=== PATIENT | female | born 1935 | race Caucasian/White ===

== ENCOUNTER 2017-03-19 17:22 | Emergency (ER) | payer MEDICARE, BC ==
[2017-03-19] MEDS ORDERED: Ketorolac INJ* 30 MG/ML 1 ML VIAL IV ONE (17:48)
[2017-03-19 18:36] LABS: Hematocrit 45 % (35-47); Hemoglobin 15.6 g/dl (12.0-16.0); Mean Corpuscular HGB Conc 35 g/dl (31-36); Mean Corpuscular Hemoglobin 33 pg (27-31); Mean Corpuscular Volume 94 fL (80-97); Mean Platelet Volume 9 um3 (7.4-10.4); Red Blood Count 4.77 10^6/ul (4.0-5.4); Red Cell Distribution Width 14 % (10.5-15); White Blood Count 9.7 10^3/ul (3.5-10.8)
--- NOTE | 2017-03-19 18:57 | RAD ---
INDICATION: LEFT side chest pain under breast since 2:00 AM. History of coronary artery disease with stent. COMPARISON: May 18, 2015 CT. TECHNIQUE: Dual energy PA and routine lateral views of the chest were obtained. REPORT: Elevated lung volumes and both diffuse mild prominence of the interstitial markings and patchy rarefaction of the mid to upper lung zone interstitial markings. No focal pulmonary lesion, compelling alveolar consolidation, pleural effusion, pneumothorax. The heart, pulmonary vasculature, and mediastinal contours are unremarkable. LEFT neck surgical clips. Multilevel predominant mild thoracic degenerative spondylosis. IMPRESSION: Stigmata of probable obstructive lung disease. No acute pulmonary or cardiac process evident.
[2017-03-19 19:00] LABS: Albumin 4.2 g/dL (3.2-5.2); BUN/Creatinine Ratio 21.9 (8-20); C Reactive Protein 12.37 mg/L (< 5.00); Calcium 9.4 mg/dL (8.6-10.3); EGFR African American 115.1 (>60); EGFR Non-African American 89.5 (>60); Globulin 2.5 g/dL (2-4); Total Bilirubin 0.4 mg/dL (0.2-1.0); Total Protein 6.7 g/dL (6.4-8.9)
[2017-03-19 20:16] VITALS: BP 122/56
--- NOTE | 2017-03-19 22:14 | ED ---
Rosalba Pena Alfonso, scribed for Michael Hernandez MD on 03/19/17 at 1828 . Back Pain - HPI Summary HPI Summary: This patient is a 81 year old female BIBA to [facility] c/o constant sharp left- sided upper back pain since 0200 today. The pain woke her up from sleep. She rates the pain 7/10 in severity. Sx aggravated and alleviated by nothing. Sx not aggravated by breathing or movement. She reports nausea. She denies vomiting. Pt took Tylenol 650 mg and ASA 324MG X2 RADIO OFFICER. Pt was given Zofran IV by EMS RADIO OFFICER. She is a heavy everyday tobacco smoker. - History of Current Complaint Chief Complaint: EDBackInjuryPain Stated Complaint: BACK PAIN Time Seen by Provider: 03/19/17 17:32 Hx Obtained From: Patient Onset/Duration: Sudden Onset, Lasting Hours - 0200 this morning, Still Present Onset/Duration: Started Hours Ago - 0200 this morning, Still Present Timing: Constant Back Pain Location: Is Discrete @ - Left sided upper back Severity Initially: Moderate Severity Currently: Moderate Pain Intensity: 7 Pain Scale Used: 0-10 Numeric Character: Sharp Aggravating Symptom(s): Nothing Alleviating Symptom(s): Nothing Associated Signs And Symptoms: Positive: Other - Positive nausea; negative vomiting - Allergies/Home Medications Allergies/Adverse Reactions: Allergies Allergy/AdvReac Type Severity Reaction Status Date / Time Morphine Allergy Headache Verified 05/18/15 17:34 PMH/Surg Hx/FS Hx/Imm Hx Endocrine/Hematology History: Denies: Hx Diabetes Cardiovascular History: Reports: Hx Angina, Hx Coronary Artery Disease, Hx Hypercholesterolemia, Hx Hypertension, Other Cardiovascular Problems/Disorders - CARDIAC CATH 1998 Denies: Hx Congestive Heart Failure Sensory History: Reports: Hx Contacts or Glasses, Hx Macular Degeneration, 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 1997-inguinal repair. endartarectomy. cardiac cath w/ stents Hx Anesthesia Reactions: Yes - becomes sesverly hypotensive Infectious Disease History: No Infectious Disease History: Denies: Hx Clostridium Difficile, Hx Hepatitis, Hx Human Immunodeficiency Virus (HIV), Hx of Known/Suspected MRSA, Hx Shingles, Hx Tuberculosis, Hx Known/ Suspected VRE, Hx Known/Suspected VRSA, History Other Infectious Disease, Traveled Outside the [place] in Last 30 Days - Family History Known Family History: Positive: Cardiac Disease - Father at 55 from CAD, Diabetes, Other - Colon cancer - Social History Alcohol Use: Rare Substance Use Type: Reports: None Smoking Status (MU): Heavy Every Day Tobacco Smoker Type: Cigarettes Amount Used/How Often: 1 ppd Have You Smoked in the Last Year: Yes Review of Systems Negative: Fever Positive: Nausea. Negative: Vomiting Positive: Arthralgia - left-sided upper back pain All Other Systems Reviewed And Are Negative: Yes Physical Exam Triage Information Reviewed: Yes Vital Signs On Initial Exam: Initial Vitals Temp Pulse Resp BP Pulse Ox 97.9 F 68 16 147/60 95 03/19/17 17:25 03/19/17 17:25 03/19/17 17:25 03/19/17 17:25 03/19/17 17:25 Vital Signs Reviewed: Yes Appearance: Positive: Well-Appearing, No Pain Distress Skin: Positive: Warm, Skin Color Reflects Adequate Perfusion, Dry Head/Face: Positive: Normal Head/Face Inspection Eyes: Positive: Normal ENT: Positive: Normal ENT inspection Neck: Positive: Supple, Nontender Respiratory/Lung Sounds: Positive: Clear to Auscultation, Breath Sounds Present Cardiovascular: Positive: RRR Abdomen Description: Positive: Nontender, Soft Bowel Sounds: Positive: Present Musculoskeletal: Positive: Normal Neurological: Positive: Normal, Sensory/Motor Intact, Alert, Oriented to Person Place, Time, CN Intact II-III Psychiatric: Positive: Affect/Mood Appropriate Diagnostics - Vital Signs Vital Signs Temp Pulse Resp BP Pulse Ox 03/19/17 17:44 97.9 F 75 16 147/60 96 03/19/17 17:25 97.9 F 68 16 147/60 95 - Laboratory Lab Results: Lab Results 03/19/17 03/19/17 03/19/17 Range/Units 18:24 18:24 18:24 WBC 9.7 (3.5-10.8) 10^3/ul RBC 4.77 (4.0-5.4) 10^6/ul Hgb 15.6 (12.0-16.0) g/dl Hct 45 (35-47) % MCV 94 (80-97) fL MCH 33 H (27-31) pg MCHC 35 (31-36) g/dl RDW 14 (10.5-15) % Plt Count 149 L (150-450) 10^3/ul MPV 9 (7.4-10.4) um3 Neut % (Auto) 72.9 (38-83) % Lymph % (Auto) 17.8 L (25-47) % [place] % (Auto) 8.4 (1-9) % Eos % (Auto) 0.5 (0-6) % Baso % (Auto) 0.4 (0-2) % Absolute Neuts (auto) 7.1 (1.5-7.7) 10^3/ul Absolute Lymphs (auto) 1.7 (1.0-4.8) 10^3/ul Absolute Monos (auto) 0.8 (0-0.8) 10^3/ul Absolute Eos (auto) 0 (0-0.6) 10^3/ul Absolute Basos (auto) 0 (0-0.2) 10^3/ul Absolute Nucleated RBC 0 10^3/ul Nucleated RBC % 0 D-Dimer, Quantitative < 200 (Less Than 230) ng/mL Sodium 137 (133-145) mmol/L Potassium 4.0 (3.5-5.0) mmol/L Chloride 104 (101-111) mmol/L Carbon Dioxide 27 (22-32) mmol/L Anion Gap 6 (2-11) mmol/L BUN 14 (6-24) mg/dL Creatinine 0.64 (0.51-0.95) mg/dL Est GFR ( Amer) 115.1 (>60) Est GFR (Non-Af Amer) 89.5 (>60) BUN/Creatinine Ratio 21.9 H (8-20) Glucose 106 H (70-100) mg/dL Lactic Acid (0.5-2.0) mmol/L Calcium 9.4 (8.6-10.3) mg/dL Total Bilirubin 0.40 (0.2-1.0) mg/dL AST 11 L (13-39) U/L ALT 9 (7-52) U/L Alkaline Phosphatase 81 (34-104) U/L Troponin I 0.00 (<0.04) ng/mL C-Reactive Protein 12.37 H (< 5.00) mg/L Total Protein 6.7 (6.4-8.9) g/dL Albumin 4.2 (3.2-5.2) g/dL Globulin 2.5 (2-4) g/dL Albumin/Globulin Ratio 1.7 (1-3) 06/28/17 Range/Units 18:24 WBC (3.5-10.8) 10^3/ul RBC (4.0-5.4) 10^6/ul Hgb (12.0-16.0) g/dl Hct (35-47) % MCV (80-97) fL MCH (27-31) pg MCHC (31-36) g/dl RDW (10.5-15) % Plt Count (150-450) 10^3/ul MPV (7.4-10.4) um3 Neut % (Auto) (38-83) % Lymph % (Auto) (25-47) % [place] % (Auto) (1-9) % Eos % (Auto) (0-6) % Baso % (Auto) (0-2) % Absolute Neuts (auto) (1.5-7.7) 10^3/ul Absolute Lymphs (auto) (1.0-4.8) 10^3/ul Absolute Monos (auto) (0-0.8) 10^3/ul Absolute Eos (auto) (0-0.6) 10^3/ul Absolute Basos (auto) (0-0.2) 10^3/ul Absolute Nucleated RBC 10^3/ul Nucleated RBC % D-Dimer, Quantitative (Less Than 230) ng/mL Sodium (133-145) mmol/L Potassium (3.5-5.0) mmol/L Chloride (101-111) mmol/L Carbon Dioxide (22-32) mmol/L Anion Gap (2-11) mmol/L BUN (6-24) mg/dL Creatinine (0.51-0.95) mg/dL Est GFR ( Amer) (>60) Est GFR (Non-Af Amer) (>60) BUN/Creatinine Ratio (8-20) Glucose (70-100) mg/dL Lactic Acid 1.1 (0.5-2.0) mmol/L Calcium (8.6-10.3) mg/dL Total Bilirubin (0.2-1.0) mg/dL AST (13-39) U/L ALT (7-52) U/L Alkaline Phosphatase (34-104) U/L Troponin I (<0.04) ng/mL C-Reactive Protein (< 5.00) mg/L Total Protein (6.4-8.9) g/dL Albumin (3.2-5.2) g/dL Globulin (2-4) g/dL Albumin/Globulin Ratio (1-3) Result Diagrams: 03/19/17 18:24 03/19/17 18:24 Lab Statement: Any lab studies that have been ordered have been reviewed, and results considered in the medical decision making process. - Radiology CXR Radiology Interpretation Completed By: Radiologist - Stigmata of probable obstructive lung disease. No acute pulmonary or cardiac process evident. - EKG 1756 Cardiac Rate: NL - BPM 67 EKG Rhythm: Sinus Rhythm Back Pain Course/Dx - Course Course Of Treatment: Ms. Fernando presented with left sided back pain that radiates to the front and woke her up at 0200. It has remained constant all day long and is not accompanied by any associated symptoms except some transient nausea and has no exacerbating or relieving features. Her ecg, labs and vitals were all normal and she will be D/C'd with a recommendation for close F/U. - Diagnoses Provider Diagnoses: Chest pain Discharge - Discharge Plan Condition: Stable Disposition: HOME Patient Education Materials: Chest Pain (ED) Referrals: Abilio Osorio MD [Primary Care Provider] - 1 Week Additional Instructions: Follow up with your primary care provider and take ibuprofen. The documentation as recorded by the Rosalba garcia Alfonso accurately reflects the service I personally performed and the decisions made by , Michael Hernandez MD.
== END 2017-03-19 20:10 | disposition home or self-care (01) ==
LOC: ED 17:22
DX: R07.9 Chest pain, unspecified (principal); R11.0 Nausea; F17.210 Nicotine dependence, cigarettes, uncomplicated; Z86.79 Personal history of other diseases of the circulatory system
CPT/HCPCS: 36415; 71020; 80053; 83605; 84484; 85025; 85379; 86140; 93005; 96374; 99283; J1885

== ENCOUNTER 2017-03-20 15:05 | Observation (INO) | payer MEDICARE, BC ==
[2017-03-20] MEDS ORDERED: Aspirin Low Dose CHEW TAB* 81 MG PO ONE (16:49)
[2017-03-20] MEDS ORDERED: Ondansetron INJ* 2 MG/ML VIAL IV ONE (16:49)
[2017-03-20] MEDS ORDERED: NS 0.9% 1000 ML* 1,000 ML IV ONE (16:49)
[2017-03-20] MEDS ORDERED: Lidocaine 2% VISCOUS* 15 ML UDC PO ONE (16:50)
[2017-03-20] MEDS ORDERED: Al Hydrox/Mg Hydrox/Simet LIQ* 30 ML UDC PO ONE (16:50)
[2017-03-20 17:28] LABS: Hematocrit 47 % (35-47); Hemoglobin 15.8 g/dl (12.0-16.0); Mean Corpuscular HGB Conc 34 g/dl (31-36); Mean Corpuscular Hemoglobin 32 pg (27-31); Mean Corpuscular Volume 95 fL (80-97); Mean Platelet Volume 9 um3 (7.4-10.4); Red Blood Count 4.94 10^6/ul (4.0-5.4); Red Cell Distribution Width 14 % (10.5-15); White Blood Count 11.6 10^3/ul (3.5-10.8)
[2017-03-20 17:45] LABS: Albumin 4.2 g/dL (3.2-5.2); BUN/Creatinine Ratio 26.8 (8-20); Calcium 9.4 mg/dL (8.6-10.3); EGFR African American 134.3 (>60); EGFR Non-African American 104.4 (>60); Globulin 2.6 g/dL (2-4); Potassium 4.1 mmol/L (3.5-5.0); Total Bilirubin 0.5 mg/dL (0.2-1.0); Total Protein 6.8 g/dL (6.4-8.9)
[2017-03-20] MEDS ORDERED: Iohexol 350* (CONTRAST) 500 ML MDV IV ONE (17:57)
[2017-03-20 18:08] LABS: TSH (Thyroid Stimulating Horm) 2.15 mcIU/mL (0.34-5.60)
--- NOTE | 2017-03-20 18:23 | RAD ---
Indication: Upper abdominal pain. Comparison: No relevant prior exams available on the [facility] PACS for comparison. Technique: RIGHT upper quadrant ultrasound. Report: Appropriate direction flow documented in the portal and hepatic veins. 14.6 cm liver is echogenic in echogenicity. Negative for focal hepatic lesions. Negative for intrahepatic biliary dilatation. 4.6 mm common bile duct. Adequately distended gallbladder with normal 2.4 mm wall is without pathologic finding. Negative for sonographic Herrmann's sign. Unremarkable well visualized pancreas. Negative for ascites. 10.6 x 4.6 x 5.1 cm LEFT kidney with normal cortical echogenicity is remarkable for a low suspicion parapelvic cysts at the lower pole. Approximate 5 mm echogenic focus at the upper pole is suspicious for a probable calyceal stone without caliectasis although there is no posterior acoustic shadowing to confirm presence of a stone. No suspicious lesions of the RIGHT kidney. IMPRESSION: 1. Hepatosteatosis . 2. Negative for gallbladder pathology. 3. Probable 5 mm nonobstructing stone upper pole RIGHT kidney.
[2017-03-20 18:58] LABS: Urine Bacteria Absent (Absent); Urine Bilirubin Negative (Negative); Urine Glucose Negative (Negative); Urine Nitrite Negative (Negative)
--- NOTE | 2017-03-20 19:23 | ED ---
Taylor Pena Salem, scribed for Patricio Mack MD on 03/20/17 at 1637 . Abdominal Pain/Female - HPI Summary HPI Summary: Patient is a 81 y/o F who presents to the ED with 9.5/10 upper abd pain and 7/ 10 left posterior chest pain since 0200 yesterday. She states that pain began in left posterior chest and abd pain followed. She also states that she was in the ED yesterday and per EMR, labs, EKG, and CXR were all negative. She denies taking pain or nausea medication home with her. She reports continued nausea and loss of appetite, but denies flank pain or changes in BM or urination. She states that pain is unchanged with anything. PMHx of diverticulosis, CAD with stent placement, and HLD, but denies hx of DM or GERD. PSHx of corpus luteum cyst surgery, twice, but denies other abd surgeries. She reports taking ASA daily. - History of Current Complaint Chief Complaint: EDAbdPain Stated Complaint: ABD AND BACK PAIN/NAUSEA Time Seen by Provider: 03/20/17 16:22 Hx Obtained From: Patient Onset/Duration: Gradual Onset, Lasting Days, Still Present Timing: Constant Severity Initially: Moderate Severity Currently: Moderate Pain Intensity: 8 Pain Scale Used: 0-10 Numeric Location: Discrete At: RUQ, Discrete At: LUQ Radiates: Yes Radiates to: Chest Aggravating Factor(s): Nothing Alleviating Factor(s): Nothing Associated Signs and Symptoms: Positive: Chest Pain, Back Pain, Decreased Appetite, Nausea, Other: - Abd pain.. 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 1997-inguinal repair. endartarectomy. cardiac cath w/ stents Hx Anesthesia Reactions: Yes - becomes sesverly hypotensive Infectious Disease History: No Infectious Disease History: Denies: Hx Clostridium Difficile, Hx Hepatitis, Hx Human Immunodeficiency Virus (HIV), Hx of Known/Suspected MRSA, Hx Shingles, Hx Tuberculosis, Hx Known/ Suspected VRE, Hx Known/Suspected VRSA, History Other Infectious Disease, Traveled Outside the [place] in Last 30 Days - Family History Known Family History: Positive: Cardiac Disease - Father at 55 from CAD, Diabetes, Other - Colon cancer. Diverticulosis. - Social History Alcohol Use: Rare Hx Substance Use: No Substance Use Type: Reports: None Hx Tobacco Use: Yes Smoking Status (MU): Heavy Every Day Tobacco Smoker Type: Cigarettes Amount Used/How Often: 1 ppd Have You Smoked in the Last Year: Yes Review of Systems Positive: Chest Pain Positive: Abdominal Pain, Nausea, Other - Loss of appetite. Genitourinary: Other - No changes in BM. Positive: no symptoms reported. Negative: flank pain Positive: Other - Back pain: upper, left. All Other Systems Reviewed And Are Negative: Yes Physical Exam Triage Information Reviewed: Yes Vital Signs On Initial Exam: Initial Vitals Temp Pulse Resp BP Pulse Ox 98.4 F 84 20 143/52 94 03/20/17 15:08 03/20/17 15:08 03/20/17 15:08 03/20/17 15:08 03/20/17 15:08 Vital Signs Reviewed: Yes Appearance: Positive: Well-Appearing, Pain Distress - Mild. Skin: Positive: Warm, Skin Color Reflects Adequate Perfusion, Dry Head/Face: Positive: Normal Head/Face Inspection Eyes: Positive: EOMI, CHITRA Neck: Positive: Supple, Nontender Respiratory/Lung Sounds: Positive: Clear to Auscultation, Breath Sounds Present Cardiovascular: Positive: RRR Abdomen Description: Positive: Nontender, Soft Bowel Sounds: Positive: Present Musculoskeletal: Positive: Normal, Strength/ROM Intact, Other - No pedal edema. Neurological: Positive: Normal, Sensory/Motor Intact, Alert, Oriented to Person Place, Time Psychiatric: Positive: Affect/Mood Appropriate Diagnostics - Vital Signs Vital Signs Temp Pulse Resp BP Pulse Ox 03/20/17 15:10 98.4 F 84 20 143/52 98 03/20/17 15:08 98.4 F 84 20 143/52 94 - Laboratory Lab Results: Lab Results 03/20/17 03/20/17 03/20/17 Range/Units 16:21 17:15 17:15 WBC 11.6 H (3.5-10.8) 10^3/ul RBC 4.94 (4.0-5.4) 10^6/ul Hgb 15.8 (12.0-16.0) g/dl Hct 47 (35-47) % MCV 95 (80-97) fL MCH 32 H (27-31) pg MCHC 34 (31-36) g/dl RDW 14 (10.5-15) % Plt Count 150 (150-450) 10^3/ul MPV 9 (7.4-10.4) um3 Neut % (Auto) 79.1 (38-83) % Lymph % (Auto) 12.4 L (25-47) % [place] % (Auto) 7.7 (1-9) % Eos % (Auto) 0.2 (0-6) % Baso % (Auto) 0.6 (0-2) % Absolute Neuts (auto) 9.2 H (1.5-7.7) 10^3/ul Absolute Lymphs (auto) 1.4 (1.0-4.8) 10^3/ul Absolute Monos (auto) 0.9 H (0-0.8) 10^3/ul Absolute Eos (auto) 0 (0-0.6) 10^3/ul Absolute Basos (auto) 0.1 (0-0.2) 10^3/ul Absolute Nucleated RBC 0 10^3/ul Nucleated RBC % 0 INR (Anticoag Therapy) 1.00 (0.89-1.11) APTT 30.9 (26.0-36.3) seconds Sodium (133-145) mmol/L Potassium (3.5-5.0) mmol/L Chloride (101-111) mmol/L Carbon Dioxide (22-32) mmol/L Anion Gap (2-11) mmol/L BUN (6-24) mg/dL Creatinine (0.51-0.95) mg/dL Est GFR ( Amer) (>60) Est GFR (Non-Af Amer) (>60) BUN/Creatinine Ratio (8-20) Glucose (70-100) mg/dL Lactic Acid (0.5-2.0) mmol/L Calcium (8.6-10.3) mg/dL Magnesium (1.9-2.7) mg/dL Total Bilirubin (0.2-1.0) mg/dL AST (13-39) U/L ALT (7-52) U/L Alkaline Phosphatase (34-104) U/L Total Creatine Kinase (10-223) U/L CK-MB (CK-2) (0.6-6.3) ng/mL Troponin I (<0.04) ng/mL C-Reactive Protein (< 5.00) mg/L B-Natriuretic Peptide ( - 100) pg/mL Total Protein (6.4-8.9) g/dL Albumin (3.2-5.2) g/dL Globulin (2-4) g/dL Albumin/Globulin Ratio (1-3) Lipase (11.0-82.0) U/L TSH (0.34-5.60) mcIU/mL Urine Color Yellow Urine Appearance Turbid Urine pH 5.0 (5-9) Ur Specific [place] 1.025 (1.010-1.030) Urine Protein Negative (Negative) Urine Ketones Negative (Negative) Urine Blood Negative (Negative) Urine Nitrate Negative (Negative) Urine Bilirubin Negative (Negative) Urine Urobilinogen Negative (Negative) Ur Leukocyte Esterase Trace H (Negative) Urine WBC (Auto) Trace(0-5/hpf) (Absent) Urine RBC (Auto) Absent (Absent) Ur Squamous Epith Cells Present H (Absent) Amorphous Crystals Present H (Absent) Urine Bacteria Absent (Absent) Urine Glucose Negative (Negative) Urine Ascorbic Acid * H (Negative) 03/20/17 03/20/17 03/20/17 Range/Units 17:15 17:15 17:15 WBC (3.5-10.8) 10^3/ul RBC (4.0-5.4) 10^6/ul Hgb (12.0-16.0) g/dl Hct (35-47) % MCV (80-97) fL MCH (27-31) pg MCHC (31-36) g/dl RDW (10.5-15) % Plt Count (150-450) 10^3/ul MPV (7.4-10.4) um3 Neut % (Auto) (38-83) % Lymph % (Auto) (25-47) % [place] % (Auto) (1-9) % Eos % (Auto) (0-6) % Baso % (Auto) (0-2) % Absolute Neuts (auto) (1.5-7.7) 10^3/ul Absolute Lymphs (auto) (1.0-4.8) 10^3/ul Absolute Monos (auto) (0-0.8) 10^3/ul Absolute Eos (auto) (0-0.6) 10^3/ul Absolute Basos (auto) (0-0.2) 10^3/ul Absolute Nucleated RBC 10^3/ul Nucleated RBC % INR (Anticoag Therapy) (0.89-1.11) APTT (26.0-36.3) seconds Sodium 135 (133-145) mmol/L Potassium 4.1 (3.5-5.0) mmol/L Chloride 101 (101-111) mmol/L Carbon Dioxide 26 (22-32) mmol/L Anion Gap 8 (2-11) mmol/L BUN 15 (6-24) mg/dL Creatinine 0.56 (0.51-0.95) mg/dL Est GFR ( Amer) 134.3 (>60) Est GFR (Non-Af Amer) 104.4 (>60) BUN/Creatinine Ratio 26.8 H (8-20) Glucose 102 H (70-100) mg/dL Lactic Acid 0.9 (0.5-2.0) mmol/L Calcium 9.4 (8.6-10.3) mg/dL Magnesium 2.0 (1.9-2.7) mg/dL Total Bilirubin 0.50 (0.2-1.0) mg/dL AST 11 L (13-39) U/L ALT 9 (7-52) U/L Alkaline Phosphatase 78 (34-104) U/L Total Creatine Kinase 31 (10-223) U/L CK-MB (CK-2) 1.4 (0.6-6.3) ng/mL Troponin I 0.00 (<0.04) ng/mL C-Reactive Protein 34.00 H (< 5.00) mg/L B-Natriuretic Peptide 37 ( - 100) pg/mL Total Protein 6.8 (6.4-8.9) g/dL Albumin 4.2 (3.2-5.2) g/dL Globulin 2.6 (2-4) g/dL Albumin/Globulin Ratio 1.6 (1-3) Lipase 108 H (11.0-82.0) U/L TSH 2.15 (0.34-5.60) mcIU/mL Urine Color Urine Appearance Urine pH (5-9) Ur Specific [place] (1.010-1.030) Urine Protein (Negative) Urine Ketones (Negative) Urine Blood (Negative) Urine Nitrate (Negative) Urine Bilirubin (Negative) Urine Urobilinogen (Negative) Ur Leukocyte Esterase (Negative) Urine WBC (Auto) (Absent) Urine RBC (Auto) (Absent) Ur Squamous Epith Cells (Absent) Amorphous Crystals (Absent) Urine Bacteria (Absent) Urine Glucose (Negative) Urine Ascorbic Acid (Negative) Result Diagrams: 03/20/17 17:15 03/20/17 17:15 Lab Statement: Any lab studies that have been ordered have been reviewed, and results considered in the medical decision making process. - CT CTA CHEST CT Interpretation Completed By: Radiologist - IMPRESSION: see EMR pending radiology. - Ultrasound No standard instances Ultrasound Interpretation Completed By: Radiologist - US GALLBLADDER: IMPRESSION : 1. Hepatosteatosis . 2. Negative for gallbladder pathology. 3. Probable 5 mm nonobstructing stone upper pole RIGHT kidney. - EKG 1849 EKG Interpretation: NSR @ 68 bpm with PVC's. No ectopy. Abdominal Pain Fem Course/Dx - Course Course Of Treatment: No critical care time. Admit hospitalist stable. - Diagnoses Provider Diagnoses: Abdominal pain, Chest pain - Provider Notifications Discussed Care Of Patient With: Prosper Gerber Time Discussed With Above Provider: 19:06 Instructed by Provider To: Admit As Inpatient Admit/Transition Orders Completed By ED Provider: Yes Discharge - Discharge Plan Condition: Stable Disposition: ADMITTED TO [facility] Referrals: Abilio Osorio MD [Primary Care Provider] - The documentation as recorded by the Taylor garcia Salem accurately reflects the service I personally performed and the decisions made by , Patricio Mack MD.
--- NOTE | 2017-03-20 20:02 | RAD ---
INDICATION: Upper abdominal and back pain. Nausea. Post fallopian tube and ovary resection. Post inguinal hernia repair. Coronary artery disease with stents. COMPARISON: RIGHT upper quadrant ultrasound of the same date. May 18, 2015 CT. TECHNIQUE: Multidetector CT images were obtained from the lung apices to the ischial tuberosities with 100 mL Omnipaque 350 IV contrast. Oral contrast administered. CT pulmonary angiogram protocol. Multiplanar reformation including maximum intensity projection images of the thorax. CHEST REPORT: Minimal dependent atelectasis. Negative for pulmonary infiltrate, focal pulmonary lesion, pleural effusion, pneumothorax. Negative for thoracic lymphadenopathy, cardiomegaly, pericardial effusion. Cardiac stents noted. Normal diameter thoracic aorta with minimal atherosclerotic plaque. Negative for aortic dissection. No filling defects are identified from the main to the subsegmental pulmonary arteries to indicate presence of a pulmonary embolism. Negative for suspicious thoracic osseous lesions or fractures. CHEST IMPRESSION: 1. Negative for pulmonary embolism. 2. Negative for thoracic aortic aneurysm or dissection. 3. No acute intrathoracic disease evident. ABDOMEN PELVIS REPORT: Unremarkable liver and gallbladder. Negative for biliary dilatation. Mild reticulation of the fat surrounding the uncinate process of the pancreas. No visualized focal pancreatic lesion or duct dilatation. No calcifications visualized along the course of the common bile duct. Unremarkable spleen. Noted reticulation of the retroperitoneal fat surrounding the uncinate process of the pancreas is also inseparable from the proximal third segment of the duodenum without gross duodenal wall thickening. No CT abnormality of the jejunum, ileum, or infra cecal appendix. Severe colonic diverticulosis without findings of diverticulitis. Negative for ascites, free air, significant hernias. Normal adrenal glands. Symmetric nephrograms and pyelograms. Negative for hydronephrosis. No suspicious focal renal lesions. Small parapelvic cyst inferior pole RIGHT kidney. Negative for nephrolithiasis or hydronephrosis. Echogenic focus on ultrasound of the same date likely corresponds with a focus of medullary fat without concern. Unremarkable nondilated ureters and distended urinary bladder as well as the anteverted uterus and adnexal regions. Negative for lymphadenopathy. Atherosclerotic plaque of the abdominal aorta and iliac arteries without aneurysm. Partial decompression of the IVC suggesting lower volume state. 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 Negative for suspicious focal osseous lesions or fracture. ABDOMEN PELVIS IMPRESSION: 1. Mild reticulation of the fat surrounding the uncinate process of the pancreas most likely secondary to mild acute pancreatitis. Mild duodenitis would also be possible. No retroperitoneal loculated fluid collection or abnormal gas evident. 2. Severe colonic diverticulosis without evidence for diverticulitis. Normal appendix documented. 3. Negative for lymphadenopathy.
[2017-03-20] MEDS ORDERED: Metoprolol Succinate XL TAB* 25 MG PO SCH (21:00)
[2017-03-20] MEDS ORDERED: Aspirin EC Low Dose* 81 MG TAB.EC PO SCH (21:00)
[2017-03-20] MEDS: Ketorolac INJ* 15 MG/ML 1 ML VIAL IV PUSH PRN (22:42)
[2017-03-20] MEDS: NS 0.9% 1000 ML* 1,000 ML IV SCH (22:43)
[2017-03-20] MEDS: Ondansetron INJ* 2 MG/ML VIAL IV PRN (23:42)
[2017-03-21] MEDS ORDERED: Nicotine Inhaler* 10 MG AMP INH PRN (03:31)
[2017-03-21] MEDS: Heparin VIAL(*) 5000 UNITS/ML VIAL (FIVE THOUSAND) SUBCUT SCH ×2 (05:28→13:45)
[2017-03-21] MEDS ORDERED: Mouth Piece, Nicotine* 1 EACH CARTRIDGE ONE (05:56)
[2017-03-21] MEDS: Ketorolac INJ* 15 MG/ML 1 ML VIAL IV PUSH PRN (06:08)
[2017-03-21] MEDS: Ondansetron INJ* 2 MG/ML VIAL IV PRN (06:09)
[2017-03-21] MEDS ORDERED: Clopidogrel TAB* 75 MG PO SCH (09:00)
[2017-03-21] MEDS ORDERED: amLODIPine TAB* 5 MG PO SCH (09:00)
[2017-03-21 09:07] LABS: Hematocrit 42 % (35-47); Hemoglobin 14.1 g/dl (12.0-16.0); Mean Corpuscular HGB Conc 34 g/dl (31-36); Mean Corpuscular Hemoglobin 32 pg (27-31); Mean Corpuscular Volume 96 fL (80-97); Mean Platelet Volume 9 um3 (7.4-10.4); Red Blood Count 4.36 10^6/ul (4.0-5.4); Red Cell Distribution Width 14 % (10.5-15)
[2017-03-21 09:19] LABS: EGFR African American 131.6 (>60); EGFR Non-African American 102.3 (>60)
[2017-03-21] MEDS: NS 0.9% 1000 ML* 1,000 ML IV SCH (09:23)
--- NOTE | 2017-03-21 10:20 | HP ---
CC: Abilio Osorio MD* HISTORY AND PHYSICAL: ADMISSION DATE: 03/20/17 CHIEF COMPLAINT: Chest, back, and abdominal pain. HISTORY OF PRESENT ILLNESS: The patient is a 81-year-old woman who said yesterday she woke up with pain in her left back. She just could not get comfortable. She could not quantify it on a scale of 0 to 10. It went on all day long and now it seems to be worse. She has nausea, but no vomiting. She feels bloated, too. States she had no chest pain, but today it seemed to migrate to under her left breast. She has no shortness of breath. She has no palpitations. She has no fevers or chills. In the ED, the patient was evaluated and found to have a mildly elevated lipase and possible acute pancreatitis based on the CT findings. PAST MEDICAL HISTORY: The patient has a past medical history significant for hypertension, hyperlipidemia, coronary artery disease status post stent placement, COPD. PAST SURGICAL HISTORY: Significant for left carotid endarterectomy with restenosis and stent placement. ALLERGIES: She has no known drug allergies. FAMILY HISTORY: Reviewed and noncontributory. SOCIAL HISTORY: She still smokes a pack a day and has done so for 66 years. She has no alcohol or recreational drug use. She is retired. Used to be a nursing associate. She is a with 7 children. Her daughter, Kenia Silvestre, and her son, Sharad Fernando, are her healthcare proxies. REVIEW OF SYSTEMS: A 14-point review of systems was completed with the patient. All pertinent positives and negatives are in the history of present illness, otherwise it is negative. PHYSICAL EXAMINATION GENERAL: She is a pleasant woman, sitting up in bed, in no acute distress. VITAL SIGNS: Her temperature 98.6 degrees, heart rate 70 beats per minute, respiratory rate 18 breaths per minute, pulse ox 97%, blood pressure 147/68. HEENT: Normocephalic and atraumatic. Pupils are equal, round, and reactive to light. Moist mucous membranes. NECK: Supple. No JVD, bruits, or palpable thyroid or lymphadenopathy. CHEST: Clear to auscultation and percussion bilaterally. CARDIOVASCULAR: S1, S2 appreciated. ABDOMINAL EXAM: Positive bowel sounds in all 4 quadrants. Soft, nontender, nondistended. EXTREMITIES: No cyanosis, clubbing, or edema. +2 pulses bilaterally. NEURO: Alert and oriented x3. Moves all extremities. SKIN: No rashes or abnormalities. DIAGNOSTIC STUDIES/LAB DATA: White count of 1.6, hemoglobin 15.8, hematocrit 47, platelets 150. Sodium 135, potassium 4.1, chloride 101, CO2 26, BUN 15, creatinine 3.56, glucose 102. Troponin is 0.0. Lipase 108. INR is 1. UA shows trace leukocyte esterase, but no white cells, no RBC's. Ultrasound of her gallbladder shows hepatic steatosis, negative for gallbladder pathology, probably 5-mm nonobstructing stone in the upper pole of right kidney. Her EKG shows sinus rhythm with 68 beats per minute, normal axis, PVC's, no acute ST-T wave changes. CTA of the chest, abdomen, and pelvis shows negative pulmonary for embolism, negative for thoracic aortic aneurysm dissection, no acute intrathoracic disease evident. Mild reticulation of the , unclear process of the pancreas, most likely secondary to mild acute pancreatitis, mild duodenitis could also be possible, no retroperitoneal loculated fluid collection or abnormal gas evident, severe colonic diverticulosis without evidence for diverticulitis. Normal appendix documented, negative for lymphadenopathy. ASSESSMENT AND PLAN: 1. Back, chest, and abdominal pain. Very unlikely to be cardiac. Symptoms are not consistent with this. Troponins are negative so far. No evidence of a PE. The most likely cause of this, although quite mild, is slightly elevated lipase and findings in CAT scan consistent with acute pancreatitis. I will place the patient on normal saline 100 cc an hour. I will make the patient NPO, I will give the patient Zofran for nausea, Dilaudid for pain, and I anticipate this will quickly resolve. 2. Hypertension. Blood pressure slightly elevated, monitor and adjust medications if necessary. 3. Coronary artery disease. Stable, continue current regimen. 4. FEN. NPO, fluids as noted. 5. DVT prophylaxis. Heparin subcu. 6. The patient is a full code. TIME SPENT: Over 75 minutes were spent on this H and P, more than 40 minutes of which were spent in direct [id number] contact with the patient in evaluation, physical exam, and counselling and coordination of care. [id number]/[facility] #: [id number] [facility]
[2017-03-21 15:35] VITALS: BP 142/70
--- NOTE | 2017-03-22 19:29 | DS ---
CC: Dr. Anette Londono* DISCHARGE SUMMARY: DATE OF ADMISSION: 03/20/17 DATE OF DISCHARGE: 03/21/17 PRIMARY CARE PHYSICIAN: Anette Londono MD. DISCHARGE DIAGNOSIS: Abdominal pain due to acute pancreatitis. SECONDARY DIAGNOSES: 1. Hypertension. 2. Hyperlipidemia. 3. Coronary artery disease, status post stent placement. 4. History of chronic obstructive pulmonary disease. 5. History of left carotid endarterectomy, with restenosis and stent placement. MEDICATIONS AT DISCHARGE: Include: 1. Percocet 5/325 mg 1 tablet p.o. q.6 hours for pain. Patient was given a prescription for 20 tablets total. I-STOP was checked and the patient's last controlled substance prescription was on 12/16/16, for a 7-day supply of tramadol. The remaining medications are unchanged and include: 1. Aspirin 81 mg daily. 2. Plavix 75 mg daily. 3. Toprol XL 25 mg daily. 4. Amlodipine 5 mg daily. LABORATORY DATA: On 03/21/17, white blood cell count of 8.0, hemoglobin of 14.1 , hematocrit of 42 and platelets of 136. Creatinine of 0.57, BUN 12, lipase of 80. C-reactive protein was 34 on admission. Troponin was 0 to 0.01 throughout the patient's hospital stay. TSH was 2.15 on presentation. Gallbladder ultrasound performed on 03/20/17. Impression: "Hepatosteatosis. Negative for gallbladder pathology. Probable 5 mm nonobstructing stone, upper pole of right kidney." CTA of the chest, abdomen, and pelvis obtained on 03/20/17. Impression: "Negative for pulmonary embolism. Negative for thoracic aortic aneurysmal dissection. No acute intrathoracic disease evident. Mild reticulation of the fat surrounding the uncinate process of the pancreas, most likely secondary to mild acute pancreatitis. Mild duodenitis with ulcer possible. No retroperitoneal loculated fluid collection or abnormal gas evident. Severe colonic diverticulosis without evidence for diverticulitis. Normal appendix documented. Negative for lymphadenopathy." HOSPITALIZATION COURSE: Fernanda Fernando is a 81-year-old female who presented complaining of severe epigastric and left upper quadrant abdominal pain radiating to the back. She was noted to have a slight elevation of lipase at 108 on admission and evidence of stranding around the uncinate process of the pancreas suggestive of pancreatitis. The patient also complained of nausea and some vomiting. The patient was observed on telemetry monitored floor initially due to her history of heart disease, but her troponins continued to be negative and her pain was not located in her chest. After a night spent in the hospital , she was introduced on clear liquid diet with good results. She had two bowel movements prior to discharge. She also was on soft diet at lunch prior to discharge and tolerated it well. She complained of abdominal distention and still feeling unwell on the day of discharge. At this point, the patient was offered to stay another day for observation and monitoring and pain control. At this point, the patient refused to stay in the hospital and she requested to be discharged. She stated that she does have a history of bad reaction to morphine with nausea, but she agrees to take Percocet. 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 " She is going to be discharged home with recommendation to followup with Dr. Londono in approximately 4 to 7 days. PHYSICAL EXAMINATION: At the time of discharge blood pressure of 142/70, heart rate of 69 and regular, respiratory rate 18, oxygen saturation 96% on room air, and his temperature is 97.7. General: This is a very pleasant 81-year-old female, who is in no acute distress. Alert, awake, and oriented x3. HEENT: Head: Atraumatic, normocephalic. Eyes: Pupils equal, reactive to light and accommodation. Oropharynx clear. Mucosa moist. Neck: Supple. No JVD. No bruits bilaterally. Cardiovascular: Regular rate and rhythm. No murmur. Respiratory: Clear to auscultation bilaterally. Abdomen: Slightly distended, soft. Minimally tender in the epigastric region, with no rebound and no guarding. Bowel sounds present in all 4 quadrants. Extremities: There is edema. Pulses are +2 bilaterally. No clubbing or cyanosis. Please note that this is a short summary for the patient's hospital stay. Please refer to further medical records for details. [id number]/[facility] #: [id number] [facility]TDD
== END 2017-03-21 16:15 | disposition home or self-care (01) ==
LOC: ED 15:05 → MEDTELE 20:29
PROVIDERS: ADMIT Internal Medicine; ATTEND Internal Medicine
DX: K85.90 Acute pancreatitis without necrosis or infection, unspecified (principal); R10.9 Unspecified abdominal pain; I10 Essential (primary) hypertension; E78.5 Hyperlipidemia, unspecified; I25.10 Atherosclerotic heart disease of native coronary artery without angina pectoris; Z95.5 Presence of coronary angioplasty implant and graft; Z79.82 Long term (current) use of aspirin; Z79.01 Long term (current) use of anticoagulants; J44.9 Chronic obstructive pulmonary disease, unspecified
CPT/HCPCS: 36415; 71275; 74177; 76705; 80053; 81003; 81015; 82550; 82553; 82565; 83605; 83690; 83735; 83880; 84443; 84484; 84520; 85025; 85610; 85730; 86140; 87086; 93005; 96374; 99284; A9270-GY; G0378; J1644; J1885; J2405; Q9967

== ENCOUNTER 2017-09-17 19:26 | Emergency (ER) | payer MEDICARE, BC ==
[2017-09-17] MEDS ORDERED: NS 0.9% 1000 ML* 1,000 ML IV ONE (20:07)
[2017-09-17] MEDS ORDERED: Ondansetron INJ* 2 MG/ML VIAL IV ONE (20:09)
[2017-09-17] MEDS ORDERED: Meclizine TAB* 12.5 MG PO ONE (20:09)
[2017-09-17] MEDS ORDERED: Meclizine TAB* 12.5 MG ONE (20:26)
[2017-09-17 20:31] LABS: ABS Basophils 0 10^3/ul (0-0.2); ABS Eosinophils 0 10^3/ul (0-0.6); ABS Lymphocytes 1.6 10^3/ul (1.0-4.8); ABS Monocytes 0.6 10^3/ul (0-0.8); ABS Nucleated RBC 0.01 10^3/ul; Eosinophil % 0.3 % (0-6); Hematocrit 41 % (35-47); Hemoglobin 14.6 g/dl (12.0-16.0); Lymphocyte % 21.6 % (25-47); Mean Corpuscular HGB Conc 35 g/dl (31-36); Mean Corpuscular Hemoglobin 33 pg (27-31); Mean Corpuscular Volume 94 fL (80-97); Mean Platelet Volume 8 um3 (7.4-10.4); Nucleated Red Blood Cells % 0.2; Platelet Count 150 10^3/ul (150-450); Red Blood Count 4.39 10^6/ul (4.0-5.4); Red Cell Distribution Width 14 % (10.5-15); White Blood Count 7.2 10^3/ul (3.5-10.8)
[2017-09-17 20:44] LABS: EGFR Non-African American 87.9 (>60)
--- NOTE | 2017-09-17 20:55 | RAD ---
INDICATION: Vertigo. COMPARISON: Comparison is made with a prior MRI of the brain from April 28, 2007. TECHNIQUE: Contiguous axial sections of the brain were obtained from the skull base to the vertex without contrast. FINDINGS: The ventricles, cisterns and sulci are within normal limits. No significant focal abnormality or mass effect is seen. There is no evidence for hemorrhage. No significant focal osseous abnormality is seen. The visualized portion of the paranasal sinuses and mastoid air cells appear clear. IMPRESSION: NO EVIDENCE FOR ACUTE INTRACRANIAL ABNORMALITY.
[2017-09-17 21:52] VITALS: BP 118/57
--- NOTE | 2017-09-17 21:59 | ED ---
Chapin Pena Tecjoon, scribed for Maria Esther Morales MD on 09/17/17 at 2008 . Dizziness - HPI Summary HPI Summary: This patient is a 81 year old female BIBA to [facility] with a chief complaint of dizziness since 1600 today. Patient states the dx were sudden onset. The pain is rated 10/10 in severity. Patient describes the dizziness as room spinning and lightheadedness. Symptoms aggravated by movement. Symptoms alleviated by nothing. Patient additionally reports nausea, headache. Patient denies vomiting. Patient is unfamiliar with symptoms. - History Of Current Complaint Chief Complaint: EDHeadache Stated Complaint: DIZZINESS Time Seen by Provider: 09/17/17 19:47 Hx Obtained From: Patient Onset/Duration: Suddenly Timing: Constant Severity Initially: Moderate - 10/10 Severity Currently: Moderate Character: Room Spinning, Lightheaded, Dizzy Aggravating Factor(s): Other - any movement Alleviating Factor(s): Nothing Associated Signs And Symptoms: Positive: Negative - vomiting, Other: - nausea, headache - Allergies/Home Medications Allergies/Adverse Reactions: Allergies Allergy/AdvReac Type Severity Reaction Status Date / Time Morphine Allergy Headache Verified 03/20/17 17:54 PMH/Surg Hx/FS Hx/Imm Hx Previously Healthy: No Endocrine/Hematology History: Denies: Hx Diabetes Cardiovascular History: Reports: Hx Angina, Hx Coronary Artery Disease, Hx Hypercholesterolemia, Hx Hypertension, Other Cardiovascular Problems/Disorders - CARDIAC CATH 1998 Denies: Hx Congestive Heart Failure Sensory History: Reports: Hx Contacts or Glasses, Hx Macular Degeneration, Hx Hearing Problem - pressure in left ear Denies: Hx Cataracts - implants, Hx Hearing Aid Opthamlomology History: Reports: Hx Contacts or Glasses, Hx Macular Degeneration Denies: Hx Cataracts - implants - Surgical History Surgery Procedure, Year, and Place: 1995 ruptured fallopian tube/ovary removal. 1997-inguinal repair. endartarectomy. cardiac cath w/ stents Hx Anesthesia Reactions: Yes - becomes sesverly hypotensive Infectious Disease History: No Infectious Disease History: Denies: Hx Clostridium Difficile, Hx Hepatitis, Hx Human Immunodeficiency Virus (HIV), Hx of Known/Suspected MRSA, Hx Shingles, Hx Tuberculosis, Hx Known/ Suspected VRE, Hx Known/Suspected VRSA, History Other Infectious Disease, Traveled Outside the [place] in Last 30 Days - Family History Known Family History: Positive: Cardiac Disease - Father at 55 from CAD, Diabetes, Other - Colon cancer. Diverticulosis. - Social History Alcohol Use: None Hx Substance Use: No Substance Use Type: Reports: None Hx Tobacco Use: Yes Smoking Status (MU): Heavy Every Day Tobacco Smoker Type: Cigarettes Amount Used/How Often: 1 ppd Have You Smoked in the Last Year: Yes Review of Systems Negative: Fever Positive: Nausea. Negative: Vomiting Neurological: Other - dizziness Positive: Headache All Other Systems Reviewed And Are Negative: Yes Physical Exam - Summary Physical Exam Summary: VITAL SIGNS: Reviewed. GENERAL: Patient is a well-developed and nourished female who is lying comfortable in the stretcher. Patient is not in any acute respiratory distress. HEAD AND FACE: No signs of trauma. No ecchymosis, hematomas or skull depressions. No sinus tenderness. EYES: PERRLA, EOMI x 2, No injected conjunctiva, no nystagmus. EARS: Hearing grossly intact. Ear canals and tympanic membranes are within normal limits. MOUTH: Oropharynx within normal limits. NECK: Supple, trachea is midline, no adenopathy, no JVD, no carotid bruit, no c- spine tenderness, neck with full ROM. CHEST: Symmetric, no tenderness at palpation LUNGS: Clear to auscultation bilaterally. No wheezing or crackles. CVS: Regular rate and rhythm, S1 and S2 present, no murmurs or gallops appreciated. ABDOMEN: Soft, non-tender. No signs of distention. No rebound no guarding, and no masses palpated. Bowel sounds are normal. EXTREMITIES: FROM in all major joints, no edema, no cyanosis or clubbing. NEURO: Alert and oriented x 3. No acute neurological deficits. Speech is normal and follows commands. Normal coordination, No dysmetria. SKIN: Dry and warm Triage Information Reviewed: Yes Vital Signs On Initial Exam: Initial Vitals BP 145/73 09/17/17 19:34 Vital Signs Reviewed: Yes Diagnostics - Vital Signs Vital Signs Temp Pulse Resp BP Pulse Ox 09/17/17 19:42 98.8 F 62 16 145/73 99 09/17/17 19:36 67 18 96 09/17/17 19:34 145/73 - Laboratory Result Diagrams: 09/17/17 20:18 09/17/17 20:18 Lab Statement: Any lab studies that have been ordered have been reviewed, and results considered in the medical decision making process. - CT CT Brain CT Interpretation: No Acute Changes - IMPRESSION: NO EVIDENCE FOR ACUTE INTRACRANIAL ABNORMALITY. ED physician has reviewed this radiology report. CT Interpretation Completed By: Radiologist Re-Evaluation - Re-Evaluation First Eval Re-Evaluation Time: 21:52 Change: Improved Comment: Patient feels better. Asymptomatic at this time. Dizzy Course/Dx - Course Course Of Treatment: This patient is a 81 year old female BIBA to [facility] with a chief complaint of dizziness since 1600 today. Patient states the dx were sudden onset. CT Brain reveals, per radiologist, IMPRESSION: NO EVIDENCE FOR ACUTE INTRACRANIAL ABNORMALITY. ED physician has reviewed this radiology report. Bloodwork Obtained. Urinalysis Obtained. In the ED course the patient was given Zofran, Antivert. Patient will be diagnosed with Benign positional vertigo and discharged home with a prescription for Antivert. She is advised to follow up with PCP in 3 days. The patient is agreeable with this plan. - Diagnoses Provider Diagnoses: Benign positional vertigo Discharge - Discharge Plan Condition: Fair Disposition: HOME Referrals: Sharad Muñoz [Primary Care Provider] - 3 Days Additional Instructions: Patient will be diagnosed with Benign positional vertigo and discharged home with a prescription for Antivert. She is advised to follow up with PCP in 3 days. The patient is agreeable with this plan. RETURN TO EMERGENCY DEPARTMENT FOR ANY NEW OR WORSENING SYMPTOMS The documentation as recorded by the Chapin garcia Tecjoon accurately reflects the service I personally performed and the decisions made by , Maria Esther Morales MD.
== END 2017-09-17 22:11 | disposition home or self-care (01) ==
LOC: ED 19:26
DX: H81.10 Benign paroxysmal vertigo, unspecified ear (principal); R11.0 Nausea; R51 Headache; F17.210 Nicotine dependence, cigarettes, uncomplicated
CPT/HCPCS: 36415; 70450; 80053; 85025; 96374; 99283; A9270-GY; J2405

== ENCOUNTER 2018-04-28 14:40 | Emergency (ER) | payer MEDICARE, BC ==
--- NOTE | 2018-04-28 16:02 | ED ---
Allergic Reaction/Systemic - HPI Summary HPI Summary: Patient is an 82-year-old female with no history of allergies presenting to the ED with a diffuse allergic reaction which began approximately 30 minutes [employer]IOR UI [employer]. She states immediately following getting into the pool, she developed itching and redness throughout. She endorses using a new Algae brand to clean the pool. She denies any shortness of breath or throat symptoms. She immediately left the Ty and took a shower which improved her symptoms. Ambulance was called and she was given 8 mg ODT Zofran, dexamethasone and 50 mg Benadryl. On arrival, he states she is feeling improved and denies any rash or hives at this time. - History of Current Complaint Chief Complaint: EDAllergicReaction Time Seen by Provider: 04/28/18 15:12 Hx Obtained From: Patient Onset/Duration: Sudden Onset Timing: Intermittent, Lasting Minutes Severity Initially: Severe Severity Currently: None Pain Intensity: 0 Pain Scale Used: 0-10 Numeric Location: Diffuse Character: Pruritus, Hives Alleviating Factor(s): Antihistamines Associated Signs And Symptoms: Positive: Negative. Negative: Abdominal Pain, Cough Wheezing, Diaphoresis, Hoarseness, Lightheadedness, Throat Tightening - Related Hx Possible Reaction To: Environmental Exposure - Allergies/Home Medications Allergies/Adverse Reactions: Allergies Allergy/AdvReac Type Severity Reaction Status Date / Time MS Morphine [Morphine] Allergy Headache Verified 03/20/17 17:54 PMH/Surg Hx/FS Hx/Imm Hx Previously Healthy: Yes Endocrine/Hematology History: Denies: Hx Diabetes Cardiovascular History: Reports: Hx Angina, Hx Coronary Artery Disease, Hx Hypercholesterolemia, Hx Hypertension, Other Cardiovascular Problems/Disorders - CARDIAC CATH 1998 Denies: Hx Congestive Heart Failure Sensory History: Reports: Hx Contacts or Glasses, Hx Macular Degeneration, Hx Hearing Problem - pressure in left ear Denies: Hx Cataracts - implants, Hx Hearing Aid Opthamlomology History: Reports: Hx Contacts or Glasses, Hx Macular Degeneration Denies: Hx Cataracts - implants - Surgical History Surgery Procedure, Year, and Place: 1995 ruptured fallopian tube/ovary removal. 1997-inguinal repair. endartarectomy. cardiac cath w/ stents Hx Anesthesia Reactions: Yes - becomes sesverly hypotensive - Immunization History Hx Pertussis Vaccination: No Immunizations Up to Date: Yes Infectious Disease History: No Infectious Disease History: Denies: Hx Clostridium Difficile, Hx Hepatitis, Hx Human Immunodeficiency Virus (HIV), Hx of Known/Suspected MRSA, Hx Shingles, Hx Tuberculosis, Hx Known/ Suspected VRE, Hx Known/Suspected VRSA, History Other Infectious Disease, Traveled Outside the [place] in Last 30 Days - Family History Known Family History: Positive: Cardiac Disease - Father at 55 from CAD, Diabetes, Other - Colon cancer. Diverticulosis. - Social History Alcohol Use: None Hx Substance Use: No Substance Use Type: Reports: None Hx Tobacco Use: Yes Smoking Status (MU): Heavy Every Day Tobacco Smoker Type: Cigarettes Amount Used/How Often: 1 ppd Have You Smoked in the Last Year: Yes Review of Systems Constitutional: Negative Negative: Photophobia, Blurred Vision, Diplopia, Drainage Negative: Palpitations, Chest Pain Negative: Shortness Of Breath, Cough Negative: Abdominal Pain Negative: Rash, Bruising Psychological: Normal All Other Systems Reviewed And Are Negative: Yes Physical Exam Triage Information Reviewed: Yes Vital Signs On Initial Exam: Initial Vitals Temp Pulse Resp BP Pulse Ox 97.9 F 80 17 157/81 96 04/28/18 15:03 04/28/18 15:03 04/28/18 15:03 04/28/18 15:03 04/28/18 15:03 Vital Signs Reviewed: Yes Appearance: Positive: Well-Appearing, Well-Nourished Skin: Positive: Warm, Skin Color Reflects Adequate Perfusion Head/Face: Positive: Normal Head/Face Inspection Eyes: Positive: EOMI, CHITRA, Conjunctiva Clear Neck: Positive: Supple, No Lymphadenopathy Respiratory/Lung Sounds: Positive: Clear to Auscultation, Breath Sounds Present Cardiovascular: Positive: RRR, Pulses are Symmetrical in both Upper and Lower Extremities Musculoskeletal: Positive: Normal, Strength/ROM Intact Neurological: Positive: Speech Normal Psychiatric: Positive: Normal, Affect/Mood Appropriate AVPU Assessment: Alert Diagnostics - Vital Signs Vital Signs Temp Pulse Resp BP Pulse Ox 04/28/18 15:03 97.9 F 80 17 157/81 96 - Laboratory Lab Statement: Any lab studies that have been ordered have been reviewed, and results considered in the medical decision making process. Allergic Reaction Course/Dx - Course Course Of Treatment: The patient is evaluated for a recent generalized allergic reaction secondary to chemicals in her pool. On arrival, she is asymptomatic after receiving dexamethasone and Benadryl. Airways patent, lungs clear to auscultation bilaterally, RRR. Patient appears well and nontoxic. She will be discharged home and encouraged Benadryl if she starts to develops hives again. She understands return precautions for any worsening symptoms. - Diagnoses Differential Diagnosis/HQI/PQRI: Positive: Local Allergic Reaction Provider Diagnoses: Allergic reaction Discharge - Sign-Out/Discharge Documenting (check all that apply): Patient Departure - Discharge Plan Condition: Stable Disposition: HOME Patient Education Materials: General Allergic Reaction (ED) Referrals: Sharad Muñoz [Primary Care Provider] - Additional Instructions: Benadryl 50mg if you develop worsening hives If you develop any throat symptoms or breathing symptoms- return to the ED - Billing Disposition and Condition Condition: STABLE Disposition: Home
[2018-04-28 16:22] VITALS: BP 149/70
== END 2018-04-28 16:20 | disposition home or self-care (01) ==
LOC: ED 14:40
DX: T78.40XA Allergy, unspecified, initial encounter (principal); X58.XXXA Exposure to other specified factors, initial encounter; F17.210 Nicotine dependence, cigarettes, uncomplicated; Z88.5 Allergy status to narcotic agent
CPT/HCPCS: 99282

== ENCOUNTER 2018-09-23 14:51 | Emergency (ER) | payer MEDICARE, BC ==
[2018-09-23 15:06] VITALS: BP 162/78
--- NOTE | 2018-09-23 15:38 | UC ---
Shortness of Breath HPI - HPI Summary HPI Summary: 82-year-old woman 82-year-old woman comes to clinic today with a chief complaint of shortness of breath. 6 days ago she started with a sore throat and then started with a cough and chest congestion and runny nose. Fever initially. She is a pack-a-day smoker. Since the illness started she has not been able to smoke because she is too short of breath. Rest of breath is also made worse by any type of activity. No complaint of any chest pain no complaint of any edema. - History of Current Complaint Chief Complaint: UCRespiratory Stated Complaint: CHEST CONGESTION Time Seen by Provider: 09/23/18 15:16 Hx Last Menstrual Period: post - Allergy/Home Medications Allergies/Adverse Reactions: Allergies Allergy/AdvReac Type Severity Reaction Status Date / Time morphine Allergy Headache Verified 07/08/18 12:35 Home Medications: Home Medications Areds* 1 tab PO BID 09/23/18 [History] PMH/Surg Hx/FS Hx/Imm Hx Previously Healthy: Yes Cardiovascular History: Cardiac Disease, Hypertension Respiratory History: COPD - Surgical History Surgical History: Yes Surgery Procedure, Year, and Place: 1995 ruptured fallopian tube/ovary removal. 1997-inguinal repair. endartarectomy. cardiac cath w/ stents - Family History Known Family History: Positive: Cardiac Disease - Father at 55 from CAD, Diabetes, Other - Colon cancer. Diverticulosis. - Social History Alcohol Use: None Substance Use Type: None Smoking Status (MU): Heavy Every Day Tobacco Smoker Type: Cigarettes Amount Used/How Often: 1 ppd Have You Smoked in the Last Year: Yes - Immunization History Most Recent Influenza Vaccination: 2010 Most Recent Tetanus Shot: unknown Most Recent Pneumonia Vaccination: 2010 Review of Systems All Other Systems Reviewed And Are Negative: Yes Constitutional: Positive: Fever, Chills Skin: Positive: Negative Eyes: Positive: Negative ENT: Positive: Sore Throat, Nasal Discharge Respiratory: Positive: Shortness Of Breath, Cough, Other - WHEEZING Cardiovascular: Positive: Negative Gastrointestinal: Positive: Negative Motor: Positive: Weakness - GENERALIZED Neurovascular: Positive: Negative Musculoskeletal: Positive: Negative Neurological: Positive: Negative Psychological: Positive: Negative Is Patient Immunocompromised?: No Physical Exam Triage Information Reviewed: Yes Appearance: No Pain Distress, Well-Nourished, Ill-Appearing - MILD/MODERATE SOB Vital Signs: Initial Vital Signs Temp 97.6 F 09/23/18 14:59 Pulse 87 09/23/18 14:59 Resp 18 09/23/18 14:59 BP 162/78 09/23/18 14:59 Pulse Ox 90 09/23/18 14:59 Vital Signs Reviewed: Yes Eye Exam: Normal ENT: Positive: Pharyngeal erythema, Nasal congestion, Nasal drainage, TMs normal Neck exam: Normal Neck: Positive: Supple Respiratory: Positive: Respiratory distress - MILD/MODERATE, Rhonchi, Wheezing Cardiovascular: Positive: RRR Abdomen Description: Positive: Nontender, Soft Bowel Sounds: Positive: Present Musculoskeletal Exam: Normal Musculoskeletal: Positive: Strength Intact, ROM Intact, No Edema Neurological Exam: Normal Neurological: Positive: Alert, Muscle Tone Normal, Fatigued Psychological Exam: Normal Psychological: Positive: Normal Response To Family, Age Appropriate Behavior Skin Exam: Normal Shortness of Breath Dx - Course Course Of Treatment: The cause of the shortness of breath is most likely a respiratory infection on top of being a chronic smoker. Patient's O2 sat varied from 90-94% in our clinic. I did not appreciate any EKG changes from prior EKG. I recommended evaluation and treatment in the emergency department and the patient agreed. She declined ambulance transport and her is giving her a ride to the emergency department. - Differential Dx/Diagnosis Provider Diagnosis: Shortness of breath Discharge - Sign-Out/Discharge Documenting (check all that apply): Patient Departure All imaging exams completed and their final reports reviewed: No Studies - Discharge Plan Condition: Stable Disposition: HOME-RECOMMEND TO ED Patient Education Materials: Shortness of Breath (ED) Referrals: Sharad Muñoz [Primary Care Provider] - Additional Instructions: GO DIRECTLY TO THE EMERGENCY DEPARTMENT FOR FURTHER EVALUATION. - Billing Disposition and Condition Condition: STABLE Disposition: Home-Recommend to ED
== END 2018-09-23 15:30 | disposition home health service (06) ==
LOC: UCEAST 14:51
DX: R06.02 Shortness of breath (principal); I10 Essential (primary) hypertension; J44.9 Chronic obstructive pulmonary disease, unspecified; F17.210 Nicotine dependence, cigarettes, uncomplicated; Z88.5 Allergy status to narcotic agent
CPT/HCPCS: 99212; G0463

== ENCOUNTER 2018-09-23 16:06 | Inpatient (IN) | payer MEDICARE, BC ==
--- OUTSIDE RECORDS SUMMARY | 2018-09-23 16:49 | XMS REPORT | Continuity of Care Document ---
:1935 External Reference #:[id number] Author Name Sharad Muñoz PA Address [address] [place] [address] Care Team Providers Name Role Phone Shereen Dias RN MS [employer] Care Team Information Emt P Unavailable Payers Type Date Identification Numbers Payment Provider Subscriber Effective: 2002 Policy Number: [id number] Medicare Fernanda Fernando Group Name: [employer] [address] PayID: [id number] [facility] [place] [address] Effective: 2011 Policy Number: [id number] [facility] Commercial Fernanda Fernando PayID: [id number] [address] [address] [place] [phone] Advance Directives Description No Information Available Problems Date Description Provider Status Onset: 10/17/2013 Coronary arteriosclerosis Zaira Samson MD Active Onset: 11/29/2010 Benign essential hypertension Abilio Osorio MD Active Onset: 11/29/2010 Mixed hyperlipidemia Abilio Osorio MD Active Onset: 11/29/2010 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, endacterectomy 2009, bypass 2013 Onset: 11/29/2010 Tobacco user Abilio Osorio MD Active Onset: 11/29/2010 Vitamin D deficiency Abilio Osorio MD Active Onset: 11/29/2010 Age related macular degeneration Abilio Osorio MD Active Note: b/l Onset: 06/28/2015 Diverticular disease of colon Zaira Samson MD Active Onset: 07/28/2017 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 Family History Date Family Member(s) Problem(s) Comments Father due to AL () - age 50 Father CHF : (age 80 Mother due to Stroke Years) First Brother AL at 43yo First Brother CABG Social History Type Date Description Comments Sex Unknown Marital Status Occupation Retired Occupation Nurse Tobacco Use Start: Unknown Current Cigarette Smoker 1 Pack Daily 60 yrs Tobacco Use Start: Unknown Heavy tobacco smoker (more than 10 cigarettes/day) Smoking Status Reviewed: 09/01/18 Heavy tobacco smoker (more than 10 cigarettes/day) Allergies, Adverse Reactions, Alerts Date Description Reaction Status Severity Comments 07/03/2005 Morphine Active Medications Medication Date Status Form Strength Qnty SIG Indications Ordering Provider Ibandronate 08/31/ Active Tablets 150mg 3tabs 1 by mouth M81.0 Macadam, Sodium 2018 every month Anette on empty MD Kassy stomach 60min before eating and do not lie down for >60min. Vitamin D3 08/19/ Active Tablets 2000Unit 90tabs 1 by mouth Bry, Super Strength 2018 every day Anette Elena MD Triamcinolone 07/10/ Active Aerosol 55mcg/Act 16.500 1 sprays J01.90 Macadam, Acetonide 2018 gm each Anette nostril MD Kassy twice a day Splint Wrist 04/24/ Active Misc 1units LEFT wrist M25.532 Aranza Dias/LEFT-RIGH 2016 splint any Shereen T/Reversible type C, RN MS covered, [employer] want to immobilize wrist/ thumb on LEFT dx tendenitis Metoprolol 03/26/ Active Tablets 25mg 90tabs Take 1 I10 Macadam, Succinate ER 2016 ER 24HR Tablet Anette Every Night MD Kassy AT Bedtime Areds 2 OTC 01/18/ Active Eye H35.32 Larissa 2016 Vitamins 2 Shereen Daily C, RN MS [employer] Clopidogrel 08/16/ Active Tablets 75mg 90tabs Take 1 I65.23 Macadam, Bisulfate 2013 Tablet Anette Daily MD Kassy I20.1 I25.10 Amlodipine 07/08/2014 Active Tablets 5mg 90tabs take 1 I10 Bry Besylate tablet daily Anette Elena MD Clotrimazole/Bet 12/03/2010 Active Cream 1-0.05% 60g apply two B37.2 Zaira Samson amethasone times A day MD Isha Dipropionate to groin as directed Aspirin 07/04/2009 Active Tablets 81mg 1 po qd I25.10 Anette Londono MD I65.23 Nitrofurantoin Monohyd 04/23 Hx Capsules 100mg 14caps 1 by mouth R31. Bry Macro 11/11 twice a day 9 Anette Elena MD 04/23 06/11 18 Rosuvastatin Calcium 04/0 Hx Tablets 10mg 90tabs 1 by mouth E78. Bry, 12/09 every day 2 Anette Elena MD 05/23 10/11 18 Chantix Starting Month 04/0 Hx Tablets 0.5mg 1month take as packet F17. Gurpreet Londono 11/11 X 11 & directs. 210 Anette 18 - 1 mg X MD Kassy 050 42 11/11 18 Chantix Continuing 04/0 Hx Tablets 1mg 60tabs 1 tablet per F17. Bry , Month Gurpreet 11/11 oral twice 210 Anette 18 - daily MD Kassy 04/23 11/11 18 Prednisone 10/0 Hx Tablets 20mg 10tabs 2 by mouth Bry, 11/11 every morning Anette Elena MD 10/0 04/10 17 Drisdol /2 Hx Capsules [id number] 10caps one tab weekly E55. Larissa, 06/11 nit till gone 9 Shereen Unger, 16 - RN MS [employer] 10/23 04/10 17 Pravastatin Sodium 10/0 Hx Tablets 20mg 30tabs 09/23- 1 every Zaira Samson 05/11 night at MD Isha 15 - bedtime as 10/23 tolerated 04/10 17 Zostavax 10/0 Hx Solution Rec [id number] 1units 0.65cc sc x1 - Larissa, 05/11 nt/0.6 pls check cost Shereen Unger 15 - 5ML with pt first RN MS [employer] 10/23 04/10 17 Fluticasone Propionate Hx Suspension 50mcg/ 1units 1 spray b/l J39. Zaira Samson 10/11 Act nostrils twice 8 MD Isha 15 - a day, then january 30 wean to 1 spray 10/11 everyday, until 15 sx resolution Augmentin Hx Tablets 875-12 20tabs 1 tab by mouth J39. Zaira Samson 10/11 5mg twice a day x 9 MD Isha 15 - 10 days 10/11 15 Azithromycin 01/20 Hx Suspension Rec 200mg/ QS 15 milliliters 461. Bry, 05/11 5ML first day, 7.5 0 Anette 15 - milliliters MD Kassy every day x 4 d 10/11 15 Methylprednisolone 01/20 Hx Tablets 4mg 1pak as dir J44. Bry, (Gurpreet) 05/11 1 Anette 15 - MD Kassy 10/11 15 Proair HFA 01/20 Hx Aerosol 108(90 8.500g 2 p four times J44. Bry, 05/11 Base) m a day as needed 1 Anette 15 - mcg/Ac MD Kassy 12/22 t 06/11 16 Zostavax 08/22 Hx Solution Rec [id number] 1units 0.65cc sc x1 Zaira Samson 05/11 nt/0.6 MD Isha 14 - 5ML 05/11 15 Amlodipine Besylate 06/22 Hx Tablets 5mg 90tabs 1 by mouth 401. Zaira Samson 04/10 every day 1 MD Isha 14 - 06/22 04/10 14 413.1 Amlodipine 07/08/2014 - Hx Tablets 5mg 90tabs 1 by mouth 401.1 Zaira Samson Besylate 07/08/2014 every day MD Isha 413.1 Crestor 08/11/2013 - Hx Tablets 10mg 90tabs 1 po qd 272.2 Trabout, 02/06/2015 MD Abilio Toprol XL 08/11/2013 - Hx Tablets ER 25mg 90tabs 1 by mouth I25.10 Macadam, 03/26/2016 24HR every night Anette Elena MD at bedtime I10 Zetia 07/12/2013 - Hx Tablets 10mg 90tabs 1 po qd 272.2 Trabout, 11/11/2013 MD Abilio Nasonex 03/15/2013 - Hx Suspension 50mcg/ 1units 2 sprays b/l 381.81 Chapin Zaira 07/14/2013 Act nostrils bid X MD Isha 7 days, then may wean to qday prn Pantoprazole 09/07/2012 - Hx Tablets DR 40mg 90tabs 1 po qd 789.06 Tr[facility], Sodium 11/11/2013 MD Abilio Physical 09/25/2011 - Hx dx: bilateral 719.41 Trabout, Therapy 07/07/2012 shoulder [place] Knox/limited rom evaluate and rx biw-tiw to include rom, modalities and strengthening Amlodipine 08/05/2011 - Hx Tablets 5mg 90tabs 1 by mouth 401.1 Zaira Samson Besylate 07/08/2014 every day MD Isha 413.1 Amlodipine 01/07/2011 - Hx Tablets 2.5mg 60tabs Take One 401.1 Trabout, Besylate 08/05/2011 Tablet By MD Abilio Mouth Twice A Day 413.1 Mometasone 12/03/2010 - Hx Solution 0.1% 1units apply 2-3 H92.09 [facility], Furoate 01/19/2016 drops to MD Abilio external ear as directed H61.899 Amlodipine 08/06/2010 - Hx Tablets 5mg 90tabs 1 po qd 401.1 Trabout, Besylate 01/07/2011 MD Abilio 413.1 Nasonex 08/06/2010 - Hx Suspension 50mcg/Act Samples 2 sprays 388.70 Trabout, 12/03/2010 each juve Knoxtrmedina qd Simvastatin 04/09/2010 - Hx Tablets 40mg 30tabs Take 1 272.0 Trabout, 02/03/2012 Tablet By Amanda Knox MD Every Day AT Bedtime 272.2 Cipro 01/26/2010 - Hx Tablets 500mg 14tabs 1 po bid x 7 558.9 Trabout, 04/09/2010 days MD Abilio Vitamin D 10/09/2009 - Hx Capsules 1000Unit 30caps 1 daily for 268.9 Trabout, 11/11/2013 vitamin d MD Abilio deficiency Amlodipine 07/10/2009 - Hx Tablets 2.5mg 180tabs 1 po bid 401.1 Trabout , Besylate 08/06/2010 MD Abilio 413.1 Vitamin D 07/10/2009 - Hx Capsules [id number] 12caps 1 po q 268.9 Trabout, 01/26/2010 week x MD Abilio 12 Lovaza 07/10/2009 - Hx Capsules 1gm 60caps 2 po qd 272.2 Trabout, 10/09/2009 MD Abilio Amlodipine 07/04/2009 - Hx Tablets 5mg 135tabs 1/2 po 401.1 Macadam, Besylate 07/10/2009 qd Anette Elena MD 413.1 Flexeril 06/03/2008 - Hx Tablets 10mg 30tabs 1 PO hs For 724.3 Trabout, 08/24/2008 Muscle MD Abilio Spasms Relafen 06/03/2008 - Hx Tablets 500mg 60tabs 2 PO qd 724.3 Trabout, 08/24/2008 With Food MD Abilio Dexamethasone 06/03/2008 - Hx Tablets 4mg 10tabs 1 po bid 724.3 Trabout , 08/24/2008 with food x MD Abilio 5 days Plavix 08/17/2007 - Hx Tablets 75mg 90tabs take 1 433.10 Zaira Samson 08/16/2014 tablet by MD Isha mouth every day 413.1 Xanax 04/24/2007 - Hx Tablets 1mg 5tabs 1-2 po one Trabout, 02/03/2008 hour before MD Abilio procedure Chantix 04/20/2007 - Hx #1Pack 1units as directed 305.1 Trabout, Starter Pack 02/03/2008 MD Abilio Chantix 04/20/2007 - Hx Tablets 1mg 60tabs 1 po bid with 305.1 Trabout, 02/03/2008 increased MD Abilio fluids. Vytorin 07/03/2005 - Hx Tablets 10-40mg 90tabs 1 po qhs 272.0 Trabout, 04/09/2010 MD Abilio 272.2 Naprosyn 04/10/2005 - Hx Tablets 500mg 30tabs 1 PO bid With Food Trabout, 02/23/2007 prn Pain MD Abilio Efudex CR 04/10/2005 - Hx 5% 25gm Apply To Lesions Trabout, 02/23/2007 bid X 2-4 Weeks Or MD Abilio Until Inflammatory Response Evident Medications Administered in Office Medication Date Status Form Strength Qnty SIG Indications Ordering Provider Depo Medrol 80 Administered Injection Biter, MG 017 HEMA Orourke Depo Medrol 40 Administered Injection Trabout, MG 005 MD Abilio Immunizations CPT Code Status Date Vaccine Lot # [id number] Given 06/02/2018 Influenza Vac, 3 Yrs & Older, Quadrivalent, [id number] Split, [place] Use 59626 Given 07/28/2017 Pneumococcal 23 Immunization Adult Or [id number] Immunosuppressed Patient 66884 Given 06/11/2017 Influenza Vac, 3 Yrs & Older, Quadrivalent, [id number] Split, [place] Use 99133 Given 06/22/2016 Influenza Vac, 3 Yrs & Older, Quadrivalent, Split, Im Use 00185 Given 06/28/2015 Prevnar 13 Pneumococal Conjugate Vaccine [id number] Q2038 Given 07/11/2014 Fluzone Trivalent Immunization Q2038 Given 07/11/2014 Fluzone Trivalent Immunization [id number] Q2038 Given 07/11/2014 Fluzone Trivalent Immunization Q2038 Given 07/14/2013 Fluzone Trivalent Immunization [id number] Q2038 Given 08/05/2011 Fluzone Trivalent Immunization [id number] 36890 Given 08/06/2010 Afluria Or Fluvirin Flu Vac Intramuscular [id number] 39086 Given 07/04/2009 Afluria Or Fluvirin Flu Vac Intramuscular [id number] 83398 Given 08/10/2008 Afluria Or Fluvirin Flu Vac Intramuscular 45532 Given 08/10/2008 Afluria Or Fluvirin Flu Vac Intramuscular [id number] 27055 Given 08/17/2007 Afluria Or Fluvirin Flu Vac Intramuscular [id number] 11242 Given 02/23/2007 Tetanus And Diptheria Toxoids For Adult Use-preservative free 48978 Given 05/01/2006 Pneumococcal 23 Immunization Adult Or Immunosuppressed Patient 55197 Given 05/01/2006 Pneumococcal 23 Immunization Adult Or 1044P 4/07 Immunosuppressed Patient 05590 Given 07/03/2005 Afluria Or Fluvirin Flu Vac Intramuscular [id number] 67395 Given 09/07/2004 Afluria Or Fluvirin Flu Vac Intramuscular 22928 Given 07/26/2003 Afluria Or Fluvirin Flu Vac Intramuscular 69779 Given 09/25/2000 Influenza Virus Vaccine, Whole Virus, Intramuscular Or Jet Inj. Vital Signs Date Vital Result Comment 09/01/2018 11:29am Weight 145.12 lb Heart Rate 76 /min BP Systolic 130 mmHg BP Diastolic 76 mmHg 08/17/2018 8:56am Weight 144.25 lb Heart Rate 87 /min BP Systolic 130 mmHg BP Diastolic 71 mmHg Height 65 inches 5'5" BMI (Body Mass Index) 24.0 kg/m2 Urine Dipstick - Blood 1+ Urine Dipstick - Protein NEGATIVE Urine Dipstick - Glucose NEGATIVE Urine Dipstick - Leukocytes NEGATIVE Left ear audiology results 8FT Right ear audiology results 8FT Right Visual Acuity Distance 20/25 Left Visual Acuity Distance 20/20 Both 20/20 07/10/2018 7:56am Weight 147.50 lb Heart Rate 83 /min BP Systolic 154 mmHg BP Diastolic 98 mmHg Height 65 inches 5'5" BMI (Body Mass Index) 24.5 kg/m2 06/02/2018 11:16am Weight 150.00 lb Heart Rate 79 /min BP Systolic 133 mmHg BP Diastolic 78 mmHg Height 65 inches 5'5" BMI (Body Mass Index) 25.0 kg/m2 05/13/2018 3:49pm Weight 152.12 lb Heart Rate 88 /min BP Systolic 131 mmHg BP Diastolic 74 mmHg Height 65 inches 5'5" BMI (Body Mass Index) 25.3 kg/m2 02/11/2018 8:19am Weight 157.12 lb Heart Rate 74 /min BP Systolic 112 mmHg BP Diastolic 66 mmHg Height 65 inches 5'5" BMI (Body Mass Index) 26.1 kg/m2 12/22/2017 9:13am Weight 154.25 lb Heart Rate 77 /min BP Systolic 122 mmHg BP Diastolic 61 mmHg Height 65 inches 5'5" BMI (Body Mass Index) 25.7 kg/m2 07/28/2017 10:42am Weight 157.25 lb Heart Rate 76 /min BP Systolic 119 mmHg BP Diastolic 69 mmHg Height 65 inches 5'5" BMI (Body Mass Index) 26.2 kg/m2 07/02/2017 12:53pm Weight 155.00 lb Heart Rate 76 /min BP Systolic 132 mmHg BP Diastolic 82 mmHg Height 65 inches 5'5" BMI (Body Mass Index) 25.8 kg/m2 06/11/2017 12:25pm Weight 161.00 lb Heart Rate 70 /min BP Systolic 144 mmHg BP Diastolic 66 mmHg Height 65 inches 5'5" BMI (Body Mass Index) 26.8 kg/m2 03/18/2017 10:21am Weight 161.38 lb Heart Rate 66 /min BP Systolic 118 mmHg BP Diastolic 65 mmHg Height 65 inches 5'5" BMI (Body Mass Index) 26.9 kg/m2 12/12/2016 10:09am Weight 162.12 lb Heart Rate 75 /min BP Systolic 123 mmHg BP Diastolic 67 mmHg Height 65 inches 5'5" BMI (Body Mass Index) 27.0 kg/m2 Urine Dipstick - Blood TRACE Urine Dipstick - Protein NEGATIVE Urine Dipstick - Glucose NEGATIVE Urine Dipstick - Leukocytes NEGATIVE 11/08/2016 8:41am Weight 161.25 lb Heart Rate 70 /min BP Systolic 89 mmHg BP Diastolic 53 mmHg BP Systolic Recheck 116 mmHg BP Diastolic Recheck 64 mmHg Height 65 inches 5'5" BMI (Body Mass Index) 26.8 kg/m2 Urine Dipstick - Blood TRACE Urine Dipstick - Protein TRACE Urine Dipstick - Glucose NEGATIVE Urine Dipstick - Leukocytes NEGATIVE Right Visual Acuity Distance 20/20 Left Visual Acuity Distance 20/20 Both 20/20 06/26/2016 2:51pm Weight 164.12 lb Heart Rate 96 /min BP Systolic 107 mmHg BP Diastolic 65 mmHg Height 65 inches 5'5" BMI (Body Mass Index) 27.3 kg/m2 04/24/2016 1:51pm Weight 167.25 lb Heart Rate 70 /min BP Systolic 122 mmHg BP Diastolic 74 mmHg Height 65 inches 5'5" BMI (Body Mass Index) 27.8 kg/m2 01/19/2016 9:46am Weight 170.00 lb Heart Rate 71 /min BP Systolic 101 mmHg BP Diastolic 70 mmHg Height 65 inches 5'5" BMI (Body Mass Index) 28.3 kg/m2 06/28/2015 10:32am Weight 166.12 lb Heart Rate 72 /min BP Systolic 103 mmHg BP Diastolic 59 mmHg Height 65 inches 5'5" BMI (Body Mass Index) 27.6 kg/m2 Urine Dipstick - Blood NEGATIVE Urine Dipstick - Protein NEGATIVE Urine Dipstick - Glucose NEGATIVE Urine Dipstick - Leukocytes NEGATIVE 02/20/2015 1:50pm Weight 165.00 lb Heart Rate 83 /min BP Systolic 112 mmHg BP Diastolic 71 mmHg Height 65 inches 5'5" BMI (Body Mass Index) 27.5 kg/m2 02/06/2015 2:51pm Weight 167.50 lb Heart Rate 72 /min BP Systolic 109 mmHg BP Diastolic 62 mmHg Height 65 inches 5'5" BMI (Body Mass Index) 27.9 kg/m2 09/08/2014 11:06am Weight 168.00 lb Heart Rate 69 /min BP Systolic 105 mmHg BP Diastolic 64 mmHg Height 65 inches 5'5" BMI (Body Mass Index) 28.0 kg/m2 03/10/2014 11:05am Weight 169.00 lb Heart Rate 72 /min BP Systolic 112 mmHg BP Diastolic 70 mmHg Height 65 inches 5'5" BMI (Body Mass Index) 28.1 kg/m2 11/11/2013 8:47am Weight 167.00 lb Heart Rate 59 /min BP Systolic 109 mmHg BP Diastolic 62 mmHg 08/11/2013 6:05pm Weight 169.00 lb Heart Rate 78 /min BP Systolic 131 mmHg BP Diastolic 71 mmHg 07/14/2013 3:10pm Weight 170.00 lb Heart Rate 79 /min BP Systolic 108 mmHg BP Diastolic 67 mmHg 05/26/2013 4:20pm Weight 172.00 lb Heart Rate 75 /min BP Systolic 114 mmHg BP Diastolic 64 mmHg 03/15/2013 1:33pm Body Temperature 98.0 F Weight 176.00 lb Heart Rate 76 /min BP Systolic 136 mmHg BP Diastolic 66 mmHg 09/07/2012 1:21pm Weight 175.00 lb Heart Rate 80 /min BP Systolic 126 mmHg BP Diastolic 62 mmHg Height 65 inches 5'5" BMI (Body Mass Index) 29.1 kg/m2 07/07/2012 2:21pm Body Temperature 97.2 F Weight 175.00 lb Heart Rate 85 /min BP Systolic 149 mmHg BP Diastolic 78 mmHg 04/08/2012 3:36pm Weight 179.00 lb Heart Rate 81 /min BP Systolic 140 mmHg BP Diastolic 75 mmHg 02/03/2012 11:04am Weight 179.00 lb Heart Rate 80 /min BP Systolic 131 mmHg BP Diastolic 71 mmHg 10/25/2011 10:45am Weight 181.00 lb Heart Rate 80 /min BP Systolic 128 mmHg BP Diastolic 73 mmHg 09/25/2011 2:04pm Weight 181.00 lb Heart Rate 76 /min BP Systolic 144 mmHg BP Diastolic 73 mmHg 08/05/2011 9:55am Weight 180.00 lb Heart Rate 76 /min BP Systolic 124 mmHg BP Diastolic 73 mmHg 04/03/2011 3:26pm Weight 185.00 lb Heart Rate 76 /min BP Systolic 118 mmHg BP Diastolic 73 mmHg 12/03/2010 9:40am Weight 182.00 lb Heart Rate 73 /min BP Systolic 124 mmHg BP Diastolic 79 mmHg Height 65 inches 5'5" BMI (Body Mass Index) 30.3 kg/m2 08/06/2010 12:27pm Weight 180.00 lb Heart Rate 80 /min BP Systolic 106 mmHg BP Diastolic 61 mmHg 04/09/2010 8:55am Weight 181.00 lb Heart Rate 58 /min Irregular BP Systolic 110 mmHg BP Diastolic 62 mmHg 01/26/2010 8:40am Body Temperature 97.1 F Weight 176.00 lb Heart Rate 76 /min BP Systolic 126 mmHg BP Diastolic 72 mmHg 10/09/2009 10:42am Weight 181.00 lb Heart Rate 75 /min BP Systolic 119 mmHg BP Diastolic 68 mmHg 08/21/2009 12:24pm Body Temperature 97.4 F Weight 177.00 lb Heart Rate 83 /min BP Systolic 112 mmHg BP Diastolic 67 mmHg Urine Dipstick - Blood 2+ Urine Dipstick - Protein NEGATIVE Urine Dipstick - Glucose NEGATIVE 07/10/2009 11:22am Weight 183.00 lb Heart Rate 72 /min BP Systolic 105 mmHg BP Diastolic 69 mmHg 07/04/2009 2:49pm Weight 187.00 lb Heart Rate 70 /min BP Systolic 124 mmHg BP Diastolic 70 mmHg 02/06/2009 1:05pm Weight 186.00 lb Heart Rate 86 /min BP Systolic 139 mmHg BP Diastolic 69 mmHg 10/12/2008 2:06pm Weight 194.00 lb Heart Rate 87 /min BP Systolic 133 mmHg BP Diastolic 77 mmHg 08/24/2008 2:53pm Weight 195.00 lb Heart Rate 78 /min BP Systolic 146 mmHg BP Diastolic 75 mmHg 06/03/2008 12:41pm Weight 193.00 lb Heart Rate 75 /min BP Systolic 122 mmHg BP Diastolic 81 mmHg 10/09/2007 3:16pm Weight 190.00 lb Heart Rate 86 /min BP Systolic 120 mmHg BP Diastolic 71 mmHg 08/24/2007 11:55am Weight 191.00 lb With Boots Heart Rate 83 /min BP Systolic 107 mmHg BP Diastolic 69 mmHg 08/17/2007 8:22am Weight 188.00 lb Heart Rate 85 /min BP Systolic 123 mmHg BP Diastolic 74 mmHg 04/20/2007 10:48am Weight 187.00 lb Heart Rate 72 /min BP Systolic 144 mmHg BP Diastolic 80 mmHg 02/23/2007 1:03pm Weight 188.00 lb Heart Rate 72 /min BP Systolic 130 mmHg BP Diastolic 72 mmHg 07/03/2005 1:33pm Weight 191.00 lb Heart Rate 77 /min BP Systolic 126 mmHg BP Diastolic 76 mmHg Urine Dipstick - Blood NEGATIVE Urine Dipstick - Protein NEGATIVE Urine Dipstick - Glucose NEGATIVE 04/10/2005 4:19pm Weight 193.00 lb Heart Rate 86 /min BP Systolic 125 mmHg BP Diastolic 76 mmHg Results Test Date Facility Test Result H/L Range Note CBC with Auto Diff-fcmg 08/17/2018 [facility] WBC 7.8 K/uL 4.1-11.0 RBC 5.17 M/uL 4.00-5.40 Hemoglobin 16.1 gm/dL High 12.0-16.0 Hematocrit 48.1 % High 36.0-47.0 MCV 93.1 fL 80.0-97.0 MCH 31.2 pg 27.0-32.0 MCHC 33.5 g/dL 32.0-36.0 RDW 14.8 % High 11.5-14.5 PLT Count 193 K/ul 140-400 MPV 8.9 FL 7.1-10.7 Neutrophil 71.5 % 35.0-75.0 Lymphocyte 18.1 % 16.0-52.0 Monocyte 9.3 % 2.0-10.0 Eosinophil 0.6 % 0.0-5.0 Basophil 0.5 % 0.0-4.0 Abs Neutrophils 5.6 K/uL 2.1-8.0 Abs Lymphocytes 1.4 K/uL 0.8-5.5 Abs Monocytes 0.7 K/uL 0.1-1.0 Abs Eosinophils 0.0 K/uL 0.0-0.5 Abs Basophils 0.0 K/uL 0.0-0.3 Comprehensive Met Panel-[facility] 08/17/2018 [facility] Sodium 146 mmol/L 135- 146 1 Potassium 4.4 mmol/L 3.5-5.2 Chloride# 102 mmol/L 97-110 2 Carbon Dioxide 31 mmol/L 24-34 Glucose 95 mg/dL 70-105 BUN 18 mg/dL 6-26 Creatinine 0.6 mg/dL 0.5-1.4 Calcium 10.0 mg/dL 8.5-10.2 Total Protein 6.5 g/dL 6.0-8.0 Albumin 4.8 g/dL 3.6-4.9 Globulin 1.7 g/dL Low 2.0-3.5 A/G Ratio 2.8 Ratio High 1.0-2.2 Total Bilirubin 0.7 mg/dL 0.1-1.3 Alkaline Phosphatase 92 U/L 24-140 Alt 8 U/L 3-42 Ast 12 U/L 8-42 Anitha Egfr >60 >60 3 Non Anitha Egfr >60 >60 4 Anion Gap 13 mmol/L 5-15 5 Laboratory test finding 08/17/2018 [facility] Magnesium 2.3 mg/dL 1.5-2.7 TSH 2.28 uIU/mL 0.35-4.94 Vitamin D 25 Hydroxy 23 ng/mL Low 30-100 6 Lipid 08/17/2018 [facility] Cholesterol 262 mg/dL High 50-199 Triglycerides 222 mg/dL High 30-200 HDL 38 mg/dL 35-85 7 Chol/ HDL Ratio 6.9 ratio High 3.7-5.6 VLDL 44 mg/dL High 2-29 LDL (Calc) 180 mg/dL High 20-99 8 CBC with Auto Diff-[facility]cmg 07/10/2018 [facility] WBC 6.4 K/uL 4.1-11.0 RBC 5.10 M/uL 4.00-5.40 Hemoglobin 16.3 gm/dL High 12.0-16.0 Hematocrit 46.9 % 36.0-47.0 MCV 91.9 fL 80.0-97.0 MCH 32.0 pg 27.0-32.0 MCHC 34.8 g/dL 32.0-36.0 RDW 14.9 % High 11.5-14.5 PLT Count 213 K/ul 140-400 MPV 8.9 FL 7.1-10.7 Neutrophil 70.6 % 35.0-75.0 Lymphocyte 20.4 % 16.0-52.0 Monocyte 7.2 % 2.0-10.0 Eosinophil 1.3 % 0.0-5.0 Basophil 0.5 % 0.0-4.0 Abs Neutrophils 4.5 K/uL 2.1-8.0 Abs Lymphocytes 1.3 K/uL 0.8-5.5 Abs Monocytes 0.5 K/uL 0.1-1.0 Abs Eosinophils 0.1 K/uL 0.0-0.5 Abs Basophils 0.0 K/uL 0.0-0.3 Comprehensive Met Panel-[facility] 07/10/2018 [facility] Sodium 144 mmol/L 135- 146 9 Potassium 3.9 mmol/L 3.5-5.2 Chloride# 104 mmol/L 97-110 10 Carbon Dioxide 28 mmol/L 24-34 Glucose 93 mg/dL 70-105 BUN 16 mg/dL 6-26 Creatinine 0.7 mg/dL 0.5-1.4 Calcium 9.7 mg/dL 8.5-10.2 Total Protein 6.7 g/dL 6.0-8.0 Albumin 4.6 g/dL 3.6-4.9 Globulin 2.1 g/dL 2.0-3.5 A/G Ratio 2.2 Ratio 1.0-2.2 Total Bilirubin 0.5 mg/dL 0.1-1.3 Alkaline Phosphatase 95 U/L 24-140 Alt 10 U/L 3-42 Ast 13 U/L 8-42 Anitha Egfr >60 >60 11 Non Anitha Egfr >60 >60 12 Anion Gap 12 mmol/L 5-15 13 Lipid 07/10/2018 [facility] Cholesterol 243 mg/dL High 50-199 Triglycerides 217 mg/dL High 30-200 HDL 37 mg/dL 35-85 14 Chol/ HDL Ratio 6.5 ratio High 3.7-5.6 VLDL 43 mg/dL High 2-29 LDL (Calc) 162 mg/dL High 20-99 15 Laboratory test finding 07/10/2018 [facility] Magnesium 2.3 mg/dL 1.5-2.7 TSH 4.08 uIU/mL 0.35-4.94 Laboratory test 05/13/2018 [facility] Cytology Fluid SEE NOTE 16 finding Specimen Laboratory test 05/13/2018 [facility] Urine Culture Microbiology res 17 finding <SEE NOTE> Comprehensive Met 12/22/2017 [facility] Sodium 143 mmol/L 135-146 18 Panel-[facility] Potassium 4.2 mmol/L 3.5-5.2 Chloride# 105 mmol/L 97-110 19 Carbon Dioxide 26 mmol/L 24-34 Glucose 78 mg/dL 70-105 BUN 18 mg/dL 6-26 Creatinine 0.6 mg/dL 0.5-1.4 Calcium 9.6 mg/dL 8.5-10.2 Total Protein 6.1 g/dL 6.0-8.0 Albumin 4.6 g/dL 3.6-4.9 Globulin 1.5 g/dL Low 2.0-3.5 A/G Ratio 3.1 Ratio High 1.0-2.2 Total Bilirubin 0.4 mg/dL 0.1-1.3 Alkaline Phosphatase 79 U/L 24-140 Alt 16 U/L 3-42 Ast 14 U/L 8-42 Anitha Egfr >60 >60 20 Non Anitha Egfr >60 >60 21 Anion Gap 12 mmol/L 5-15 22 Lipid 12/22/2017 [facility] Cholesterol 254 mg/dL High 50-199 Triglycerides 261 mg/dL High 30-200 HDL 44 mg/dL 35-85 23 Chol/ HDL Ratio 5.8 ratio High 3.7-5.6 VLDL 52 mg/dL High 2-29 LDL (Calc) 158 mg/dL High 20-99 24 Laboratory test finding 12/22/2017 [facility] Magnesium 2.2 mg/dL 1.5-2.7 CRP-High 1.60 mg/L 0.00-9.90 25 CBC With Auto Diff 12/12/2016 [facility] WBC 6.4 K/uL 4.1-11.0 RBC 4.96 M/uL 4.00-5.40 Hemoglobin 16.1 gm/dL High 12.0-16.0 Hematocrit 47.3 % High 36.0-47.0 MCV 95.3 fL 80.0-97.0 MCH 32.5 pg High 27.0-32.0 MCHC 34.1 g/dL 32.0-36.0 RDW 14.0 % 11.5-14.5 PLT Count 177 K/ul 140-400 Neutrophil 62.5 % 35.0-75.0 Lymphocyte 28.1 % 16.0-52.0 Monocyte 8.5 % 2.0-10.0 Eosinophil 0.6 % 0.0-5.0 Basophil 0.3 % 0.0-4.0 Abs Neutrophils 4.0 K/uL 2.1-8.0 Abs Lymphocytes 1.8 K/uL 0.8-5.5 Abs Monocytes 0.5 K/uL 0.1-1.0 Abs Eosinophils 0.0 K/uL 0.0-0.5 Abs Basophils 0.0 K/uL 0.0-0.3 Comprehensive Metabolic (CMP) 12/12/2016 [place] Sodium 145 mmol/L 135- 146 26 Potassium 4.8 mmol/L 3.5-5.2 Chloride# 104 mmol/L 97-110 27 Carbon Dioxide 33 mmol/L 24-34 Glucose 79 mg/dL 70-105 BUN 15 mg/dL 6-26 Creatinine 0.6 mg/dL 0.5-1.4 Calcium 9.8 mg/dL 8.5-10.2 Total Protein 6.4 g/dL 6.0-8.0 Albumin 4.5 g/dL 3.6-4.9 Globulin 1.9 g/dL Low 2.0-3.5 A/G Ratio 2.4 Ratio High 1.0-2.2 Total Bilirubin 0.4 mg/dL 0.1-1.3 Alkaline Phosphatase 86 U/L 24-140 Alt 11 U/L 3-42 Ast 15 U/L 8-42 Anitha Egfr >60 >60 28 Non Anitha Egfr >60 >60 29 Anion Gap 13 mmol/L 7-16 30 Lipid 11/08/2016 [place] Cholesterol 229 mg/dL High 50-199 Triglycerides 293 mg/dL High 30-200 HDL 33 mg/dL Low 35-85 31 Chol/ HDL Ratio 6.9 ratio High 3.7-5.6 VLDL 59 mg/dL High 2-29 LDL (Calc) 137 mg/dL High 20-99 32 Laboratory test finding 11/08/2016 [facility] Magnesium 2.3 mg/dL 1.5-2.7 Vit D,25 Hydroxy 18 ng/mL Low 31-100 CBC With Auto Diff 11/08/2016 [facility] WBC 8.0 K/uL 4.1-11.0 RBC 5.03 M/uL 4.00-5.40 Hemoglobin 16.4 gm/dL High 12.0-16.0 Hematocrit 47.8 % High 36.0-47.0 MCV 95.0 fL 80.0-97.0 MCH 32.7 pg High 27.0-32.0 MCHC 34.4 g/dL 32.0-36.0 RDW 13.8 % 11.5-14.5 PLT Count 145 K/ul 140-400 Neutrophil 68.9 % 35.0-75.0 Lymphocyte 22.2 % 16.0-52.0 Monocyte 7.7 % 2.0-10.0 Eosinophil 0.8 % 0.0-5.0 Basophil 0.4 % 0.0-4.0 Abs Neutrophils 5.5 K/uL 2.1-8.0 Abs Lymphocytes 1.8 K/uL 0.8-5.5 Abs Monocytes 0.6 K/uL 0.1-1.0 Abs Eosinophils 0.1 K/uL 0.0-0.5 Abs Basophils 0.0 K/uL 0.0-0.3 Comprehensive Metabolic (CMP) 11/08/2016 [facility] Sodium 140 mmol/L 134- 142 Potassium 5.2 mmol/L 3.5-5.2 Chloride 105 mmol/L 97-109 Carbon Dioxide 29 mmol/L 24-34 Glucose 89 mg/dL 70-105 BUN 15 mg/dL 6-26 Creatinine 0.6 mg/dL 0.5-1.4 Calcium 9.4 mg/dL 8.5-10.2 Total Protein 6.5 g/dL 6.0-8.0 Albumin 4.3 g/dL 3.6-4.9 Globulin 2.2 g/dL 2.0-3.5 A/G Ratio 2.0 Ratio 1.0-2.2 Total Bilirubin 0.5 mg/dL 0.1-1.3 Alkaline Phosphatase 72 U/L 24-140 Alt 9 U/L 3-42 Ast 12 U/L 8-42 Anion Gap 11 mmol/L 6-14 Anitha Egfr >60 >60 33 Non Anitha Egfr >60 >60 34 Laboratory test finding 12/26/2015 [facility] Vit D,25 Hydroxy 24 ng/mL Low 31-100 35 Magnesium 2.2 mg/dL 1.5-2.7 Lipid 12/26/2015 [facility] Cholesterol 220 mg/dL High 50-199 Triglycerides 321 mg/dL High 30-200 HDL 37 mg/dL 35-85 36 Chol/ HDL Ratio 5.9 ratio High 3.7-5.6 VLDL 64 mg/dL High 2-29 LDL (Calc) 119 mg/dL High 20-99 37 Comprehensive Metabolic (CMP) 12/26/2015 [facility] Sodium 141 mmol/L 134- 142 Potassium 5.0 mmol/L 3.5-5.2 Chloride 105 mmol/L 97-109 Carbon Dioxide 31 mmol/L 24-34 Glucose 90 mg/dL 70-105 BUN 15 mg/dL 6-26 Creatinine 0.7 mg/dL 0.5-1.4 Calcium 9.3 mg/dL 8.5-10.2 Total Protein 6.4 g/dL 6.0-8.0 Albumin 4.1 g/dL 3.6-4.9 Globulin 2.3 g/dL 2.0-3.5 A/G Ratio 1.8 Ratio 1.0-2.2 Total Bilirubin 0.5 mg/dL 0.1-1.3 Alkaline Phosphatase 72 U/L 24-140 Alt 13 U/L 3-42 Ast 14 U/L 8-42 Anion Gap 10 mmol/L 6-14 Anitha Egfr >60 >60 38 Non Anitha Egfr >60 >60 39 CBC With Auto Diff 12/26/2015 [facility] WBC 6.0 K/uL 4.1-11.0 RBC 4.93 M/uL 4.00-5.40 Hemoglobin 15.7 gm/dL 12.0-16.0 Hematocrit 47.4 % High 36.0-47.0 MCV 96.0 fL 80.0-97.0 MCH 31.8 pg 27.0-32.0 MCHC 33.1 g/dL 32.0-36.0 RDW 13.9 % 11.5-14.5 PLT Count 164 K/ul 140-400 Neutrophil 61.2 % 35.0-75.0 Lymphocyte 28.1 % 16.0-52.0 Monocyte 9.3 % 2.0-10.0 Eosinophil 0.9 % 0.0-5.0 Basophil 0.5 % 0.0-4.0 Abs Neutrophils 3.7 K/uL 2.1-8.0 Abs Lymphocytes 1.7 K/uL 0.8-5.5 Abs Monocytes 0.6 K/uL 0.1-1.0 Abs Eosinophils 0.1 K/uL 0.0-0.5 Abs Basophils 0.0 K/uL 0.0-0.3 Laboratory test finding 06/28/2015 [facility] Vit D,25 Hydroxy 34 ng/mL 31- 100 Vitamin B12 293 pg/mL 180-914 Magnesium 2.1 mg/dL 1.5-2.7 TSH 2.47 uIU/mL 0.35-4.94 Lipid 06/28/2015 [facility] Cholesterol 240 mg/dL High 50-199 Triglycerides 381 mg/dL High 30-200 HDL 32 mg/dL Low 35-85 40 Chol/ HDL Ratio 7.5 ratio High 3.7-5.6 VLDL 76 mg/dL High 2-29 LDL (Calc) 132 mg/dL High 20-99 41 Comprehensive Metabolic (CMP) 06/28/2015 [facility] Sodium 139 mmol/L 134- 142 Potassium 4.6 mmol/L 3.5-5.2 Chloride 103 mmol/L 97-109 Carbon Dioxide 27 mmol/L 24-34 Glucose 83 mg/dL 70-105 BUN 15 mg/dL 6-26 Creatinine 0.6 mg/dL 0.5-1.4 Calcium 9.4 mg/dL 8.5-10.2 Total Protein 6.6 g/dL 6.0-8.0 Albumin 4.4 g/dL 3.6-4.9 Globulin 2.2 g/dL 2.0-3.5 A/G Ratio 2.0 Ratio 1.0-2.2 Total Bilirubin 0.4 mg/dL 0.1-1.3 Alkaline Phosphatase 75 U/L 24-140 Alt 10 U/L 3-42 Ast 14 U/L 8-42 Anion Gap 14 mmol/L 6-14 Anitha Egfr >60 >60 42 Non Anitha Egfr >60 >60 43 CBC With Auto Diff 06/28/2015 [facility] WBC 7.4 K/uL 4.1-11.0 RBC 5.03 M/uL 4.00-5.40 Hemoglobin 15.8 gm/dL 12.0-16.0 Hematocrit 48.1 % High 36.0-47.0 MCV 95.7 fL 80.0-97.0 MCH 31.4 pg 27.0-32.0 MCHC 32.8 g/dL 32.0-36.0 RDW 14.4 % 11.5-14.5 PLT Count 143 K/ul 140-400 Neutrophil 65.3 % 35.0-75.0 Lymphocyte 25.8 % 16.0-52.0 Monocyte 7.9 % 2.0-10.0 Eosinophil 0.6 % 0.0-5.0 Basophil 0.4 % 0.0-4.0 Abs Neutrophils 4.8 K/uL 2.1-8.0 Abs Lymphocytes 1.9 K/uL 0.8-5.5 Abmon 0.6 K/uL 0.1-1.0 Abs Eosinophils 0.0 K/uL 0.0-0.5 Abs Basophils 0.0 K/uL 0.0-0.3 CBC With Auto Diff 07/11/2014 [facility] WBC 7.4 K/uL 4.1-11.0 44 RBC 4.88 M/uL 4.00-5.40 Hemoglobin 15.8 gm/dL 12.0-16.0 Hematocrit 46.8 % 36.0-47.0 MCV 95.9 fL 80.0-97.0 MCH 32.4 pg High 27.0-32.0 MCHC 33.8 g/dL 32.0-36.0 RDW 14.0 % 11.5-14.5 PLT Count 153 K/ul 140-400 Neutrophil 63.0 % 35.0-75.0 Lymphocyte 26.5 % 16.0-52.0 Monocyte 8.7 % 2.0-10.0 Eosinophil 1.3 % 0.0-5.0 Basophil 0.5 % 0.0-4.0 Abs Neutrophils 4.7 K/uL 2.1-8.0 Abs Lymphocytes 2.0 K/uL 0.8-5.5 Abmon 0.6 K/uL 0.1-1.0 Abs Eosinophils 0.1 K/uL 0.0-0.5 Abs Basophils 0.0 K/uL 0.0-0.3 Comprehensive Metabolic (CMP) 07/11/2014 [facility] Sodium 143 mmol/L High 134-142 Potassium 5.0 mmol/L 3.5-5.2 Chloride 106 mmol/L 97-109 Carbon Dioxide 32 mmol/L 24-34 Glucose 82 mg/dL 70-105 BUN 13 mg/dL 6-26 Creatinine 0.6 mg/dL 0.5-1.4 Calcium 9.5 mg/dL 8.5-10.2 Total Protein 6.3 g/dL 6.0-8.0 Albumin 4.4 g/dL 3.6-4.9 Globulin 1.9 g/dL Low 2.0-3.5 A/G Ratio 2.3 Ratio High 1.0-2.2 Total Bilirubin 0.5 mg/dL 0.1-1.3 Alkaline Phosphatase 67 U/L 24-140 Alt 12 U/L 3-42 Ast 13 U/L 8-42 Anion Gap 10 mmol/L 6-14 Anitha Egfr >60 >60 45 Non Anitha Egfr >60 >60 46 Lipid 07/11/2014 [facility] Cholesterol 118 mg/dL 50-199 Triglycerides 183 mg/dL 30-200 HDL 34 mg/dL Low 35-85 47 Chol/ HDL Ratio 3.5 ratio Low 3.7-5.6 VLDL 37 mg/dL High 2-29 LDL (Calc) 47 mg/dL 20-99 48 Laboratory test finding 07/11/2014 [facility] Vit D,25 Hydroxy 36 ng/mL 31- 100 Magnesium 2.2 mg/dL 1.5-2.7 CBC With Auto Diff 12/16/2013 [facility] WBC 6.7 K/uL 4.1-11.0 RBC 4.81 M/uL 4.00-5.40 Hemoglobin 15.6 gm/dL 12.0-16.0 Hematocrit 45.7 % 36.0-47.0 MCV 95.0 fL 80.0-97.0 MCH 32.4 pg High 27.0-32.0 MCHC 34.1 g/dL 32.0-36.0 RDW 14.0 % 11.5-14.5 PLT Count 141 K/ul 140-400 Neutrophil 64.0 % 35.0-75.0 Lymphocyte 26.2 % 16.0-52.0 Monocyte 8.3 % 2.0-10.0 Eosinophil 0.8 % 0.0-5.0 Basophil 0.7 % 0.0-4.0 Abs Neutrophils 4.3 K/uL 2.1-8.0 Abs Lymphocytes 1.7 K/uL 0.8-5.5 Abmon 0.6 K/uL 0.1-1.0 Abs Eosinophils 0.1 K/uL 0.0-0.5 Abs Basophils 0.0 K/uL 0.0-0.3 Comprehensive Metabolic (CMP) 12/16/2013 [facility] Sodium 141 mmol/L 134- 142 Potassium 4.6 Specimen Sli <SEE NOTE> mmol/L 3.5-5.2 49 Chloride 108 mmol/L 97-109 Carbon Dioxide 23 Testing perfo <SEE NOTE> mmol/L Low 24-34 50 Glucose 75 mg/dL 70-105 BUN 16 mg/dL 6-26 Creatinine 0.6 mg/dL 0.5-1.4 Calcium 9.4 mg/dL 8.5-10.2 Total Protein 6.5 g/dL 6.0-8.0 Albumin 4.4 g/dL 3.6-4.9 Globulin 2.1 g/dL 2.0-3.5 A/G Ratio 2.1 Ratio 1.0-2.2 Total Bilirubin 0.3 mg/dL 0.1-1.3 Alkaline Phosphatase 62 U/L 24-140 Alt 14 U/L 3-42 Ast 15 U/L 8-42 Anion Gap 15 mmol/L High 6-14 Anitha Egfr >60 >60 51 Non Anitha Egfr >60 >60 52 Lipid 12/16/2013 [facility] Cholesterol 139 mg/dL 50-199 Triglycerides 196 mg/dL 30-200 HDL 34 mg/dL Low 35-85 53 Chol/ HDL Ratio 4.1 ratio 3.7-5.6 VLDL 39 mg/dL High 2-29 LDL (Calc) 66 mg/dL 20-99 54 Laboratory test finding 12/16/2013 [facility] Vitamin B12 290 pg/mL 180- 914 TSH 2.91 uIU/mL 0.34-5.60 Vit D,25 Hydroxy 28 ng/mL Low 31-100 Hemoglobin A1c 5.3 % 4.1-5.9 CBC With Auto Diff 07/07/2012 [facility] WBC 6.4 K/uL 4.1-11.0 55 RBC 4.76 M/uL 4.00-5.40 Hemoglobin 15.3 gm/dL 12.0-16.0 Hematocrit 44.7 % 36.0-47.0 MCV 93.8 fL 80.0-97.0 MCH 32.2 pg High 27.0-32.0 MCHC 34.3 g/dL 32.0-36.0 RDW 14.3 % 11.5-14.5 PLT Count 160 K/ul 140-400 Neutrophil 60.1 % 35.0-75.0 Lymphocyte 28.9 % 16.0-52.0 Monocyte 10.2 % High 2.0-10.0 Eosinophil 0.6 % 0.0-5.0 Basophil 0.2 % 0.0-4.0 Abs Neutrophils 3.8 K/uL 2.1-8.0 Abs Lymphocytes 1.8 K/uL 0.8-5.5 Abs Monocytes 0.7 K/uL 0.1-1.0 Abs Eosinophils 0.0 K/uL 0.0-0.5 Abs Basophils 0.0 K/uL 0.0-0.3 Comprehensive Metabolic (CMP) 07/07/2012 [facility] Sodium 140 mmol/L 134- 142 Potassium 4.0 mmol/L 3.5-5.2 Chloride 105 mmol/L 97-109 Carbon Dioxide 25 mmol/L 24-34 Glucose 116 mg/dL High 70-105 BUN 12 mg/dL 6-26 Creatinine 0.6 mg/dL 0.5-1.4 Calcium 9.8 mg/dL 8.5-10.2 Total Protein 6.1 g/dL 6.0-8.0 Albumin 4.5 g/dL 3.6-4.9 Globulin 1.6 g/dL Low 2.0-3.5 A/G Ratio 2.8 Ratio High 1.0-2.2 Total Bilirubin 0.3 mg/dL 0.1-1.3 Alkaline Phosphatase 77 U/L 24-140 Alt 9 U/L 3-42 Ast 10 U/L 8-42 Anion Gap 14 mmol/L 6-14 Anitha Egfr >60 >60 56 Non Anitha Egfr >60 >60 57 Laboratory test finding 07/07/2012 [facility] Lipase 39 U/L 11-82 Comprehensive Metabolic (CMP) 02/03/2012 [facility] Sodium 140 mmol/L 134- 142 58 Potassium 4.6 mmol/L 3.5-5.2 Chloride 103 mmol/L 97-109 Carbon Dioxide 28 mmol/L 24-34 Glucose 88 mg/dL 70-105 BUN 14 mg/dL 6-26 Creatinine 0.6 mg/dL 0.5-1.4 Calcium 9.7 mg/dL 8.5-10.2 BUN/CR 25 ratio High 12-20 Total Protein 6.8 g/dL 6.0-8.0 Albumin 4.6 g/dL 3.6-4.9 Globulin 2.2 g/dL 2.0-3.5 A/G Ratio 2.1 Ratio 1.0-2.2 Total Bilirubin 0.4 mg/dL 0.1-1.3 Alkaline Phosphatase 79 U/L 24-140 Alt 13 U/L 3-42 Ast 13 U/L 8-42 Anion Gap 14 mmol/L 6-14 Anitha Egfr >60 >60 59 Non Anitha Egfr >60 >60 60 Lipid 02/03/2012 [facility] Cholesterol 258 mg/dL High 50-199 Triglycerides 405 mg/dL High 30-200 HDL 37 mg/dL 35-85 61 Chol/ HDL Ratio 7.0 ratio High 3.7-5.6 Laboratory test finding 02/03/2012 [facility] TSH 3.54 uIU/mL 0.34-5.60 Z#Hemoglobin A1c With Est 02/03/2012 [facility] Hemoglobin A1c 5.9 % 4.1- 5.[address] Glucose 123 71-140 Laboratory test finding 02/03/2012 [facility] CPK 41 U/L 12-199 Direct LDL 152 mg/dL High 20-129 62 Laboratory test 02/03/2012 [facility] Lyme Igm/Igg AB NEGATIVE (Neg) 63, 64 finding CBC With Auto Diff 09/25/2011 [facility] WBC 7.4 K/uL 4.1-11.0 RBC 4.66 M/uL 4.00-5.40 Hemoglobin 15.5 gm/dL 12.0-16.0 Hematocrit 43.5 % 36.0-47.0 MCV 93.4 fL 80.0-97.0 MCH 33.4 pg High 27.0-32.0 MCHC 35.7 g/dL 32.0-36.0 RDW 13.8 % 11.5-14.5 PLT Count 160 K/ul 140-400 Neutrophil 67.1 % 35.0-75.0 Lymphocyte 23.5 % 16.0-52.0 Monocyte 8.1 % 2.0-10.0 Eosinophil 0.8 % 0.0-5.0 Basophil 0.5 % 0.0-4.0 Abs Neutrophils 5.0 K/uL 2.1-8.0 Abs Lymphocytes 1.7 K/uL 0.8-5.5 Abs Monocytes 0.6 K/uL 0.1-1.0 Abs Eosinophils 0.1 K/uL 0.0-0.5 Abs Basophils 0.0 K/uL 0.0-0.3 Laboratory test finding 09/25/2011 [facility] Esr 6 mm/hr 0-20 CRP (C-Reactive) 0.61 mg/dL 0.00-0.75 Comprehensive Metabolic (CMP) 08/05/2011 [facility] Sodium 144 mmol/L 135- 144 65 Potassium 4.2 mmol/L 3.6-5.2 Chloride 108 mmol/L 97-110 Carbon Dioxide 25 mmol/L 23-32 Glucose 87 mg/dL 70-105 BUN 10 mg/dL 6-22 Creatinine 0.6 mg/dL 0.5-1.3 Calcium 9.8 mg/dL 8.6-10.2 BUN/CR 17 ratio 12-20 Total Protein 6.6 g/dL 5.8-7.8 Albumin 4.4 g/dL 3.5-4.8 Globulin 2.2 g/dL 2.0-3.5 A/G Ratio 2.0 Ratio 1.0-2.2 Total Bilirubin 0.5 mg/dL 0.3-1.2 Alkaline Phosphatase 80 U/L 24-140 Alt 17 U/L 5-45 Ast 19 U/L 12-40 Anion Gap 15 mmol/L 8-16 Non Anitha Egfr >60 >60 66 Anitha Egfr >60 >60 67 Lipid 08/05/2011 [facility] Cholesterol 168 mg/dL 50-199 Triglycerides 246 mg/dL High 10-150 HDL 40 mg/dL 35-85 68 Chol/ HDL Ratio 4.2 ratio 3.7-5.6 VLDL 49 mg/dL High 2-29 LDL (Calc) 79 mg/dL 20-129 69 Z#Hemoglobin A1c With Est Gluc 08/05/2011 [facility] Hemoglobin A1c 6.1 % High 4.1-5.[address] Glucose 128 71-140 Laboratory test finding 08/05/2011 [facility] Vit D,25 Hydroxy 22 ng/mL Low 31-100 TSH 3.33 uIU/mL 0.34-5.60 CBC With Auto Diff 08/05/2011 [facility] WBC 8.2 K/uL 4.1-11.0 RBC 4.84 M/uL 4.00-5.40 Hemoglobin 16.3 gm/dL High 12.0-16.0 Hematocrit 46.1 % 36.0-47.0 MCV 95.2 fL 80.0-97.0 MCH 33.7 pg High 27.0-32.0 MCHC 35.4 g/dL 32.0-36.0 RDW 13.7 % 11.5-14.5 PLT Count 163 K/ul 140-400 Neutrophil 66.0 % 35.0-75.0 Lymphocyte 24.9 % 16.0-52.0 Monocyte 7.5 % 2.0-10.0 Eosinophil 1.3 % 0.0-5.0 Basophil 0.3 % 0.0-4.0 Abs Neutrophils 5.4 K/uL 2.1-8.0 Abs Lymphocytes 2.0 K/uL 0.8-5.5 Abs Monocytes 0.6 K/uL 0.1-1.0 Abs Eosinophils 0.1 K/uL 0.0-0.5 Abs Basophils 0.0 K/uL 0.0-0.3 Lipid Treatment 04/03/2011 [facility] Cholesterol 139 mg/dL 50-199 Triglycerides 216 mg/dL High 10-150 HDL 35 mg/dL 35-85 70 Chol/ HDL Ratio 4.0 ratio 3.7-5.6 VLDL 43 mg/dL High 2-29 LDL (Calc) 61 mg/dL 20-129 71 Alt 15 U/L 5-45 Ast 17 U/L 12-40 Z#Hemoglobin A1c With Est Gluc 04/03/2011 [facility] Hemoglobin A1c 5.9 % 4.1-5.[address] Glucose 123 71-140 Comprehensive Metabolic (CMP) 12/03/2010 [facility] Sodium 144 mmol/L 135- 144 72 Potassium 5.1 mmol/L 3.6-5.2 Chloride 108 mmol/L 97-110 Carbon Dioxide 27 mmol/L 23-32 Glucose 87 mg/dL 70-105 BUN 12 mg/dL 6-22 Creatinine 0.5 mg/dL 0.5-1.3 Calcium 9.8 mg/dL 8.6-10.2 BUN/CR 24 ratio High 12-20 Total Protein 6.3 g/dL 5.8-7.8 Albumin 4.5 g/dL 3.5-4.8 Globulin 1.8 g/dL Low 2.0-3.5 A/G Ratio 2.5 Ratio High 1.0-2.2 Tbili 0.7 mg/dL 0.3-1.2 Alk Phos 75 U/L 24-140 Alt 19 U/L 5-45 Ast 17 U/L 12-40 Anion Gap 14 mmol/L 8-16 NAAeGFR >60 >60 73 AAeGFR >60 >60 74 Z#H[facility] A[facility]03[facility] 5.9 % 4.1-6.6 Eag 123 71-140 Lipid 12/03/2010 [facility] Cholesterol 172 mg/dL 50-199 Triglycerides 295 mg/dL High 10-150 HDL 39 mg/dL 35-85 75 Chol/HDL 4.4 ratio 3.7-5.6 VLDL 59 mg/dL High 2-29 LDL 74 mg/dL 20-129 76 Lipid Panel 08/06/2010 [facility] (Do not Use) Cholesterol 160 mg/dL 50 -199 77 [facility] [place] [address] [phone] Triglycerides 322 mg/dL High 10-150 HDL 36 mg/dL 35-85 78 Chol/HDL Ratio 4.4 Ratio 3.7-5.6 79 VLDL 64 mg/dL High 2-29 LDL (Calc) 60 mg/dL 20-129 80 CMP 08/06/2010 [facility] (Do not Use) Sodium 144 mmol/L 135-144 [facility] [place] [place] [address] [phone] Potassium 4.7 mmol/L 3.6-5.2 81 Chloride 108 mmol/L 97-110 Carbon Dioxide 29 mmol/L 23-32 Glucose 119 mg/dL High 70-105 BUN 12 mg/dL 6-22 Creatinine 0.6 mg/dL 0.5-1.3 BUN/CR 20 Ratio Calcium 9.7 mg/dL 8.6-10.2 82 Total Protein 6.0 g/dL 5.8-7.8 Albumin 4.1 g/dL 3.5-4.8 Globulin 1.9 g/dL Low 2.0-3.5 A/G Ratio 2.2 Ratio 1.0-2.2 Total Bilirubin 0.5 mg/dL 0.3-1.2 Alkaline Phosphatase 73 U/L 24-140 Alt 16 U/L 5-45 Ast 17 U/L 12-40 Anion Gap 12 mmol/L 8-16 GFR Calculation > 60 mL/min 60-175 83 GFR For > 60 mL/min 60-175 84 CMP 01/26/2010 [facility] (Do not Use) Sodium 140 mmol/L 135-144 85 [facility] [place] [place] [address] [phone] Potassium 3.8 mmol/L 3.6-5.2 86 Chloride 107 mmol/L 97-110 Carbon Dioxide 23 mmol/L 23-32 Glucose 82 mg/dL 70-105 BUN 10 mg/dL 6-22 Creatinine 0.5 mg/dL 0.5-1.3 BUN/CR 20 Ratio Calcium 9.0 mg/dL 8.6-10.2 87 Total Protein 6.0 g/dL 5.8-7.8 Albumin 4.0 g/dL 3.5-4.8 Globulin 2.0 g/dL 2.0-3.5 A/G Ratio 2.0 Ratio 1.0-2.2 Total Bilirubin 0.6 mg/dL 0.3-1.2 Alkaline Phosphatase 69 U/L 24-140 Alt 29 U/L 5-45 Ast 27 U/L 12-40 Anion Gap 14 mmol/L 8-16 GFR Calculation > 60 mL/min 60-175 88 GFR For > 60 mL/min 60-175 89 Lipid Panel 01/26/2010 [facility] (Do not Use) Cholesterol 93 mg/dL 50- 199 [facility] [place] [address] [phone] Triglycerides 153 mg/dL High 10-150 HDL 22 mg/dL Low 35-85 90 Chol/HDL Ratio 4.2 Ratio 3.7-5.6 91 VLDL 31 mg/dL High 2-29 LDL (Calc) 40 mg/dL 20-129 92 Laboratory test 01/26/2010 [facility] (Do not Use) Vitamin D, 25 22 ng/mL Low 31-100 finding [facility] [place] [address] [phone] CBC With Auto 01/26/2010 [facility] (Do not Use) WBC 3.9 K/ul Low 4.0- 10.9 Diff [facility] [place] [place] [address] [phone] RBC 4.80 M/ul 4.20-5.40 Hemoglobin 15.9 GM/dl 12.5-16.0 Hematocrit 44.8 % 36.0-47.0 MCV 93.3 FL 80.0-97.0 MCH 33.2 pg High 27.0-31.0 MCHC 35.5 g/dL 32.0-36.0 RDW 13.7 % 11.5-14.5 Platelet Count 126 K/ul Low 140-440 Neutrophils 53.4 % 50-70 Lymphocytes 31.7 % 20-44 Monocytes 13.3 % High 2-9 Eosinophil 1.2 % 0-4 Basophil 0.4 % 0-2 Absolute Neutrophils 2.1 K/ul 2.05-7.63 Absolute Lymphocytes 1.2 K/ul 0.8-4.8 Absolute Monocytes 0.5 K/ul 0.1-1.0 Absolute Eosinophils 0.0 K/ul Low 0.1-0.5 Absolute Basophils 0.0 K/ul 0.0-0.3 Hematology Comment (Comm2) N/A Laboratory 10/09/2009 [facility] (Do not Use) CRP- High 3.06 High 0.00- 3.00 93, 94 test finding [facility] Sensitivity mg/[place] [address] [phone] Vitamin D, 25 Hydroxy 32 ng/mL 31-100 Lipid Panel 10/09/2009 [facility] (Do not Use) Cholesterol 128 mg/dL 50 -199 [facility] [place] [place] [address] [phone] Triglycerides 197 mg/dL High 10-150 HDL 34 mg/dL Low 35-85 95 Chol/HDL Ratio 3.8 Ratio 3.7-5.6 96 VLDL 39 mg/dL High 2-29 LDL (Calc) 55 mg/dL 20-129 97 CMP 10/09/2009 [facility] (Do not Use) Sodium 141 mmol/L 135-144 [facility] [place] [place] [address] [phone] Potassium 4.4 mmol/L 3.6-5.2 Chloride 107 mmol/L 97-110 Carbon Dioxide 24 mmol/L 23-32 Glucose 78 mg/dL 70-105 BUN 10 mg/dL 6-22 Creatinine 0.6 mg/dL 0.5-1.3 BUN/CR 17 Ratio Calcium 9.6 mg/dL 8.6-10.2 Total Protein 6.3 g/dL 5.8-7.8 Albumin 4.2 g/dL 3.5-4.8 Globulin 2.1 g/dL 2.0-3.5 A/G Ratio 2.0 Ratio 1.0-2.2 Total Bilirubin 0.6 mg/dL 0.3-1.2 Alkaline Phosphatase 71 U/L 24-140 Alt 21 U/L 5-45 Ast 19 U/L 12-40 Anion Gap 14 mmol/L 8-16 GFR Calculation > 60 mL/min 60-175 98 GFR For > 60 mL/min 60-175 99 CBC With Auto Diff 07/05/2009 [facility] (Do not Use) WBC 7.1 K/ul 4.0- 10.9 100 [facility] [place] [place] [address] [phone] RBC 4.73 M/ul 4.20-5.40 Hemoglobin 15.5 GM/dl 12.5-16.0 Hematocrit 45.2 % 36.0-47.0 MCV 95.6 FL 80.0-97.0 MCH 32.7 pg High 27.0-31.0 MCHC 34.2 g/dL 32.0-36.0 RDW 13.3 % 11.5-14.5 Platelet Count 143 K/ul 140-440 Neutrophils 71.9 % High 50-70 Lymphocytes 19.7 % Low 20-44 Monocytes 6.6 % 2-9 Eosinophil 1.3 % 0-4 Basophil 0.5 % 0-2 Absolute Neutrophils 5.1 K/ul 2.05-7.63 Absolute Lymphocytes 1.4 K/ul 0.8-4.8 Absolute Monocytes 0.5 K/ul 0.1-1.0 Absolute Eosinophils 0.1 K/ul 0.1-0.5 Absolute Basophils 0.0 K/ul 0.0-0.3 Hematology Comment (Comm2) N/A CMP 07/05/2009 [facility] (Do not Use) Sodium 144 mmol/L 135-144 [facility] [place] [address] [phone] Potassium 4.5 mmol/L 3.6-5.2 101 Chloride 110 mmol/L 97-110 Carbon Dioxide 26 mmol/L 23-32 Glucose 90 mg/dL 70-105 BUN 16 mg/dL 6-22 Creatinine 0.6 mg/dL 0.5-1.3 BUN/CR 27 Ratio High 12.0-20.0 Calcium 9.4 mg/dL 8.6-10.2 Total Protein 5.8 g/dL 5.8-7.8 Albumin 4.2 g/dL 3.5-4.8 Globulin 1.6 g/dL Low 2.0-3.5 A/G Ratio 2.6 Ratio High 1.0-2.2 Total Bilirubin 0.7 mg/dL 0.3-1.2 Alkaline Phosphatase 68 U/L 24-140 Alt 35 U/L 5-45 Ast 25 U/L 12-40 Anion Gap 13 mmol/L 8-16 GFR Calculation > 60 mL/min 60-175 102 GFR For > 60 mL/min 60-175 103 Lipid Panel 07/05/2009 [facility] (Do not Use) Cholesterol 126 mg/dL 50 -199 [facility] [place] [place] [address] [phone] Triglycerides 195 mg/dL High 10-150 HDL 31 mg/dL Low 35-85 104 Chol/HDL Ratio 4.1 Ratio 3.7-5.6 105 VLDL 39 mg/dL High 2-29 LDL (Calc) 56 mg/dL 20-129 106 Laboratory test 07/05/2009 [facility] (Do not Use) TSH 4.82 uIU/ml 0.34 -5.60 [place] [address] [phone] Vitamin D, 25 Hydroxy 25 ng/mL Low 31-100 Magnesium 2.2 mg/dL 1.8-2.5 Lipid Panel 06/02/2008 [facility] (Do not Use) Cholesterol 114 mg/dL 50 -199 107 [facility] [place] [address] [phone] Triglycerides 149 mg/dL 10-150 HDL 36 mg/dL Abnormal (>40) 108 Chol/HDL Ratio 3.2 Ratio 109 VLDL 30 mg/dL LDL (Calc) 48 mg/dL 20-129 110 CBC With Auto Diff 06/02/2008 [facility] (Do not Use) WBC 6.1 K/ul 4.0- 10.9 [facility] [place] [place] [address] [phone] RBC 4.79 M/ul 4.20-5.40 Hemoglobin 15.8 GM/dl 12.5-16.0 Hematocrit 45.4 % 36.0-47.0 MCV 94.7 FL 80.0-97.0 MCH 33.0 pg High 27.0-31.0 MCHC 34.9 g/dL 32.0-36.0 RDW 13.8 % 11.5-14.5 Platelet Count 148 K/ul 140-440 Neutrophils 65.2 % 50-70 Lymphocytes 26.3 % 20-44 Monocytes 6.6 % 2-9 Eosinophil 1.5 % 0-4 Basophil 0.4 % 0-2 Absolute Neutrophils 4.0 K/ul 2.05-7.63 Absolute Lymphocytes 1.6 K/ul 0.8-4.8 Absolute Monocytes 0.4 K/ul 0.1-1.0 Absolute Eosinophils 0.1 K/ul 0.1-0.5 Absolute Basophils 0.0 K/ul 0.0-0.3 Laboratory test 06/02/2008 [facility] (Do not Use) Vitamin D, 25 30 ng/mL 19-58 finding [facility] [place] [address] [phone] CBC With Auto 08/17/2007 [facility] (Do not Use) WBC 8.0 K/ul 4.0-10.9 111 Diff [facility] [place] [place] [address] [phone] RBC 4.92 M/ul 4.20-5.40 Hemoglobin 16.1 GM/dl High 12.5-16.0 Hematocrit 47.0 % 36.0-47.0 MCV 95.5 FL 80.0-97.0 MCH 32.7 pg High 27.0-31.0 MCHC 34.2 g/dL 32.0-36.0 RDW 12.4 % 11.5-14.5 Platelet Count 196 K/ul 140-440 Neutrophils N/A % 50-70 Lymphocytes N/A % 20-44 Monocytes N/A % 2-9 Eosinophil N/A % 0-4 Basophil N/A % 0-2 Absolute Neutrophils N/A K/ul 2.05-7.63 Absolute Lymphocytes N/A K/ul 0.8-4.8 Absolute Monocytes N/A K/ul 0.1-1.0 Absolute Eosinophils N/A K/ul 0.1-0.5 Absolute Basophils N/A K/ul 0.1-0.3 Laboratory test 08/17/2007 [facility] (Do not Use) Free T4 0.72 ng/dL 0.50-1.60 finding [facility] [place] [place] [address] [phone] TSH 3.39 uIU/ml 0.34-5.60 Lipid Panel 08/17/2007 [facility] (Do not Use) Cholesterol 140 mg/dL 50 -199 [facility] [place] [place] [address] [phone] Triglycerides 269 mg/dL High 10-150 HDL 35 mg/dL 35-85 Chol/HDL Ratio 4.0 Ratio VLDL 54 mg/dL LDL (Calc) 51 mg/dL 20-129 CMP 08/17/2007 [facility] (Do not Use) Sodium 142 mmol/L 135-144 [facility] [place] [place] [address] [phone] Potassium 5.3 mmol/L High 3.6-5.2 112 Chloride 108 mmol/L 97-110 Carbon Dioxide 27 mmol/L 23-33 Glucose 99 mg/dL 70-105 BUN 14 mg/dL 6-22 Creatinine 0.8 mg/dL 0.5-1.3 BUN/CR 18 Ratio 12.0-20.0 Calcium 9.5 mg/dL 8.6-10.2 Total Protein 6.1 g/dL 5.8-7.8 Albumin 4.3 g/dL 3.5-4.8 Globulin 1.8 g/dL Low 2.0-3.5 A/G Ratio 2.4 Ratio High 1.0-2.2 Total Bilirubin 0.6 mg/dL 0.3-1.2 Alkaline Phosphatase 80 U/L 24-140 Alt 27 U/L 4-45 Ast 20 U/L 12-40 Anion Gap 12 mmol/L 8-16 GFR Calculation > 60 mL/min 113 GFR For > 60 mL/min 114 Diff For Manual CBC 08/17/2007 [employer] (Do not Use) Blast N/A % [facility] [place] [address] [phone] Promyelocyte N/A % Myelocyte N/A % Metamyelocyte 1 % Band 1 % Low 2-6 Neutrophil 54 % 50-70 Lymphocyte 33 % 20-44 Monocyte 8 % 2-9 Eosinophil 2 % 0-4 Basophil 1 % 0-2 Platelet Estimate NORMAL RBC Morphology NORMAL Anisocytosis N/A Poikilocytosis N/A Macrocytosis N/A Microcytosis N/A Hypochromasia N/A Atypical Lymphs N/A % Hyperchromia N/A Polychromasia N/A Abnormal Cells N/A CBC With Auto Diff 04/03/2007 [facility] (Do not Use) WBC 8.6 K/ul 4.0- 10.9 [facility] [place] [address] [phone] RBC 5.05 M/ul 4.20-5.40 Hemoglobin 16.7 GM/dl High 12.5-16.0 Hematocrit 46.9 % 36.0-47.0 MCV 92.9 FL 80.0-97.0 MCH 33.0 pg High 27.0-31.0 MCHC 35.5 g/dL 32.0-36.0 RDW 12.8 % 11.5-14.5 Platelet Count 187 K/ul 140-440 Neutrophils 64.3 % 50-70 Lymphocytes 27.1 % 20-44 Monocytes 7.7 % 2-9 Eosinophil 0.5 % 0-4 Basophil 0.4 % 0-2 Absolute Neutrophils 5.6 K/ul 2.05-7.63 Absolute Lymphocytes 2.3 K/ul 0.8-4.8 Absolute Monocytes 0.7 K/ul 0.1-1.0 Absolute Eosinophils 0.0 K/ul Low 0.1-0.5 Absolute Basophils 0.0 K/ul Low 0.1-0.3 CMP 04/03/2007 [facility] (Do not Use) Sodium 142 mmol/L 135-144 [facility] [place] [address] [phone] Potassium 4.5 mmol/L 3.6-5.2 Chloride 107 mmol/L 97-110 Carbon Dioxide 26 mmol/L 23-33 Glucose 79 mg/dL 70-105 BUN 12 mg/dL 6-22 Creatinine 0.7 mg/dL 0.5-1.3 BUN/CR 17 Ratio 12.0-20.0 Calcium 9.5 mg/dL 8.6-10.2 Total Protein 6.3 g/dL 5.8-7.8 Albumin 4.2 g/dL 3.5-4.8 Globulin 2.1 g/dL 2.0-3.5 A/G Ratio 2.0 Ratio 1.0-2.2 Total Bilirubin 0.8 mg/dL 0.3-1.2 Alkaline Phosphatase 82 U/L 24-140 Alt 21 U/L 4-45 Ast 18 U/L 12-40 Anion Gap 14 mmol/L 8-16 GFR Calculation > 60 mL/min 115 GFR For > 60 mL/min 116 Lipid Panel 04/03/2007 [facility] (Do not Use) Cholesterol 243 mg/dL High 50-199 [facility] [place] [address] [phone] Triglycerides 310 mg/dL High 10-150 HDL 35 mg/dL 35-85 Chol/HDL Ratio 6.9 Ratio VLDL 62 mg/dL LDL (Calc) Triglyceride papo <SEE NOTE> mg/dL 117 Laboratory test 04/03/2007 [facility] (Do not Use) TSH 3.37 uIU/ml 0.34 -5.60 [place] [address] [phone] Direct LDL 138 mg/dL High 20-129 CBC 07/02/2005 [facility] (Do not Use) WBC 8.0 K/ul 4.1-10.9 [place] [address] [phone] RBC 4.83 M/ul 4.20-6.30 Hemoglobin 15.3 GM/dl High 12.5-15.0 Hematocrit 45.9 % 36.0-47.0 MCV 94.9 FL 80.0-97.0 MCH 31.7 pg 26.0-32.0 MCHC 33.4 g/dL 31.0-36.0 RDW 12.7 % 11.5-14.5 Platelet Count 184 K/ul 140-440 Neutrophils 66.6 % 50-70 Lymphocytes 24.7 % 20-44 Monocytes 7.6 % 2-9 Eosinophil 0.6 % 0-4 Basophil 0.5 % 0-2 Absolute Neutrophils 5.4 K/ul 2.05-7.63 Absolute Lymphocytes 2.0 K/ul 0.8-4.8 Absolute Monocytes 0.6 K/ul 0.1-1.0 Absolute Eosinophils 0.0 K/ul Low 0.1-0.5 Absolute Basophils 0.0 K/ul Low 0.1-0.3 Laboratory test 07/02/2005 [facility] (Do not Use) TSH 3.25 uIU/ml 0.50 -6.00 [place] [address] [phone] CMP 07/02/2005 [facility] (Do not Use) Sodium 141 mmol/L 135-144 [place] [address] [phone] Potassium 4.2 mmol/L 3.6-5.2 Chloride 105 mmol/L 97-110 Carbon Dioxide 27 mmol/L 22-32 Glucose 92 mg/dL 70-105 BUN 14 mg/dL 6-22 Creatinine 0.7 mg/dL 0.5-1.3 BUN/CR 20 Ratio 12.0-20.0 Calcium 9.2 mg/dL 8.6-10.2 118 Total Protein 5.9 g/dL 5.8-7.8 Albumin 4.3 g/dL 3.5-4.8 Globulin 1.6 g/dL Low 2.0-3.5 A/G Ratio 2.7 Ratio High 1.0-2.2 Total Bilirubin 0.6 mg/dL 0.3-1.2 Ast 21 U/L 12-40 Alt 24 U/L 4-45 Alkaline Phosphatase 75 U/L 32-91 Anion Gap 13 mmol/L 8-16 Lipid Panel 07/02/2005 [facility] (Do not Use) Cholesterol 222 mg/dL High 50-199 [facility] [place] [place] [address] [phone] Triglycerides 310 mg/dL High 10-150 HDL 35 mg/dL 35-85 Chol/HDL Ratio 6.3 Ratio VLDL 62 mg/dL LDL (Calc) Triglyceride papo <SEE NOTE> mg/dL 119 Laboratory test 07/02/2005 [facility] (Do not Use) Direct LDL 137 mg/dL High 20-100 finding [facility] [place] [place] [address] [phone] CBC 10/13/2003 [facility] (Do not Use) WBC 7.8 K/ul 4.1-10.9 [facility] [place] [place] [address] [phone] RBC 5.25 M/ul 4.20-6.30 Hemoglobin 16.5 GM/dl High 12.5-15.0 Hematocrit 49.3 % 37.0-51.0 MCV 93.9 FL 80.0-97.0 MCH 31.5 pg 26.0-32.0 MCHC 33.5 g/dL 31.0-36.0 RDW 12.8 % 11.5-14.5 Platelet Count 178 K/ul 140-440 Neutrophils 58.4 % 50-70 Lymphocytes 31.1 % 20-44 Monocytes 8.4 % 2-9 Eosinophil 1.3 % 0-4 Basophil 0.8 % 0-2 Absolute Neutrophils 4.5 K/ul 2.05-7.63 Absolute Lymphocytes 2.4 K/ul 0.8-4.8 Absolute Monocytes 0.7 K/ul 0.1-1.0 Absolute Eosinophils 0.1 K/ul 0.1-0.5 Absolute Basophils 0.1 K/ul 0.1-0.3 Laboratory test 10/13/2003 [facility] (Do not Use) TSH 4.09 uIU/ml 0.50 -6.00 finding [facility] [place] [address] [phone] CMP 10/13/2003 [facility] (Do not Use) Sodium 146 mmol/L High 135-145 [place] [address] [phone] Potassium 4.8 mmol/L 3.4-5.3 Chloride 109 mmol/L 98-111 Carbon Dioxide 28 mmol/L 22-33 Glucose 93 mg/dL 70-105 BUN 14 mg/dL 6-26 Creatinine 0.7 mg/dL 0.5-1.5 BUN/CR 20 Ratio 12.0-20.0 Calcium 9.6 mg/dL 8.6-10.3 Total Protein 6.9 g/dL 6.2-8.3 Albumin 3.9 g/dL 3.5-5.0 Globulin 3.0 g/dL 2.7-4.3 A/G Ratio 1.3 Ratio 1.0-2.2 Total Bilirubin 0.7 mg/dL 0.1-1.3 Ast 18 U/L 8-42 Alt 20 U/L 3-42 Alkaline Phosphatase 79 U/L 24-140 Anion Gap 14 mmol/L 10-20 Lipid Panel 10/13/2003 [facility] (Do not Use) Cholesterol 164 mg/dL 50 -199 [facility] [place] [address] [phone] Triglycerides 246 mg/dL High 30-200 HDL 33 mg/dL Low 35-85 Chol/HDL Ratio 5.0 Ratio VLDL 49 mg/dL LDL (Calc) 82 mg/dL 20-129 CBC 09/03/2002 [facility] (Do not Use) WBC 6.0 K/ul 4.1-10.9 [facility] [place] [address] [phone] RBC 5.14 M/ul 4.2-6.3 Hemoglobin 15.6 GM/dl 12.0-16.0 Hematocrit 48.2 % 37.0-51.0 MCV 93.7 FL 80-97 MCH 30.3 pg 26.0-32.0 MCHC 32.4 g/dL 31.0-36.0 RDW 12.8 % 11.5-14.5 Platelet Count 163 K/ul 140-440 Neutrophils 49.8 % Low 50-70 Lymphocytes 32.3 % 20-44 Monocytes 14.6 % High 2-9 Eosinophil 2.3 % 0-4 Basophil 1.0 % 0-2 Absolute Neutrophils 3.0 K/ul 2.05-7.63 Absolute Lymphocytes 1.9 K/ul 0.8-4.8 Absolute Monocytes 0.9 K/ul 0.1-1.0 Absolute Eosinophils 0.1 K/ul 0.1-0.5 Absolute Basophils 0.1 K/ul 0.1-0.3 Laboratory test 09/03/2002 [facility] (Do not Use) TSH 2.97 uIU/ml 0.50 -6.00 finding [facility] [place] [address] [phone] CMP 09/03/2002 [facility] (Do not Use) Sodium 140 mmol/L 135-145 [facility] [place] [address] [phone] Potassium 4.2 mmol/L 3.4-5.3 Chloride 107 mmol/L 98-111 Carbon Dioxide 27 mmol/L 22-33 Glucose 96 mg/dL 70-105 BUN 14 mg/dL 6-26 Creatinine 0.6 mg/dL 0.5-1.5 BUN/CR 23 Ratio High 12.0-20.0 Calcium 9.3 mg/dL 8.6-10.3 Total Protein 6.6 g/dL 6.2-8.3 Albumin 4.3 g/dL 3.5-5.0 Globulin 2.3 g/dL Low 2.7-4.3 A/G Ratio 1.9 Ratio 1.0-2.2 Total Bilirubin 0.6 mg/dL 0.1-1.3 Ast 14 U/L 8-42 Alt 19 U/L 3-42 Alkaline Phosphatase 89 U/L 24-140 Lipid Panel 09/03/2002 [facility] (Do not Use) Cholesterol 200 mg/dL High 50-199 [facility] [place] [address] [phone] Triglycerides 388 mg/dL High 30-200 HDL 33 mg/dL Low 35-85 Chol/HDL Ratio 6.1 Ratio VLDL 78 mg/dL LDL (Calc) Triglyceride papo <SEE NOTE> mg/dL 20-129 120 Laboratory test 09/03/2002 [facility] (Do not Use) Direct LDL 122 mg/dL 20-129 finding [facility] [place] [address] [phone] 1 Updated reference range on new analyzer 2 Updated reference range on new analyzer 3 Concerning GFR Guidelines for Americans: Normal function or mild renal disease, if clinically at risk: >/=60 mL/min Moderately decreased: 30-59 Severely decreased: 15-29 Renal failure: <15 4 Concerning GFR Guidelines: Normal function or mild renal disease, if clinically at risk: >/=60 mL/min Moderately decreased: 30-59 Severely decreased: 15-29 Renal failure: <15 Glomerular Filtration Rate (GFR) is estimated based on the MDRD equation, which assumes a steady state for creatinine as recommended by the National Kidney Disease Education Program in conjunction with the National Institutes of Health and the National Kidney Foundation. Clinical conditions in which it may be necessary to measure GFR by using clearance methods include extremes of age and body size, severe malnutrition or obesity, diseases of skeletal muscle, paraplegia or quadriplegia, vegetarian diet, rapidly changing kidney function, and calculation of the dose of potentially toxic drugs that are excreted by the kidneys. 5 Updated Reference Range 6 Clinical Guidelines for recommended serum 25(OH)Vitamin D Deficient at less than 20 ng/mL Insufficient at 20 to <30 ng/mL Sufficient at 30-100 ng/mL Toxicity at greater than 100 ng/mL 7 Per NCEP ATP III Guidelines: Results lower than 40 mg/dL are suggestive of increased risk for coronary artery disease. Results > or=to 60 mg/dL are considered a negative risk factor. 8 Per NCEP ATP III Guidelines: Normal Population <130 Patients with medical conditions: CHD/DM Optimal: <100 Borderline high: 130-159 High: 160-189 Very high: >189 9 Updated reference range on new analyzer 10 Updated reference range on new analyzer 11 Concerning GFR Guidelines for Americans: Normal function or mild renal disease, if clinically at risk: >/=60 mL/min Moderately decreased: 30-59 Severely decreased: 15-29 Renal failure: <15 12 Concerning GFR Guidelines: Normal function or mild renal disease, if clinically at risk: >/=60 mL/min Moderately decreased: 30-59 Severely decreased: 15-29 Renal failure: <15 Glomerular Filtration Rate (GFR) is estimated based on the MDRD equation, which assumes a steady state for creatinine as recommended by the National Kidney Disease Education Program in conjunction with the National Institutes of Health and the National Kidney Foundation. Clinical conditions in which it may be necessary to measure GFR by using clearance methods include extremes of age and body size, severe malnutrition or obesity, diseases of skeletal muscle, paraplegia or quadriplegia, vegetarian diet, rapidly changing kidney function, and calculation of the dose of potentially toxic drugs that are excreted by the kidneys. 13 Updated Reference Range 14 Per NCEP ATP III Guidelines: Results lower than 40 mg/dL are suggestive of increased risk for coronary artery disease. Results > or=to 60 mg/dL are considered a negative risk factor. 15 Per NCEP ATP III Guidelines: Normal Population <130 Patients with medical conditions: CHD/DM Optimal: <100 Borderline high: 130-159 High: 160-189 Very high: >189 16 [employer] [place] [address] CYTOLOGY REPORT Source of Specimen(s): A: LBP Urine, Voided Clinical Diagnosis and History: R31.9 Gross Description LBP Urine, Voided: 5.0 ml yellow fluid. Final Diagnosis Specimen Adequacy Satisfactory Final Diagnosis NEGATIVE FOR HIGH-GRADE UROTHELIAL CARCINOMA. Benign squamous and urothelial cells Few scattered erythrocytes and neutrophils As applicable, positive and negative controls for all immunohistochemical and/or special stains were reviewed and considered appropriate. Reported: 05/15/2018 17:07 Electronically Signed Out By Hudson Dhillon MD [facility] Receptionist: Akosua SOLANO([facility]) [facility] ICD Code: R31.9 CPT Code: A: 71874E Unless otherwise specified, [facility] [place] [address] [place] [address] 17 Microbiology results SOURCE Clean Catch Midstream FINAL RESULT No growth 18 Updated reference range on new analyzer 19 Updated reference range on new analyzer 20 Concerning GFR Guidelines for Americans: Normal function or mild renal disease, if clinically at risk: >/=60 mL/min Moderately decreased: 30-59 Severely decreased: 15-29 Renal failure: <15 21 Concerning GFR Guidelines: Normal function or mild renal disease, if clinically at risk: >/=60 mL/min Moderately decreased: 30-59 Severely decreased: 15-29 Renal failure: <15 Glomerular Filtration Rate (GFR) is estimated based on the MDRD equation, which assumes a steady state for creatinine as recommended by the National Kidney Disease Education Program in conjunction with the National Institutes of Health and the National Kidney Foundation. Clinical conditions in which it may be necessary to measure GFR by using clearance methods include extremes of age and body size, severe malnutrition or obesity, diseases of skeletal muscle, paraplegia or quadriplegia, vegetarian diet, rapidly changing kidney function, and calculation of the dose of potentially toxic drugs that are excreted by the kidneys. 22 Updated Reference Range 23 Per NCEP ATP III Guidelines: Results lower than 40 mg/dL are suggestive of increased risk for coronary artery disease. Results > or=to 60 mg/dL are considered a negative risk factor. 24 Per NCEP ATP III Guidelines: Normal Population <130 Patients with medical conditions: CHD/DM Optimal: <100 Borderline high: 130-159 High: 160-189 Very high: >189 25 Recommended Cardiac Risk Assessment: Low < 1.0 mg/L Average 1.0 - 3.0 mg/L High > 3.0 mg/L 26 Updated reference range on new analyzer 27 Updated reference range on new analyzer 28 Concerning GFR Guidelines for Americans: Normal function or mild renal disease, if clinically at risk: >/=60 mL/min Moderately decreased: 30-59 Severely decreased: 15-29 Renal failure: <15 29 Concerning GFR Guidelines: Normal function or mild renal disease, if clinically at risk: >/=60 mL/min Moderately decreased: 30-59 Severely decreased: 15-29 Renal failure: <15 Glomerular Filtration Rate (GFR) is estimated based on the MDRD equation, which assumes a steady state for creatinine as recommended by the National Kidney Disease Education Program in conjunction with the National Institutes of Health and the National Kidney Foundation. Clinical conditions in which it may be necessary to measure GFR by using clearance methods include extremes of age and body size, severe malnutrition or obesity, diseases of skeletal muscle, paraplegia or quadriplegia, vegetarian diet, rapidly changing kidney function, and calculation of the dose of potentially toxic drugs that are excreted by the kidneys. 30 Updated reference range on new analyzer 31 Per NCEP ATP III Guidelines: Results lower than 40 mg/dL are suggestive of increased risk for coronary artery disease. Results > or=to 60 mg/dL are considered a negative risk factor. 32 Per NCEP ATP III Guidelines: Normal Population <130 Patients with medical conditions: CHD/DM Optimal: <100 Borderline high: 130-159 High: 160-189 Very high: >189 33 Concerning GFR Guidelines for Americans: Normal function or mild renal disease, if clinically at risk: >/=60 mL/min Moderately decreased: 30-59 Severely decreased: 15-29 Renal failure: <15 34 Concerning GFR Guidelines: Normal function or mild renal disease, if clinically at risk: >/=60 mL/min Moderately decreased: 30-59 Severely decreased: 15-29 Renal failure: <15 Glomerular Filtration Rate (GFR) is estimated based on the MDRD equation, which assumes a steady state for creatinine as recommended by the National Kidney Disease Education Program in conjunction with the National Institutes of Health and the National Kidney Foundation. Clinical conditions in which it may be necessary to measure GFR by using clearance methods include extremes of age and body size, severe malnutrition or obesity, diseases of skeletal muscle, paraplegia or quadriplegia, vegetarian diet, rapidly changing kidney function, and calculation of the dose of potentially toxic drugs that are excreted by the kidneys. 35 This sample is drawn by:ELISABETH. 36 Per NCEP ATP III Guidelines: Results lower than 40 mg/dL are suggestive of increased risk for coronary artery disease. Results > or=to 60 mg/dL are considered a negative risk factor. 37 Per NCEP ATP III Guidelines: Normal Population <130 Patients with medical conditions: CHD/DM Optimal: <100 Borderline high: 130-159 High: 160-189 Very high: >189 38 Concerning GFR Guidelines for Americans: Normal function or mild renal disease, if clinically at risk: >/=60 mL/min Moderately decreased: 30-59 Severely decreased: 15-29 Renal failure: <15 39 Concerning GFR Guidelines: Normal function or mild renal disease, if clinically at risk: >/=60 mL/min Moderately decreased: 30-59 Severely decreased: 15-29 Renal failure: <15 Glomerular Filtration Rate (GFR) is estimated based on the MDRD equation, which assumes a steady state for creatinine as recommended by the National Kidney Disease Education Program in conjunction with the National Institutes of Health and the National Kidney Foundation. Clinical conditions in which it may be necessary to measure GFR by using clearance methods include extremes of age and body size, severe malnutrition or obesity, diseases of skeletal muscle, paraplegia or quadriplegia, vegetarian diet, rapidly changing kidney function, and calculation of the dose of potentially toxic drugs that are excreted by the kidneys. 40 Per NCEP ATP III Guidelines: Results lower than 40 mg/dL are suggestive of increased risk for coronary artery disease. Results > or=to 60 mg/dL are considered a negative risk factor. 41 Per NCEP ATP III Guidelines: Normal Population <130 Patients with medical conditions: CHD/DM Optimal: <100 Borderline high: 130-159 High: 160-189 Very high: >189 42 Concerning GFR Guidelines for Americans: Normal function or mild renal disease, if clinically at risk: >/=60 mL/min Moderately decreased: 30-59 Severely decreased: 15-29 Renal failure: <15 43 Concerning GFR Guidelines: Normal function or mild renal disease, if clinically at risk: >/=60 mL/min Moderately decreased: 30-59 Severely decreased: 15-29 Renal failure: <15 Glomerular Filtration Rate (GFR) is estimated based on the MDRD equation, which assumes a steady state for creatinine as recommended by the National Kidney Disease Education Program in conjunction with the National Institutes of Health and the National Kidney Foundation. Clinical conditions in which it may be necessary to measure GFR by using clearance methods include extremes of age and body size, severe malnutrition or obesity, diseases of skeletal muscle, paraplegia or quadriplegia, vegetarian diet, rapidly changing kidney function, and calculation of the dose of potentially toxic drugs that are excreted by the kidneys. 44 This sample is drawn by:CT 45 Concerning GFR Guidelines for Americans: Normal function or mild renal disease, if clinically at risk: >/=60 mL/min Moderately decreased: 30-59 Severely decreased: 15-29 Renal failure: <15 46 Concerning GFR Guidelines: Normal function or mild renal disease, if clinically at risk: >/=60 mL/min Moderately decreased: 30-59 Severely decreased: 15-29 Renal failure: <15 Glomerular Filtration Rate (GFR) is estimated based on the MDRD equation, which assumes a steady state for creatinine as recommended by the National Kidney Disease Education Program in conjunction with the National Institutes of Health and the National Kidney Foundation. Clinical conditions in which it may be necessary to measure GFR by using clearance methods include extremes of age and body size, severe malnutrition or obesity, diseases of skeletal muscle, paraplegia or quadriplegia, vegetarian diet, rapidly changing kidney function, and calculation of the dose of potentially toxic drugs that are excreted by the kidneys. 47 Per NCEP ATP III Guidelines: Results lower than 40 mg/dL are suggestive of increased risk for coronary artery disease. Results > or=to 60 mg/dL are considered a negative risk factor. 48 Per NCEP ATP III Guidelines: Normal Population <130 Patients with medical conditions: CHD/DM Optimal: <100 Borderline high: 130-159 High: 160-189 Very high: >189 49 4.6 Specimen Slightly Hemolyzed 50 23 Testing performed on an aliquot tube. 51 Concerning GFR Guidelines for Americans: Normal function or mild renal disease, if clinically at risk: >/=60 mL/min Moderately decreased: 30-59 Severely decreased: 15-29 Renal failure: <15 52 Concerning GFR Guidelines: Normal function or mild renal disease, if clinically at risk: >/=60 mL/min Moderately decreased: 30-59 Severely decreased: 15-29 Renal failure: <15 Glomerular Filtration Rate (GFR) is estimated based on the MDRD equation, which assumes a steady state for creatinine as recommended by the National Kidney Disease Education Program in conjunction with the National Institutes of Health and the National Kidney Foundation. Clinical conditions in which it may be necessary to measure GFR by using clearance methods include extremes of age and body size, severe malnutrition or obesity, diseases of skeletal muscle, paraplegia or quadriplegia, vegetarian diet, rapidly changing kidney function, and calculation of the dose of potentially toxic drugs that are excreted by the kidneys. 53 Per NCEP ATP III Guidelines: Results lower than 40 mg/dL are suggestive of increased risk for coronary artery disease. Results > or=to 60 mg/dL are considered a negative risk factor. 54 Per NCEP ATP III Guidelines: Normal Population <130 Patients with medical conditions: CHD/DM Optimal: <100 Borderline high: 130-159 High: 160-189 Very high: >189 55 This sample is drawn by:MM 56 Concerning GFR Guidelines for Americans: Normal function or mild renal disease, if clinically at risk: >/=60 mL/min Moderately decreased: 30-59 Severely decreased: 15-29 Renal failure: <15 57 Concerning GFR Guidelines: Normal function or mild renal disease, if clinically at risk: >/=60 mL/min Moderately decreased: 30-59 Severely decreased: 15-29 Renal failure: <15 Glomerular Filtration Rate (GFR) is estimated based on the MDRD equation, which assumes a steady state for creatinine as recommended by the National Kidney Disease Education Program in conjunction with the National Institutes of Health and the National Kidney Foundation. Clinical conditions in which it may be necessary to measure GFR by using clearance methods include extremes of age and body size, severe malnutrition or obesity, diseases of skeletal muscle, paraplegia or quadriplegia, vegetarian diet, rapidly changing kidney function, and calculation of the dose of potentially toxic drugs that are excreted by the kidneys. 58 This sample is drawn by:CT PATIENT OFF STATIN. SELF D/C'ED. STRESS CONTINUATION...MMT 59 Concerning GFR Guidelines for Americans: Normal function or mild renal disease, if clinically at risk: >/=60 mL/min Moderately decreased: 30-59 Severely decreased: 15-29 Renal failure: <15 60 Concerning GFR Guidelines: Normal function or mild renal disease, if clinically at risk: >/=60 mL/min Moderately decreased: 30-59 Severely decreased: 15-29 Renal failure: <15 Glomerular Filtration Rate (GFR) is estimated based on the MDRD equation, which assumes a steady state for creatinine as recommended by the National Kidney Disease Education Program in conjunction with the National Institutes of Health and the National Kidney Foundation. Clinical conditions in which it may be necessary to measure GFR by using clearance methods include extremes of age and body size, severe malnutrition or obesity, diseases of skeletal muscle, paraplegia or quadriplegia, vegetarian diet, rapidly changing kidney function, and calculation of the dose of potentially toxic drugs that are excreted by the kidneys. 61 Per NCEP ATP III Guidelines: Results lower than 40 mg/dL are suggestive of increased risk for coronary artery disease. Results > or=to 60 mg/dL are considered a negative risk factor. 62 Per NCEP ATP III Guidelines: Optimal: <100 Near optimal: 100-129 Borderline high: 130-159 High: 160-189 Very high: >189 63 This sample is drawn by:CT 64 A Negative serologic test for Lyme Disease indicates no serologic evidence of infection with B burgdorferi at the time this specimen was collected. A repeat specimen should be collected in 2 to 4 weeks if clinically indicated. Unless otherwise specified, testing performed by [facility] [address] [address] 65 This sample is drawn by:MM 66 Concerning GFR Guidelines: Normal function or mild renal disease, if clinically at risk: >/=60 mL/min Moderately decreased: 30-59 Severely decreased: 15-29 Renal failure: <15 Glomerular Filtration Rate (GFR) is estimated based on the MDRD equation, which assumes a steady state for creatinine as recommended by the National Kidney Disease Education Program in conjunction with the National Institutes of Health and the National Kidney Foundation. Clinical conditions in which it may be necessary to measure GFR by using clearance methods include extremes of age and body size, severe malnutrition or obesity, diseases of skeletal muscle, paraplegia or quadriplegia, vegetarian diet, rapidly changing kidney function, and calculation of the dose of potentially toxic drugs that are excreted by the kidneys. 67 Concerning GFR Guidelines for Americans: Normal function or mild renal disease, if clinically at risk: >/=60 mL/min Moderately decreased: 30-59 Severely decreased: 15-29 Renal failure: <15 68 Per NCEP ATP III Guidelines: Results lower than 40 mg/dL are suggestive of increased risk for coronary artery disease. Results > or=to 60 mg/dL are considered a negative risk factor. 69 Per NCEP ATP III Guidelines: Optimal: <100 Near optimal: 100-129 Borderline high: 130-159 High: 160-189 Very high: >189 70 Per NCEP ATP III Guidelines: Results lower than 40 mg/dL are suggestive of increased risk for coronary artery disease. Results > or=to 60 mg/dL are considered a negative risk factor. 71 Per NCEP ATP III Guidelines: Optimal: <100 Near optimal: 100-129 Borderline high: 130-159 High: 160-189 Very high: >189 72 This sample is drawn by:CT 73 Concerning GFR Guidelines: Normal function or mild renal disease, if clinically at risk: >/=60 mL/min Moderately decreased: 30-59 Severely decreased: 15-29 Renal failure: <15 Glomerular Filtration Rate (GFR) is estimated based on the MDRD equation, which assumes a steady state for creatinine as recommended by the National Kidney Disease Education Program in conjunction with the National Institutes of Health and the National Kidney Foundation. Clinical conditions in which it may be necessary to measure GFR by using clearance methods include extremes of age and body size, severe malnutrition or obesity, diseases of skeletal muscle, paraplegia or quadriplegia, vegetarian diet, rapidly changing kidney function, and calculation of the dose of potentially toxic drugs that are excreted by the kidneys. 74 Concerning GFR Guidelines for Americans: Normal function or mild renal disease, if clinically at risk: >/=60 mL/min Moderately decreased: 30-59 Severely decreased: 15-29 Renal failure: <15 75 Per NCEP ATP III Guidelines: Results lower than 40 mg/dL are suggestive of increased risk for coronary artery disease. Results > or=to 60 mg/dL are considered a negative risk factor. 76 Per NCEP ATP III Guidelines: Optimal: <100 Near optimal: 100-129 Borderline high: 130-159 High: 160-189 Very high: >189 77 The difference between the most recent result of 93 and the current result of 160 exceeds the absolute delta value of 50 as defined for this test. 78 PER NCEP ATP III GUIDELINES: RESULTS LOWER THAN 40 MG/DL ARE SUGGESTIVE OF INCREASED RISK FOR CORONARY ARTERY DISEASE. RESULTS > OR=TO 60 MG/DL ARE CONSIDERED A NEGATIVE RISK FACTOR. 79 INTERPRETATION OF CHOL-HDL RATIO CHD RISK FEMALE MALE VERY HIGH >8.3 >14.3 HIGH 5.6 - 8.3 6.7 - 14.3 AVERAGE 3.7 - 5.6 4.0 - 6.7 BELOW AVERAGE 2.5 - 3.7 2.7 - 4.0 PROTECTED <2.5 <2.7 80 PER NCEP ATP III GUIDELINES: OPTIMAL: <100 NEAR OPTIMAL: 100 - 129 BORDERLINE HIGH: 130 - 159 HIGH: 160 - 189 VERY HIGH: >189 81 The difference between the most recent result of 3.8 and the current result of 4.7 exceeds the absolute delta value of 0.5 as defined for this test. 82 The difference between the most recent result of 9.0 and the current result of 9.7 exceeds the absolute delta value of 0.3 as defined for this test. 83 Concerning GFR GUIDELINES: Normal Function or Mild Renal Disease, if clinically at risk: >/=60mL/min Moderately decreased: 30-59 Severely decreased: 15-29 Renal Failure: <15 Glomerular Filtration Rate (GFR) is estimated based on the MDRD equation, which assumes a steady state for creatinine as recommended by the National Kidney Disease Education Program in conjunction with the National Institutes of Health and the National Kidney Foundation. Clinical conditions in which it may be necessary to measure GFR by using clearance methods include extremes of age and body size, severe malnutrition or obesity, diseases of skeletal muscle, paraplegia or quadriplegia, vegetarian diet, rapidly changing kidney function, and calculation of the dose of potentially toxic drugs that are excreted by the kidneys. 84 Concerning GFR GUIDELINES: Normal Function or Mild Renal Disease, if clinically at risk: >/=60mL/min Moderately decreased: 30-59 Severely decreased: 15-29 Renal Failure: <15 85 This sample is drawn by: DB 86 The difference between the most recent result of 4.4 and the current result of 3.8 exceeds the absolute delta value of 0.5 as defined for this test. 87 The difference between the most recent result of 9.6 and the current result of 9.0 exceeds the absolute delta value of 0.3 as defined for this test. 88 Concerning GFR GUIDELINES: Normal Function or Mild Renal Disease, if clinically at risk: >/=60mL/min Moderately decreased: 30-59 Severely decreased: 15-29 Renal Failure: <15 Glomerular Filtration Rate (GFR) is estimated based on the MDRD equation, which assumes a steady state for creatinine as recommended by the National Kidney Disease Education Program in conjunction with the National Institutes of Health and the National Kidney Foundation. Clinical conditions in which it may be necessary to measure GFR by using clearance methods include extremes of age and body size, severe malnutrition or obesity, diseases of skeletal muscle, paraplegia or quadriplegia, vegetarian diet, rapidly changing kidney function, and calculation of the dose of potentially toxic drugs that are excreted by the kidneys. 89 Concerning GFR GUIDELINES: Normal Function or Mild Renal Disease, if clinically at risk: >/=60mL/min Moderately decreased: 30-59 Severely decreased: 15-29 Renal Failure: <15 90 PER NCEP ATP III GUIDELINES: RESULTS LOWER THAN 40 MG/DL ARE SUGGESTIVE OF INCREASED RISK FOR CORONARY ARTERY DISEASE. RESULTS > OR=TO 60 MG/DL ARE CONSIDERED A NEGATIVE RISK FACTOR. 91 INTERPRETATION OF CHOL-HDL RATIO CHD RISK FEMALE MALE VERY HIGH >8.3 >14.3 HIGH 5.6 - 8.3 6.7 - 14.3 AVERAGE 3.7 - 5.6 4.0 - 6.7 BELOW AVERAGE 2.5 - 3.7 2.7 - 4.0 PROTECTED <2.5 <2.7 92 PER NCEP ATP III GUIDELINES: OPTIMAL: <100 NEAR OPTIMAL: 100 - 129 BORDERLINE HIGH: 130 - 159 HIGH: 160 - 189 VERY HIGH: >189 93 This sample is drawn by:CT 94 Cardiac Risk Factors: HS-CRP Result: Risk Factor <1.0 LOW 1.0 - 3.0 AVERAGE >3.0 HIGH Patients with persistently unexplained, marked elevation of HS-CRP (greater than 10) after repeated testing should be evaluated for non-cardiovascular etiologies. 95 PER NCEP ATP III GUIDELINES: RESULTS LOWER THAN 40 MG/DL ARE SUGGESTIVE OF INCREASED RISK FOR CORONARY ARTERY DISEASE. RESULTS > OR=TO 60 MG/DL ARE CONSIDERED A NEGATIVE RISK FACTOR. 96 INTERPRETATION OF CHOL-HDL RATIO CHD RISK FEMALE MALE VERY HIGH >8.3 >14.3 HIGH 5.6 - 8.3 6.7 - 14.3 AVERAGE 3.7 - 5.6 4.0 - 6.7 BELOW AVERAGE 2.5 - 3.7 2.7 - 4.0 PROTECTED <2.5 <2.7 97 PER NCEP ATP III GUIDELINES: OPTIMAL: <100 NEAR OPTIMAL: 100 - 129 BORDERLINE HIGH: 130 - 159 HIGH: 160 - 189 VERY HIGH: >189 98 Concerning GFR GUIDELINES: Normal Function or Mild Renal Disease, if clinically at risk: >/=60mL/min Moderately decreased: 30-59 Severely decreased: 15-29 Renal Failure: <15 Glomerular Filtration Rate (GFR) is estimated based on the MDRD equation, which assumes a steady state for creatinine as recommended by the National Kidney Disease Education Program in conjunction with the National Institutes of Health and the National Kidney Foundation. Clinical conditions in which it may be necessary to measure GFR by using clearance methods include extremes of age and body size, severe malnutrition or obesity, diseases of skeletal muscle, paraplegia or quadriplegia, vegetarian diet, rapidly changing kidney function, and calculation of the dose of potentially toxic drugs that are excreted by the kidneys. 99 Concerning GFR GUIDELINES: Normal Function or Mild Renal Disease, if clinically at risk: >/=60mL/min Moderately decreased: 30-59 Severely decreased: 15-29 Renal Failure: <15 100 This sample is drawn by:LA 101 The difference between the most recent result of 5.3 and the current result of 4.5 exceeds the absolute delta value of 0.5 as defined for this test. 102 Concerning GFR GUIDELINES: Normal Function or Mild Renal Disease, if clinically at risk: >/=60mL/min Moderately decreased: 30-59 Severely decreased: 15-29 Renal Failure: <15 Glomerular Filtration Rate (GFR) is estimated based on the MDRD equation, which assumes a steady state for creatinine as recommended by the National Kidney Disease Education Program in conjunction with the National Institutes of Health and the National Kidney Foundation. Clinical conditions in which it may be necessary to measure GFR by using clearance methods include extremes of age and body size, severe malnutrition or obesity, diseases of skeletal muscle, paraplegia or quadriplegia, vegetarian diet, rapidly changing kidney function, and calculation of the dose of potentially toxic drugs that are excreted by the kidneys. 103 Concerning GFR GUIDELINES: Normal Function or Mild Renal Disease, if clinically at risk: >/=60mL/min Moderately decreased: 30-59 Severely decreased: 15-29 Renal Failure: <15 104 PER NCEP ATP III GUIDELINES: RESULTS LOWER THAN 40 MG/DL ARE SUGGESTIVE OF INCREASED RISK FOR CORONARY ARTERY DISEASE. RESULTS > OR=TO 60 MG/DL ARE CONSIDERED A NEGATIVE RISK FACTOR. 105 INTERPRETATION OF CHOL-HDL RATIO CHD RISK FEMALE MALE VERY HIGH >8.3 >14.3 HIGH 5.6 - 8.3 6.7 - 14.3 AVERAGE 3.7 - 5.6 4.0 - 6.7 BELOW AVERAGE 2.5 - 3.7 2.7 - 4.0 PROTECTED <2.5 <2.7 106 PER NCEP ATP III GUIDELINES: OPTIMAL: <100 NEAR OPTIMAL: 100 - 129 BORDERLINE HIGH: 130 - 159 HIGH: 160 - 189 VERY HIGH: >189 107 FASTING This sample is drawn by:CT 108 PER NCEP ATP III GUIDELINES: RESULTS LOWER THAN 40 MG/DL ARE SUGGESTIVE OF INCREASED RISK FOR CORONARY ARTERY DISEASE. RESULTS > OR=TO 60 MG/DL ARE CONSIDERED A NEGATIVE RISK FACTOR. 109 INTERPRETATION OF CHOL-HDL RATIO CHD RISK FEMALE MALE VERY HIGH >8.3 >14.3 HIGH 5.6 - 8.3 6.7 - 14.3 AVERAGE 3.7 - 5.6 4.0 - 6.7 BELOW AVERAGE 2.5 - 3.7 2.7 - 4.0 PROTECTED <2.5 <2.7 110 PER NCEP ATP III GUIDELINES: OPTIMAL <100 NEAR OPTIMAL 100 - 129 BORDERLINE HIGH 130 - 159 HIGH 160 - 189 VERY HIGH >189 111 FASTING 112 NO VISIBLE HEMOLYSIS 113 Concerning GFR GUIDELINES: Normal Function or Mild Renal Disease, if clinically at risk: >/=60mL/min Moderately decreased: 30-59 Severely decreased: 15-29 Renal Failure: <15 Glomerular Filtration Rate (GFR) is estimated based on the MDRD equation, which assumes a steady state for creatinine as recommended by the National Kidney Disease Education Program in conjunction with the National Institutes of Health and the National Kidney Foundation. Clinical conditions in which it may be necessary to measure GFR by using clearance methods include extremes of age and body size, severe malnutrition or obesity, diseases of skeletal muscle, paraplegia or quadriplegia, vegetarian diet, rapidly changing kidney function, and calculation of the dose of potentially toxic drugs that are excreted by the kidneys. 114 Concerning GFR GUIDELINES: Normal Function or Mild Renal Disease, if clinically at risk: >/=60mL/min Moderately decreased: 30-59 Severely decreased: 15-29 Renal Failure: <15 115 Concerning GFR GUIDELINES: Normal Function or Mild Renal Disease, if clinically at risk: >/=60mL/min Moderately decreased: 30-59 Severely decreased: 15-29 Renal Failure: <15 Glomerular Filtration Rate (GFR) is estimated based on the MDRD equation, which assumes a steady state for creatinine as recommended by the National Kidney Disease Education Program in conjunction with the National Institutes of Health and the National Kidney Foundation. Clinical conditions in which it may be necessary to measure GFR by using clearance methods include extremes of age and body size, severe malnutrition or obesity, diseases of skeletal muscle, paraplegia or quadriplegia, vegetarian diet, rapidly changing kidney function, and calculation of the dose of potentially toxic drugs that are excreted by the kidneys. 116 Concerning GFR GUIDELINES: Normal Function or Mild Renal Disease, if clinically at risk: >/=60mL/min Moderately decreased: 30-59 Severely decreased: 15-29 Renal Failure: <15 117 Triglyceride value>300mg/dl, see Direct LDL result 118 The difference between the most recent result of 9.6 and the current result of 9.2 exceeds the absolute delta value of 0.3 as defined for this test. 119 Triglyceride value >250 mg/dl, see Direct LDL result 120 Triglyceride value >250 mg/dl, see Direct LDL result Procedures Date Code Description Status 08/26/2018 [id number] Bone Mineral Density Test Completed 08/17/2018 91271 Electrocardiogram Complete Completed 06/11/2017 20563 Inj,Trigger Point(S) Single Or Multiple PTS, 1 Or 2 Completed Muscle Group( 11/08/2016 01218 Electrocardiogram Complete Completed 02/20/2015 97185 Airway Inhalation Treatment Completed 03/29/2014 [id number] Mammogram Completed 03/10/2014 85164 Electrocardiogram Complete Completed 03/10/2014 37222 Destruction Benign Lesions Other Than Skin Tags Up To Completed 14 Lesions 09/07/2012 14101 Destruc Any Method 2-14 Lesions,Each Pre Malig Completed 09/07/2012 95860 Destruction Lesion/Any Method Premalignant Lesions Completed 07/04/2009 48930 Admin Of Inj (Therapeutic Phrophylactic Or Diagnostic Completed Subq Inj 10/12/2008 23796 Destruction Benign Lesions Other Than Skin Tags Up To Completed 14 Lesions 10/12/2008 44740 Destruction Lesion/Any Method Premalignant Lesions Completed 10/12/2008 90678 Destruc Any Method 2-14 Lesions,Each Pre Malig Completed 10/09/2007 85466 Destruction Benign Lesions Other Than Skin Tags Up To Completed 14 Lesions 10/09/2007 84579 Destruc Any Method 2-14 Lesions,Each Pre Malig Completed 10/09/2007 92836 Destruction Lesion/Any Method Premalignant Lesions Completed 10/09/2007 18027 Remove Skin Tags Up To 15 Completed 08/24/2007 43355 Destruction Benign Lesions Other Than Skin Tags Up To Completed 14 Lesions 08/24/2007 08140 Remove Skin Tags Up To 15 Completed 04/03/2007 14691 Duplex Scan Extracranial Arteries, Complete Bilateral Completed Study 02/23/2007 39743 Electrocardiogram Complete Completed 07/03/2005 16066 Electrocardiogram Interpretation & Report Only Completed 07/03/2005 51158 Electrocardiogram Tracing Completed 04/10/2005 49128 Inject/Drain Joint/Bursa Major W/Out Ultrasound Completed Guidance 10/17/2003 22169 Shave Skin Lesion .6-1CM Trunk/Arm/Leg Completed 09/03/2002 49178 Electrocardiogram Complete Completed 05/22/2001 98888 Electrocardiogram Complete Completed Encounters Type Date Location Provider Dx Diagnosis Office Visit 07/10/2018 Sharad Espino PA J01.90 Acute sinusitis, 8:00a unspecified I10 Essential (primary) hypertension F17.210 Nicotine dependence, cigarettes, uncomplicated E78.2 Mixed hyperlipidemia I25.10 Athscl heart disease [place] coronary artery w/o ang pctrs Office Visit 06/02/2018 11:20a Sharad Espino PA R31.9 Hematuria, unspecified R10.812 LEFT upper quadrant abdominal tenderness J44.9 Chronic obstructive pulmonary disease, unspecified F17.210 Nicotine dependence, cigarettes, uncomplicated I25.10 Athscl heart disease of [place] coronary artery w/o ang pctrs I10 Essential (primary) hypertension E78.2 Mixed hyperlipidemia I65.29 Occlusion and stenosis of unspecified carotid artery Z23 Encounter for immunization Z68.25 Body mass index (BMI) 25.0-25.9, adult Office Visit 05/13/2018 3:40p Sharad Espino PA I25.10 Athscl heart disease of [place] coronary artery w/o ang pctrs I10 Essential (primary) hypertension E78.2 Mixed hyperlipidemia I65.29 Occlusion and stenosis of unspecified carotid artery F17.210 Nicotine dependence, cigarettes, uncomplicated J44.9 Chronic obstructive pulmonary disease, unspecified M65.332 Trigger finger, LEFT middle finger M54.42 Lumbago with sciatica, LEFT side 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, bilateral, stage unspecified E55.9 Vitamin D deficiency, unspecified R10.812 LEFT upper quadrant abdominal tenderness R31.9 Hematuria, unspecified Z68.25 Body mass index (BMI) 25.0-25.9, adult Office Visit 02/11/2018 8:20a Sharad Espino PA I25.10 Athscl heart disease of [place] coronary artery w/o ang pctrs J44.9 Chronic obstructive pulmonary disease, unspecified F17.210 Nicotine dependence, cigarettes, uncomplicated I10 Essential (primary) hypertension E78.2 Mixed hyperlipidemia M54.42 Lumbago with sciatica, LEFT side M65.332 Trigger finger, LEFT middle finger 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, bilateral, stage unspecified Z68.26 Body mass index (BMI) 26.0-26.9, adult Office Visit 12/22/2017 9:40a Sharad Espino PA I25.10 Athscl heart disease of [place] coronary artery w/o ang pctrs J44.9 Chronic obstructive pulmonary disease, unspecified F17.210 Nicotine dependence, cigarettes, uncomplicated I10 Essential (primary) hypertension E78.2 Mixed hyperlipidemia M54.42 Lumbago with sciatica, LEFT side M65.332 Trigger finger, LEFT middle finger Z68.25 Body mass index (BMI) 25.0-25.9, adult Office Visit 07/28/2017 11:00a Sharad Espino PA I25.10 Athscl heart disease of [place] coronary artery w/o ang pctrs M54.42 Lumbago with sciatica, LEFT side F17.210 Nicotine dependence, cigarettes, uncomplicated I10 Essential (primary) hypertension M65.332 Trigger finger, LEFT middle finger Z23 Encounter for immunization Office Visit 07/02/2017 1:00p Sharad Espino PA M54.42 Lumbago with sciatica, LEFT side Office Visit 06/11/2017 1:00p Sharad Espino PA I25.10 Athscl heart disease of [place] coronary artery w/o ang pctrs I10 Essential (primary) hypertension E78.2 Mixed hyperlipidemia J44.9 Chronic obstructive pulmonary disease, unspecified F17.210 Nicotine dependence, cigarettes, uncomplicated 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, bilateral, stage unspecified M54.32 Sciatica, LEFT side M60.9 Myositis, unspecified Z23 Encounter for immunization Office Visit 03/18/2017 10:40a Sharad Espino PA I25.10 Athscl heart disease of [place] coronary artery w/o ang pctrs I10 Essential (primary) hypertension E78.2 Mixed hyperlipidemia F17.210 Nicotine dependence, cigarettes, uncomplicated L82.1 Other seborrheic keratosis 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, bilateral, stage unspecified Office Visit 12/12/2016 10:40a Anny Fleming PA M25.532 Pain in LEFT wrist E78.2 Mixed hyperlipidemia I10 Essential (primary) hypertension E55.9 Vitamin D deficiency, unspecified I25.10 Athscl heart disease of [place] coronary artery w/o ang pctrs F17.210 Nicotine dependence, cigarettes, uncomplicated Office Visit 11/08/2016 9:20a Anny Fleming PA Z00.00 Encntr for general adult medical exam w/o abnormal findings M25.532 Pain in LEFT wrist E78.2 Mixed hyperlipidemia I10 Essential (primary) hypertension E55.9 Vitamin D deficiency, unspecified I25.10 Athscl heart disease of [place] coronary artery w/o ang pctrs F17.210 Nicotine dependence, cigarettes, uncomplicated I95.9 Hypotension, unspecified I49.1 Atrial premature depolarization Office Visit 06/26/2016 3:20p Anny Fleming PA M25.532 Pain in LEFT wrist Office Visit 04/24/2016 2:00p Shereen Brian, M25.532 Pain in LEFT wrist RN [place] [employer] Office Visit 01/19/2016 9:40a Shereen Brian, I25.10 Athscl heart disease RN [employer] [place] coronary artery w/o ang pctrs I10 Essential (primary) hypertension E78.2 Mixed hyperlipidemia E55.9 Vitamin D deficiency, unspecified R21 Rash and other nonspecific skin eruption F17.210 Nicotine dependence, cigarettes, uncomplicated Office Visit 06/28/2015 10:20a Zaira Sanchez MD 268.9 Vitamin D Deficiency Unspec I78.1 Nevus, non-neoplastic Z00.01 Encounter for general adult medical exam w abnormal findings Z23 Encounter for immunization I25.10 Athscl heart disease of [place] coronary artery w/o ang pctrs I10 Essential (primary) hypertension E78.2 Mixed hyperlipidemia E55.9 Vitamin D deficiency, unspecified I65.29 Occlusion and stenosis of unspecified carotid artery Z72.0 Tobacco use Office Visit 02/20/2015 2:00p Zaira Sanchez MD 478.9 Upper Resp Tract Disease Other & Unspec 305.1 Tobacco Use Disorder Office Visit 02/06/2015 2:15p Anette Grubbs 461.0 Sinusitis Acute [place], Maxillary 491.21 Bronchitis Obstructive Chronic W/Acute Exacerbation Office Visit 09/08/2014 11:00a Zaira Sanchez MD 401.1 Hypertension Benign 414.01 Coronary Atherosclerosis [place] 272.2 Hyperlipidemia Mixed 305.1 Tobacco Use Disorder 433.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 268.9 Vitamin D Deficiency Unspec Office Visit 03/10/2014 11:20a Zaira Sanchez MD V70.0 Exam (Adult ) General Medical Routine [facility] 414.01 Coronary Atherosclerosis [place] 401.1 Hypertension Benign 272.2 Hyperlipidemia Mixed 268.9 Vitamin D Deficiency Unspec 305.1 Tobacco Use Disorder 433.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 702.11 Seborrheic Keratosis Inflamed 702.19 Seborrheic Keratosis Other V77.1 Screening Diabetes Mellitus Office Visit 11/11/2013 8:40a Zaira Sanchez MD 433.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 414.01 Coronary Atherosclerosis [place] 401.1 Hypertension Benign 272.2 Hyperlipidemia Mixed 305.1 Tobacco Use Disorder 268.9 Vitamin D Deficiency Unspec Office Visit 08/11/2013 5:15p Meagan Osorio 414.01 Coronary MD Abilio Atherosclerosis [place] 433.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 401.1 Hypertension Benign 272.2 Hyperlipidemia Mixed 305.1 Tobacco Use Disorder Office Visit 07/14/2013 3:15p Meagan Osorio 414.01 Coronary MD Abilio Atherosclerosis [place] 433.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 401.1 Hypertension Benign 272.2 Hyperlipidemia Mixed 305.1 Tobacco Use Disorder V04.81 Need For Prophylactic Vaccination & Inoculation/Influenza Office Visit 05/26/2013 4:00p Abilio Ernandez MD 786.50 Pain Chest Unspec 433.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 401.1 Hypertension Benign 272.2 Hyperlipidemia Mixed 305.1 Tobacco Use Disorder Office Visit 03/15/2013 1:40p Zaira Sanchez, 381.81 Eustachian Tube MD Dysfunction 305.1 Tobacco Use Disorder Office Visit 09/07/2012 11:30a Abilio Ernandez, 789.06 Pain Abdominal MD Epigastric 401.1 Hypertension Benign 272.2 Hyperlipidemia Mixed 702.0 Actinic Keratosis 380.89 Ear External Disorders Other Office Visit 07/07/2012 1:40p Shereen Brian, 789.02 Pain Abdominal LEFT RN [place] [employer] [place] Office Visit 04/08/2012 3:30p Abilio Ernandez, 719.41 Pain Joint Shoulder MD Region 401.1 Hypertension Benign 272.2 Hyperlipidemia Mixed 305.1 Tobacco Use Disorder Office Visit 02/03/2012 10:30a Abilio Ernandez MD 719.41 Pain Joint Shoulder Region 401.1 Hypertension Benign 272.2 Hyperlipidemia Mixed 790.21 Impaired Fasting Glucose Office Visit 10/25/2011 10:45a Abilio Ernandez, 719.41 Pain Joint Shoulder MD Region Office Visit 09/25/2011 2:00p Abilio Ernandez, 719.41 Pain Joint Shoulder MD Region Office Visit 08/05/2011 9:45a Abilio Ernandez, 401.1 Hypertension Benign MD 272.2 Hyperlipidemia Mixed 433.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 790.21 Impaired Fasting Glucose 305.1 Tobacco Use Disorder 268.9 Vitamin D Deficiency Unspec V04.81 Need For Prophylactic Vaccination & Inoculation/Influenza Office Visit 04/03/2011 3:15p Abilio Ernandez 433.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 & Stenosis MD 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 401.1 Hypertension Benign 272.2 Hyperlipidemia Mixed 790.21 Impaired Fasting Glucose 305.1 Tobacco Use Disorder Office Visit 12/03/2010 9:15a Abilio Ernandez, 789.00 Pain Abdominal MD Unspec Site 401.1 Hypertension Benign 272.2 Hyperlipidemia Mixed 433.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 112.3 Candidiasis Skin & Nails 790.21 Impaired Fasting Glucose 388.70 Otalgia & Earache Unspec Office Visit 08/06/2010 12:00p Abilio Ernandez MD 401.1 Hypertension Benign 272.2 Hyperlipidemia Mixed 433.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 465.9 URI Upper Respiratory Infections Acute Unspec Sites 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 388.70 Otalgia & Earache Unspec 780.79 Malaise And Fatigue Other V04.81 Need For Prophylactic Vaccination & Inoculation/Influenza Office Visit 04/09/2010 9:00a Abilio Ernandez, 433.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 & Stenosis MD 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 401.1 Hypertension Benign 272.2 Hyperlipidemia Mixed 305.1 Tobacco Use Disorder 268.9 Vitamin D Deficiency Unspec Office Visit 01/26/2010 8:30a Abilio Ernandez, 558.9 Gastroenteritis & MD Colitis Noninfectious Other 272.2 Hyperlipidemia Mixed 268.9 Vitamin D Deficiency Unspec 401.1 Hypertension Benign Office Visit 10/09/2009 10:00a Abilio Ernandez, 789.01 Pain Abdominal RIGHT MD Upper Quadrant 272.2 Hyperlipidemia Mixed 268.9 Vitamin D Deficiency Unspec 305.1 Tobacco Use Disorder 401.1 Hypertension Benign 433.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 362.50 Macular Degeneration Senile Unspec Office Visit 08/21/2009 12:20p Abilio Ernandez, 789.01 Pain Abdominal RIGHT MD Upper Quadrant 599.70 Hematuria, Unspecified Office Visit 07/10/2009 11:10a Abilio Ernandez MD 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 427.69 Premature Beats Other 272.2 Hyperlipidemia Mixed 268.9 Vitamin D Deficiency Unspec 305.1 Tobacco Use Disorder Office Visit 07/04/2009 2:15p Anette Grubbs MD 401.1 Hypertension Benign 785.1 Palpitations 272.2 Hyperlipidemia Mixed 305.1 Tobacco Use Disorder V04.81 Need For Prophylactic Vaccination & Inoculation/Influenza Office Visit 02/06/2009 1:00p Abilio Ernandez, 719.67 Joint Symptoms Other MD Ankle & Foot Office Visit 08/24/2008 2:50p Abilio Ernandez, 780.4 Dizziness & MD Giddiness 724.3 Sciatica 272.2 Hyperlipidemia Mixed 305.1 Tobacco Use Disorder 433.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 Office Visit 06/03/2008 12:30p Abilio Ernandez MD 724.2 Lumbago 724.3 Sciatica 272.2 Hyperlipidemia Mixed Office Visit 02/03/2008 1:15p Shereen Brian, 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[employer] V70.0 Exam (Adult) General Medical Routine AT [facility] Care [facility] 709.8 Skin Disorders Other Spec 724.3 Sciatica 401.1 Hypertension Benign 305.1 Tobacco Use Disorder Office Visit 08/17/2007 8:30a Abilio Ernandez, 433.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 272.2 Hyperlipidemia Mixed 780.79 Malaise And Fatigue Other V04.81 Need For Prophylactic Vaccination & Inoculation/Influenza Office Visit 04/20/2007 10:40a Abilio Ernandez 433.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 784.0 Headache 272.0 Hypercholesterolemia Pure 305.1 Tobacco Use Disorder 796.2 Blood Pressure Reading Elevated W/O Hypertension Office Visit 02/23/2007 1:00p Anette Grubbs V72.81 Examination M,MD Preoperative Cardiovascular 272.0 Hypercholesterolemia Pure 305.1 Tobacco Use Disorder V76.10 Screening For Malignant Neoplasm Breast 785.9 Cardiovascular Symptoms Other V06.5 Tetanus Diphtheria (DT) 702.11 Seborrheic Keratosis Inflamed Office Visit 07/03/2005 Meagan Osorio V04.81 Need For Prophylactic 1:30p MD Abilio Vaccination & Inoculation/Influenza 447.9 Arteries And Arterioles Unspec Disorders 496 COPD Airway Obstruction Chronic Not Class Elsewhere 786.2 Cough 272.2 Hyperlipidemia Mixed V72.84 Examination Preoperative Unspec Office Visit 04/10/2005 4:10p Abilio Ernandez, 719.41 Pain Joint Shoulder MD Region Office Visit 01/27/2004 12:50p Abilio Ernandez, 780.4 Dizziness & MD Giddiness 388.30 Tinnitus Unspecified Office Visit 10/14/2003 1:10p Abilio Ernandez, 272.2 Hyperlipidemia Mixed 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 724.3 Sciatica 443.9 Peripheral Vascular Disease Unspec Office Visit 06/24/2003 3:20p Abilio Ernandez MD 496 COPD Airway Obstruction Chronic Not Class Elsewhere 786.2 Cough Office Visit 06/16/2003 2:30p Shereen Brian 493.90 Asthma Unspec W/O C, RN MS [employer] Status Asthmaticus Office Visit 09/03/2002 3:00p Meagan Osorio, 272.2 Hyperlipidemia Mixed MD Abilio 401.1 Hypertension Benign 461.0 Sinusitis Acute Maxillary 627.3 Atrophic Vaginitis Postmenopausal Office Visit 06/07/2002 2:40p Anette Grubbs 789.00 Pain Abdominal MD Kassy Unspec Site 728.85 Spasm Muscle Office Visit 04/28/2002 5:40p Abilio Ernandez MD 466.0 Bronchitis Acute 786.2 Cough 305.1 Tobacco Use Disorder Office Visit 03/17/2002 1:30p Shereen Brian RN MS 466.0 Bronchitis Acute [employer] 496 COPD Airway Obstruction Chronic Not Class Elsewhere 786.2 Cough 461.0 Sinusitis Acute Maxillary Office Visit 05/22/2001 10:20a Abilio Ernandez MD Office Visit 04/22/2001 5:45p Abilio Ernandez MD Office Visit 09/25/2000 8:40a Cathy Lopez, RN A.N.P. Office Visit 08/18/2000 10:40a Cathy Lopez, RN 110.3 Dermatophytosis Groin & A.N.P. Perianal Area Office Visit 05/12/2000 9:30a Abilio Ernandez, V76.9 Screening Malignant MD Neoplasm Unspec Plan of Treatment Future Appointment(s):02/16/2019 9:00 am - Sharad Muñoz PA at [id number] - Sharad Muñoz [id number] Essential (primary) hypertensionComments:Well controlled on medsE78.2 Mixed hyperlipidemiaComments:slightly high and Cardio wants on statin but had terrible myalgias and refuses to take. will holdcrestor and see if ROMO reduces. A/P:stopped Crestor and seems that ROMO has subsided. refuses to take any meds UPDATE: 08/17/2018: TC262; T222; H38; L180 with smoking and lipids 10yr ASCVD risk -- 39%.drops to ~30% with no smoking.drops to ~36% with reduced lipids.A/P:to consider treatment.I25.10 Atherosclerotic heart disease of [place] coronary artery withComments:stable and sees dgpizeC63.0 Age-related osteoporosis without current pathological fractuComments:DEXA with -2.4. recommend start bisphos. Rx'd Boniva monthly. A /P:to consider treatment. Rx sent to Pharmacy.
[2018-09-23] MEDS ORDERED: Albuterol/Ipratropium NEB.SOL* Albuterol 2.5 MG/Ipratropium 0.5 MG 3 ML INH ONE (17:43)
[2018-09-23] MEDS ORDERED: cefTRIAXone(*) 1 GM in NS 0.9% 50 ML* 50 ML IVPB ONE (17:44)
[2018-09-23] MEDS ORDERED: NS 0.9% 1000 ML* 1,000 ML IV ONE (17:44)
[2018-09-23] MEDS ORDERED: Azithromycin IV(*) 500 MG in NS 0.9% 250 ML* 250 ML IVPB ONE (17:44)
[2018-09-23] MEDS ORDERED: Dexamethasone IV* 4 MG/ML 1 ML (4 MG) IV SLOW PU ONE (17:44)
--- NOTE | 2018-09-23 17:52 | ED ---
Respiratory - HPI Summary HPI Summary: This pt is an 82 y/o female presenting to [facility] c/o SOB and productive cough for the past 6 days. She notes she began with a sore throat 6 days ago, but this resolved overnight. Pt reports she feels she is getting more SOB since her cough began. Per triage note, pt was found to be saturating at 91% on room air. Denies fever, chills, chest pain, nausea, vomiting. Pt is current smoker, 1 PPD. Denies hx of COPD or CHF. PMHx includes cardiac stents, CAD. Allergic to morphine (reaction is elevated BP). - History of Current Complaint Chief Complaint: EDShortnessOfBreath Stated Complaint: DIFF BREATHING/COUGH Time Seen by Provider: 09/23/18 17:25 Hx Obtained From: Patient Onset/Duration: Lasting Days, Still Present Timing: Constant Current Severity: Moderate Pain Intensity: 2 Character: Cough (Productive), Dyspnea at Rest Aggravating Factor(s): Nothing Alleviating Factor(s): Nothing Associated Signs and Symptoms: SOB - Allergy/Home Medications Allergies/Adverse Reactions: Allergies Allergy/AdvReac Type Severity Reaction Status Date / Time morphine AdvReac Headache Verified 09/23/18 16:24 PMH/Surg Hx/FS Hx/Imm Hx Endocrine/Hematology History: Denies: Hx Diabetes Cardiovascular History: Reports: Hx Angina, Hx Coronary Artery Disease, Hx Hypercholesterolemia, Hx Hypertension, Other Cardiovascular Problems/Disorders - cardiac stent, CARDIAC CATH 1998 Denies: Hx Congestive Heart Failure Respiratory History: Denies: Hx Chronic Obstructive Pulmonary Disease (COPD) History: Denies: Hx Dialysis, Hx Renal Disease Sensory History: Reports: Hx Contacts or Glasses, Hx Macular Degeneration, Hx Hearing Problem - pressure in left ear Denies: Hx Cataracts - implants, Hx Hearing Aid Opthamlomology History: Reports: Hx Contacts or Glasses, Hx Macular Degeneration Denies: Hx Cataracts - implants - Surgical History Surgery Procedure, Year, and Place: 1995 ruptured fallopian tube/ovary removal. 1997-inguinal repair. endartarectomy. cardiac cath w/ stents Hx Anesthesia Reactions: Yes - becomes sesverly hypotensive Infectious Disease History: No Infectious Disease History: Denies: Hx Clostridium Difficile, Hx Hepatitis, Hx Human Immunodeficiency Virus (HIV), Hx of Known/Suspected MRSA, Hx Shingles, Hx Tuberculosis, Hx Known/ Suspected VRE, Hx Known/Suspected VRSA, History Other Infectious Disease, Traveled Outside the [place] in Last 30 Days - Family History Known Family History: Positive: Cardiac Disease - Father at 55 from CAD, Diabetes, Other - Colon cancer. Diverticulosis. - Social History Alcohol Use: None Hx Substance Use: No Substance Use Type: Reports: None Hx Tobacco Use: Yes Smoking Status (MU): Heavy Every Day Tobacco Smoker Type: Cigarettes Amount Used/How Often: 1 ppd Have You Smoked in the Last Year: Yes Review of Systems Negative: Fever, Chills Positive: Sore Throat Negative: Chest Pain Positive: Shortness Of Breath, Cough Negative: Vomiting, Nausea All Other Systems Reviewed And Are Negative: Yes Physical Exam - Summary Physical Exam Summary: GENERAL: Patient is a well developed and nourished female who is lying comfortable in the stretcher. HEAD AND FACE: Normocephalic EYES: PERRLA, EOMI x 2. EARS: Hearing grossly intact. MOUTH: Oropharynx within normal limits. NECK: Supple, trachea is midline, no adenopathy, no JVD, no carotid bruit. CHEST: Symmetric, no tenderness at palpation LUNGS: Crackles worse on the right more than left. A little bit of expiratory wheezes. CVS: Regular rate and rhythm, S1 and S2 present, no murmurs or gallops appreciated. ABDOMEN: Soft, non-tender. Bowel sounds are normal. No abdominal abnormal pulsations. EXTREMITIES: Full ROM in all major joints, no edema, no cyanosis or clubbing. NEURO: Alert and oriented x 3. No acute neurological deficits. Speech is normal and follows commands. SKIN: Dry and warm Triage Information Reviewed: Yes Vital Signs On Initial Exam: Initial Vitals Temp Pulse Resp BP Pulse Ox 98.3 F 75 20 145/53 92 09/23/18 16:22 09/23/18 16:22 09/23/18 16:22 09/23/18 16:22 09/23/18 16:22 Vital Signs Reviewed: Yes Diagnostics - Vital Signs Vital Signs Temp Pulse Resp BP Pulse Ox 09/23/18 17:36 73 21 190/104 96 09/23/18 17:26 66 92 09/23/18 17:00 96 09/23/18 16:22 98.3 F 75 20 145/53 92 - Laboratory Result Diagrams: 09/23/18 17:52 09/23/18 17:52 Lab Statement: Any lab studies that have been ordered have been reviewed, and results considered in the medical decision making process. - Radiology Chest XR Radiology Interpretation Completed By: ED Physician Summary of Radiographic Findings: Normal chest XR. No pneumonia. - EKG 17:55 Cardiac Rate: NL - at 72 bpm EKG Rhythm: Sinus Rhythm Summary of EKG Findings: Q waves in anterior leads. Disposition - Course Assessment/Plan: Pt is an 82 y/o who presents with SOB and productive cough for the past 6 days. She notes she began with a sore throat 6 days ago, but this resolved overnight. Workup remarkable for troponin of 0.37, BNP of 164, positive Influenza A. Chest XR shows no pneumonia. Pt was given duoneb, Decadron, Rocephin, Azithromycin. Pt will be admitted. Case discussed with hospitalist and pt was accepted for admission. I discussed results with patient. The patient agrees with this plan. Diagnosis: Influenza A, rule out ACS. - Diagnoses Provider Diagnoses: Influenza A, Elevated troponin - Physician Notifications Discussed Care Of Patient With: Hospitalist Time Discussed With Above Provider: 18:43 Instructed by Provider To: Admit As Inpatient Discharge - Sign-Out/Discharge Documenting (check all that apply): Patient Departure - Admit to [facility] - Discharge Plan Condition: Stable Disposition: ADMITTED TO [facility] Referrals: Sharad Muñoz [Primary Care Provider] - - Billing Disposition and Condition Condition: STABLE Disposition: Admitted to [facility] - Attestation Statements Document Initiated by Dianibe: Yes Documenting Scribe: Dee Dee Avila Provider For Whom Antonio is Documenting (Include Credential): Cory Mckee MD Scribe Attestation: Dee Dee Pena, scribed for Cory Mckee MD on 09/23/18 at 1851. Scribe Documentation Reviewed: Yes Provider Attestation: The documentation as recorded by the Dee Dee garcia accurately reflects the service I personally performed and the decisions made by me, Cory Mckee MD Status of Scribe Document: Viewed
[2018-09-23 18:07] LABS: ABS Basophils 0 10^3/ul (0-0.2); ABS Eosinophils 0 10^3/ul (0-0.6); ABS Lymphocytes 1.4 10^3/ul (1.0-4.8); ABS Monocytes 0.5 10^3/ul (0-0.8); ABS Neutrophils 3.2 10^3/ul (1.5-7.7); ABS Nucleated RBC 0 10^3/ul; Eosinophil % 0.5 %; Hematocrit 45 % (35-47); Hemoglobin 15.2 g/dl (12.0-16.0); Lymphocyte % 27.7 %; Mean Corpuscular HGB Conc 34 g/dl (31-36); Mean Corpuscular Hemoglobin 31 pg (27-31); Mean Corpuscular Volume 92 fL (80-97); Nucleated Red Blood Cells % 0; Platelet Count 157 10^3/ul (150-450); Red Cell Distribution Width 14 % (10.5-15); White Blood Count 5.2 10^3/ul (3.5-10.8)
[2018-09-23 18:09] LABS: Urine Appearance Clear; Urine Bilirubin Negative (Negative); Urine Blood Negative (Negative); Urine Color Yellow; Urine Glucose Negative (Negative); Urine Ketones Negative (Negative); Urine Nitrite Negative (Negative); Urine Protein Negative (Negative); Urine Specific Gravity 1.006 (1.010-1.030); Urine Urobilinogen Negative (Negative)
[2018-09-23 18:27] LABS: Albumin 4.7 g/dL (3.2-5.2); Albumin/Globulin Ratio 1.8 (1-3); BUN/Creatinine Ratio 27.1 (8-20); Calcium 9.9 mg/dL (8.6-10.3); EGFR Non-African American 98.1 (>60); Globulin 2.6 g/dL (2-4); Magnesium 2.1 mg/dL (1.9-2.7); Potassium 3.5 mmol/L (3.5-5.0); Total Bilirubin 0.5 mg/dL (0.2-1.0); Total Protein 7.3 g/dL (6.4-8.9)
[2018-09-23 18:30] LABS: Activated Partial Thrombo Time 30.8 seconds (26.0-36.3); INR 0.96 (0.77-1.02)
[2018-09-23] MEDS ORDERED: Ondansetron INJ* 2 MG/ML VIAL IV PRN (19:14)
[2018-09-23] MEDS ORDERED: Albuterol 2.5 MG/3 ML NEB.SOL* (0.083%) INH PRN (19:20)
[2018-09-23] MEDS ORDERED: Oseltamivir CAP* 75 MG CAP PO SCH ×2 (19:23→21:00)
--- NOTE | 2018-09-23 20:45 | HP ---
CC: HEMA Hinds * HISTORY AND PHYSICAL: DATE OF ADMISSION: 09/23/18 PRIMARY CARE PROVIDER: HEMA Hinds. CHIEF COMPLAINT: Cough and shortness of breath. HISTORY OF PRESENT ILLNESS: Ms. Fernando is an 82-year-old female who states approximately 6 days ago she developed a sore throat on the right side of her throat. By night she states that she was shaking uncontrollably. She then developed shortness of breath, cough, and felt chilled. She states that she waxed and waned between feeling super hot and very cold. Her symptoms progressed through the course of the last 6 days. She states that she feels weak. She feels that she has no energy. She states she ordinarily does not have any breathing problems despite being a pack-a-day smoker over the last 65 years and states that with this illness she has been wheezing significantly. She has been coughing some since receiving an albuterol treatment in the ER. She states that she is now bringing up a slight amount of mucus. She does not use oxygen at home. She also states that she has not smoked in 1 week nor has she had any sick contacts. PAST MEDICAL HISTORY: 1. Hypertension. 2. Hyperlipidemia. 3. Coronary artery disease. PAST MEDICAL HISTORY: Left carotid endarterectomy with subsequent redo and then stenting due to restenosis. MEDICATIONS: 1. Amlodipine 5 mg p.o. daily. 2. Plavix 75 mg p.o. daily. 3. AREDS 2 one cap p.o. b.i.d. 4. Toprol-XL 25 mg p.o. daily. 5. Aspirin 81 mg p.o. daily. ALLERGIES: MORPHINE. FAMILY HISTORY: Mom at the age of 82 of coronary artery disease. Dad at the age of 50 of CHF. SOCIAL HISTORY: The patient is a 4-vkzw-nvy-day smoker for the last 65 years. She is a retired clinical nursing professor. She is . She has 7 children in total, 3 biologic children. She indicates that her daughter, Kenia Silvestre , is her primary healthcare proxy, but her stepsons, Kevin and Sharad, can also be surrogate decision makers for her. REVIEW OF SYSTEMS: A complete 11-system review of systems was obtained. Pertinent positives and negatives are as per HPI. In addition, the patient states that she has had fever, very poor appetite, nausea, and vomiting. Additionally, she also complains of headache. PHYSICAL EXAMINATION GENERAL: The patient is a well-developed elderly female, seen sitting up on the stretcher, in no acute distress. VITAL SIGNS: Blood pressure 145/53, pulse 75, respirations 20, temp 98.3, O2 saturation 92% on room air. HEENT: Pupils are equal and round. Extraocular muscles are intact. Oropharynx is clear. Oral mucosa is moist. The patient wears upper and lower dentures. NECK: There is no submandibular, cervical or supraclavicular adenopathy. Thyroid is not enlarged. No thyroid nodules noted. PULMONARY: Lungs have coarse rhonchi throughout. CARDIAC: Normal S1, S2. Regular rate and rhythm. I do not appreciate any murmurs. ABDOMEN: Bowel sounds are present. Abdomen is soft, nontender, nondistended. MUSCULOSKELETAL: There is no cyanosis or clubbing of the digits. There is full active range of motion of all 4 extremities. NEURO: Cranial nerves II through XII are grossly intact. Sensation is intact to light touch throughout. Strength is 5/5 and symmetric in both upper and lower extremities bilaterally. PSYCH: The patient is alert. She is oriented x3. Affect appears appropriate. SKIN: Warm and dry. There are no rashes. DIAGNOSTIC STUDIES/LAB DATA: WBC 5.2, hemoglobin 15.2, hematocrit 45, platelets 157. INR 0.96. Sodium 139, potassium 3.5, chloride 97, CO2 of 33, BUN 16, creatinine 0.59, glucose 94, lactic acid 0.9, calcium 9.9, magnesium 2.1. Bilirubin 0.5, AST 22, ALT 22, alk phos 94. Troponin 0.37. BNP 164. Albumin 4.7. Urinalysis reveals clear urine, without any signs of infection. Influenza A positive. EKG reveals normal sinus rhythm, with no acute ST-T wave abnormalities. Chest x - ray, to my interpretation, questionable right lower lobe mild infiltrate. ASSESSMENT AND PLAN: Ms. Fernando is an 82-year-old female with a history of ongoing tobacco abuse, hypertension, hyperlipidemia, and coronary artery disease , who presents to the emergency room with complaints of approximately 6 days of shortness of breath, cough, fever, and chills, and is found to be positive for influenza A. 1. Influenza A: The patient does not appear to be in any significant respiratory distress at this time. However, she has been treated with nebulizer treatment in the emergency room and steroids. She states that she is feeling better. At this point, we will admit her under observation status and continue Solu-Medrol 40 mg IV q.12 hours. She will be started on Tamiflu 75 mg p.o. twice daily despite the fact that she has had symptoms for several days due to the fact that she is being hospitalized. If the patient is stable from a respiratory standpoint, she may be able to be discharged home tomorrow if her troponin levels off. 2. Elevated troponin: This likely represents a type 2 non-ST elevation myocardial infarction. The patient likely was mildly hypoxic and in some respiratory distress at home prior to presenting, over the last 6 days. The patient will have a followup troponin drawn as well as followup EKG. If her troponin begins to improve or as stable, no further workup is necessary, especially given she does not complain of any chest pain. She will continue on her usual doses of aspirin, Plavix, and metoprolol. 3. Hypertension: The patient will continue on her usual dose of amlodipine and Toprol. 4. DVT prophylaxis: According to the Adult Thrombosis Prophylaxis Risk Factor Assessment Guide, the patient has a total risk factor score of 3, making her high risk. She will be placed on Lovenox 40 mg subcutaneous daily. 5. Code status is full. TIME SPENT: Sixty five minutes were spent admitting this patient. [id number]/[facility] #: [id number] IDALMIS
[2018-09-23] MEDS: Metoprolol Succinate XL TAB* 25 MG PO SCH (21:33)
[2018-09-23] MEDS: Aspirin EC TAB* 81 MG TAB.EC PO SCH (21:33)
[2018-09-23] MEDS: Enoxaparin(*) 40 MG/0.4 ML SYR SUBCUT SCH (21:33)
[2018-09-23] MEDS: NS 0.9% 1000 ML* 1,000 ML IV SCH (21:58)
[2018-09-23] MEDS: AREDS PO SCH (23:14)
[2018-09-24] MEDS: NS 0.9% 1000 ML* 1,000 ML IV SCH (08:12)
[2018-09-24] MEDS: amLODIPine TAB* 5 MG PO SCH (08:14)
[2018-09-24] MEDS: Oseltamivir CAP* 75 MG CAP PO SCH ×2 (08:14→21:12)
[2018-09-24] MEDS: Clopidogrel TAB* 75 MG PO SCH (08:14)
[2018-09-24] MEDS: methylPREDNISolone SOD 40 MG* 1 ML VIAL IV SCH ×2 (08:14→21:12)
[2018-09-24] MEDS: AREDS PO SCH ×2 (08:26→21:13)
--- NOTE | 2018-09-24 12:24 | PN ---
Subjective Date of Service: 09/24/18 Interval History: Pt is feeling nervous about going home. She is worried about her breathing and the fact that her troponin was positive. She states she is still SOB and wheezy. She has some coughing. No chest pain. Objective Active Medications: Albuterol (Ventolin 2.5 Mg/3 Ml Neb.Netta*) 2.5 mg INH Q4H PRN PRN Reason: SOB/WHEEZING Amlodipine Besylate (Norvasc Tab*) 5 mg PO DAILY [facility] Last Admin: 09/24/18 08:14 Dose: 5 mg Aspirin (Aspirin Ec Tab*) 81 mg PO BEDTIME [facility] Last Admin: 09/23/18 21:33 Dose: 81 mg Clopidogrel Bisulfate (Plavix Tab*) 75 mg PO DAILY [facility] Last Admin: 09/24/18 08:14 Dose: 75 mg Enoxaparin Sodium (Lovenox(*)) 40 mg SUBCUT Q24H [facility] Last Admin: 09/23/18 21:33 Dose: 40 mg Sodium Chloride (Ns 0.9% 1000 Ml*) 1,000 mls @ 100 mls/hr IV PER RATE [facility] Last Admin: 09/24/18 08:12 Dose: 100 mls/hr Methylprednisolone Sodium Succinate (Solu-Medrol 40 Mg) 40 mg IV Q12H [facility] Last Admin: 09/24/18 08:14 Dose: 40 mg Metoprolol Succinate (Toprol Xl Tab*) 25 mg PO BEDTIME [facility] Last Admin: 09/23/18 21:33 Dose: 25 mg Nft: Areds 1 Tab 1 tab PO BID [facility] Last Admin: 09/24/18 08:26 Dose: Not Given Ondansetron HCl (Zofran Inj*) 4 mg IV Q6H PRN PRN Reason: NAUSEA Oseltamivir Phosphate (Tamiflu Cap*) 75 mg PO 0900,2100 [facility] Stop: 09/27/18 21:01 Last Admin: 09/24/18 08:14 Dose: 75 mg Vital Signs - 8 hr 09/24/18 09/24/18 07:20 10:47 Temperature 97.4 F Pulse Rate 57 Respiratory 16 16 Rate Blood Pressure 132/60 (mmHg) O2 Sat by Pulse 96 Oximetry Oxygen Devices in Use Now: Nasal Cannula Appearance: Elderly female sitting up on the edge of the bed, NAD Eyes: No Scleral Icterus Ears/Nose/Mouth/Throat: Mucous Membranes Moist Respiratory: Symmetrical Chest Expansion and Respiratory Effort, - - decreased breath sounds throughout with occasional wheeze Cardiovascular: NL Sounds; No Murmurs; No JVD, No Edema Abdominal: NL Sounds; No Tenderness; No Distention Extremities: No Clubbing, Cyanosis Skin: No Nodules or Sclerosis Neurological: Alert and Oriented x 3 Result Diagrams: 09/23/18 17:52 09/23/18 17:52 Microbiology and Other Data: Microbiology 09/23/18 17:52 Influenza Types A,B Antigen - Final Nasal Specimen received for Influenza A/B Molecular testing Assess/Plan/Problems-Billing Ms Fernando is an 82 yo F who has a h/o CAD, HTN, HLD and ongoing tobacco abuse who presented to the ER with c/o SOB and was found to be positive for influenza A with evidence of demand ischemia. - Patient Problems (1) Influenza A Current Visit: Yes Status: Acute Code(s): J10.1 - FLU DUE TO OTH IDENT INFLUENZA VIRUS W OTH RESP MANIFEST SNOMED Code(s): 435284784 Comment: Pt with slightly less SOB. Contiue tamiflu and solumedrol. On d/c will have pt continue prednisone taper and use albuterol nebulizer intermittently. Pt states she has never been diagnosed with COPD but it is likely she has at least mild underlying COPD from her long standing smoking history. Outpatient PFTs may be useful. (2) Demand ischemia Current Visit: Yes Status: Acute Code(s): I24.8 - OTHER FORMS OF ACUTE ISCHEMIC HEART DISEASE SNOMED Code(s): 475053313 Comment: Pt with a troponin of 0.37 on admission down to 0.21. Pt with likely demand ischemia secondary to influenza and likely hypoxia while at home. Transthoracic echo ordered. Outpatient stress test could be done to evaluate for ischemia. (3) HTN (hypertension) Current Visit: Yes Status: Acute Code(s): I10 - ESSENTIAL (PRIMARY) HYPERTENSION SNOMED Code(s): 11451645 Comment: BP is under acceptable control on amlodipine 5mg daily and metoprolol XL 25mg daily. (4) HLD (hyperlipidemia) Current Visit: Yes Status: Acute Code(s): E78.5 - HYPERLIPIDEMIA, UNSPECIFIED SNOMED Code(s): 46318204 Comment: Not on therapy. (5) DVT prophylaxis Current Visit: Yes Status: Acute Code(s): TEX8892 - SNOMED Code(s): 916082025 Comment: hoodnox (6) Full code status Current Visit: Yes Status: Acute Code(s): Z78.9 - OTHER SPECIFIED HEALTH STATUS SNOMED Code(s): 869563738
--- NOTE | 2018-09-24 18:46 | ECHO ---
Patient: JAMES PATTON [facility] Rec#: [id number] : 1935 Date: 09/24/2018 Age: 82y Height: 165 cm / 65.0 in Weight: 64 kg / 141.1 lbs Sex: F BSA: 1.7 Room#: 432 Admit Date#: 09/23/2018 Type: Inpatient Referring: Deepa Choi DO Reading: Larry Fountain MD Radio Technician: Frances Maier RD Transthoracic Echocardiogram Indication: Elevated TROP BP: 132/60 HR: 63 Rhythm: NSR Findings History: HTN, HLD, CAD, smoker. Technical Comments: The study quality is good. Left Ventricle: The left ventricular chamber size is normal. Mild concentric left ventricular hypertrophy is observed. The estimated ejection fraction is 50-55%. There is an E to A reversal in the mitral valve flow pattern suggestive of diastolic dysfunction. Left Atrium: The left atrium is moderately dilated. Right Ventricle: The right ventricular chamber size and systolic function are within normal limits. The right ventricle wall thickness is mildly increased. Right Atrium: The right atrial cavity size is normal. Aortic Valve: The aortic valve is trileaflet. The aortic valve leaflets are mildly thickened. There is no evidence of aortic regurgitation. There is no evidence of aortic stenosis. Mitral Valve: The mitral valve leaflets are mildly thickened. There is mild mitral regurgitation. There is no evidence of mitral stenosis. Tricuspid Valve: The tricuspid valve leaflets are normal. There is trace tricuspid regurgitation. No pulmonary hypertension is noted. Pulmonic Valve: There is no evidence of pulmonic valve thickening. There is no evidence of pulmonic regurgitation. Pericardium: There is no significant pericardial effusion. Aorta: The aortic root appears normal. There is no dilatation of the aortic arch. Pulmonary Artery: The main pulmonary artery is not well visualized. Venous: The inferior vena cava appears normal in size. There is a greater than 50% respiratory change in the inferior vena cava dimension. Summary: There are changes noted when compared to the previous study done on 06/16/2013, MR is new. Conclusions Mild concentric left ventricular hypertrophy is observed. The estimated ejection fraction is 50-55%. There is an E to A reversal in the mitral valve flow pattern suggestive of diastolic dysfunction. The left atrium is moderately dilated. There is mild mitral regurgitation. There is trace tricuspid regurgitation. Measurements Name Value Normal Range RVIDd (AP) 2D 2.8 cm (0.9 - 2.6) RVDdMajor (2D) 4 cm (2.2 - 4.4) RAd ISD 4CH 4.5 cm (3.4 - 4.9) RA (A4C)W 4 cm (2.9 - 4.6) IVSd (2D) 1.1 cm (0.6 - 1) LVPWd (2D) 1.2 cm (0.6 - 1) LVIDd (2D) 5.1 cm (3.6 - 5.4) LVIDs (2D) 3.8 cm - LV FS (2D) 26 % (25 - 45) Aortic Annulus 1.9 cm (1.4 - 2.6) Ao root diameter (2D) 2.5 cm (2.1 - 3.5) Ascending Ao 2.7 cm (2.1 - 3.4) LA dimension (AP) 2D 3.7 cm (2.3 - 3.8) LAd ISD 4CH 5.7 cm (2.9 - 5.3) LA ISD 4CH W 4.9 cm (2.5 - 4.5) Name Value Normal Range LA ESV BP (A/L) index 52 ml/m2 - Name Value Normal Range MV E-wave Vmax 0.9 m/sec - MV deceleration time 285 msec - MV A-wave Vmax 1.3 m/sec - MV E:A ratio 0.7 ratio - LV septal e' Vmax 0.08 m/sec - LV lateral e' Vmax 0.08 m/sec - LV E:e' septal ratio 11 ratio - LV E:e' lateral ratio 11 ratio - Name Value Normal Range AV Vmax 1.5 m/sec - AV VTI 34 cm - AV peak gradient 9 mmHg - AV mean gradient 4 mmHg - LVOT diameter 2.1 cm - LVOT Vmax 0.7 m/sec - LVOT VTI 15 cm - LVOT peak gradient 2 mmHg - LVOT mean gradient 1 mmHg - Name Value Normal Range TR Vmax 2.1 m/sec - TR peak gradient 18 mmHg - RAP 3 mmHg - RVSP 21 mmHg - IVC diameter 2.1 cm - Name Value Normal Range PV Vmax 0.9 m/sec - PV peak gradient 3.2 mmHg -
[2018-09-24] MEDS: Aspirin EC TAB* 81 MG TAB.EC PO SCH (21:12)
[2018-09-24] MEDS: Metoprolol Succinate XL TAB* 25 MG PO SCH (21:12)
[2018-09-24] MEDS: Enoxaparin(*) 40 MG/0.4 ML SYR SUBCUT SCH (21:13)
--- NOTE | 2018-09-25 08:28 | PN ---
Subjective Date of Service: 09/25/18 Interval History: Feels "miserable" coughing feels sob Objective Active Medications: Albuterol (Ventolin 2.5 Mg/3 Ml Neb.Netta*) 2.5 mg INH Q4H PRN PRN Reason: SOB/WHEEZING Amlodipine Besylate (Norvasc Tab*) 5 mg PO DAILY PENDING SALE TO [facility] Last Admin: 09/24/18 08:14 Dose: 5 mg Aspirin (Aspirin Ec Tab*) 81 mg PO BEDTIME PENDING SALE TO [facility] Last Admin: 09/24/18 21:12 Dose: 81 mg Clopidogrel Bisulfate (Plavix Tab*) 75 mg PO DAILY PENDING SALE TO [facility] Last Admin: 09/24/18 08:14 Dose: 75 mg Enoxaparin Sodium (Lovenox(*)) 40 mg SUBCUT Q24H PENDING SALE TO [facility] Last Admin: 09/24/18 21:13 Dose: 40 mg Metoprolol Succinate (Toprol Xl Tab*) 25 mg PO BEDTIME PENDING SALE TO [facility] Last Admin: 09/24/18 21:12 Dose: 25 mg Multivitamins/Minerals (Theragran/Minerals Tab*) 1 tab PO DAILY PENDING SALE TO [facility] Ondansetron HCl (Zofran Inj*) 4 mg IV Q6H PRN PRN Reason: NAUSEA Oseltamivir Phosphate (Tamiflu Cap*) 75 mg PO 0900,2100 PENDING SALE TO [facility] Stop: 09/27/18 21:01 Last Admin: 09/24/18 21:12 Dose: 75 mg Vital Signs - 8 hr 09/25/18 09/25/18 09/25/18 01:03 03:34 04:01 Temperature 97.5 F 97.6 F Pulse Rate 54 64 65 Respiratory 18 28 20 Rate Blood Pressure 147/67 139/67 (mmHg) O2 Sat by Pulse 99 86 92 Oximetry 09/25/18 07:55 Temperature 97.7 F Pulse Rate 58 Respiratory 24 Rate Blood Pressure 151/69 (mmHg) O2 Sat by Pulse 95 Oximetry Oxygen Devices in Use Now: Nasal Cannula Appearance: sitting up, coughing Eyes: No Scleral Icterus, PERRLA Ears/Nose/Mouth/Throat: NL Teeth, Lips, Gums, Clear Oropharnyx Neck: NL Appearance and Movements; NL JVP Respiratory: Symmetrical Chest Expansion and Respiratory Effort, - - rhonchi greatest llb Cardiovascular: RRR Abdominal: NL Sounds; No Tenderness; No Distention, No Hepatosplenomegaly Lymphatic: No Cervical Adenopathy Skin: No Rash or Ulcers Neurological: Alert and Oriented x 3 Result Diagrams: 09/23/18 17:52 09/23/18 17:52 Microbiology and Other Data: Microbiology 09/23/18 17:52 Influenza Types A,B Antigen - Final Nasal Specimen received for Influenza A/B Molecular testing Assess/Plan/Problems-Billing Ms Fernando is an 82 yo F who has a h/o CAD, HTN, HLD and ongoing tobacco abuse ( 1ppd) who presented to the ER with c/o SOB and was found to be positive for influenza A with evidence of demand ischemia. - Patient Problems (1) Acute respiratory failure with hypoxia Comment: Highly suspect underlying COPD in setting of long time tob abuse and acute decompensation in setting of influenza start dulera, spiriva for COPD tamiflu decrease IV to PO prednisone ambulate (2) Tobacco abuse Comment: 65 yrs counseled cessation declining nicotine replacement (3) Demand ischemia Comment: Pt with a troponin of 0.37 on admission down to 0.21. Pt with likely demand ischemia secondary to influenza and likely hypoxia while at home. without RWMA. There is evidence of compensated chronic diastolic dysfunction (4) HTN (hypertension) Comment: BP is under acceptable control on amlodipine 5mg daily and metoprolol XL 25mg daily. (5) DVT prophylaxis Comment: lovenox Status and Disposition: ambulate to eval severity of ongoing hypoxic resp failure
[2018-09-25] MEDS ORDERED: Spiriva Inhaler DEVICE* 1 EACH DEVICE SCH (09:00)
[2018-09-25] MEDS: Tiotropium CAP.INH* CAP.INH/18 MCG (USE ORDER SET !) INH SCH (09:01)
[2018-09-25] MEDS: Mometasone/Formoter 100/5 MDI INH SCH ×2 (09:02→19:11)
[2018-09-25] MEDS: Oseltamivir CAP* 75 MG CAP PO SCH ×2 (10:40→20:42)
[2018-09-25] MEDS: Multivitamins/Minerals TAB PO SCH ×2 (10:40→10:47)
[2018-09-25] MEDS: amLODIPine TAB* 5 MG PO SCH (10:40)
[2018-09-25] MEDS: Clopidogrel TAB* 75 MG PO SCH (10:40)
[2018-09-25] MEDS: predniSONE TAB* 20 MG PO SCH (10:40)
[2018-09-25] MEDS: Metoprolol Succinate XL TAB* 25 MG PO SCH (20:41)
[2018-09-25] MEDS: Aspirin EC TAB* 81 MG TAB.EC PO SCH (20:42)
[2018-09-25] MEDS: Enoxaparin(*) 40 MG/0.4 ML SYR SUBCUT SCH (20:43)
[2018-09-26] MEDS: Mometasone/Formoter 100/5 MDI INH SCH (07:57)
[2018-09-26] MEDS: Tiotropium CAP.INH* CAP.INH/18 MCG (USE ORDER SET !) INH SCH (07:57)
[2018-09-26] MEDS: Oseltamivir CAP* 75 MG CAP PO SCH (08:33)
[2018-09-26] MEDS: Clopidogrel TAB* 75 MG PO SCH (08:33)
[2018-09-26] MEDS: amLODIPine TAB* 5 MG PO SCH (08:33)
[2018-09-26] MEDS: predniSONE TAB* 20 MG PO SCH (08:33)
[2018-09-26] MEDS: Multivitamins/Minerals TAB PO SCH (08:35)
[2018-09-26 12:15] VITALS: BP 141/71
--- NOTE | 2018-09-27 01:03 | DS ---
CC: HEMA Herrera, fax [phone] * DISCHARGE SUMMARY: DATE OF ADMISSION: 09/23/18 DATE OF DISCHARGE: 09/26/18 PRIMARY CARE PROVIDER: HEMA Herrera PRIMARY DIAGNOSES: 1. Influenza A. 2. New diagnosis chronic obstructive pulmonary disease. 3. Elevated troponin. 4. Demand ischemia. 5. Hypoxic respiratory failure. SECONDARY DIAGNOSES: Include: 1. Hypotension. 2. Hyperlipidemia. 3. Coronary artery disease. 4. Tobacco abuse. PERTINENT IMAGING DURING HOSPITAL STAY: Transthoracic echocardiogram, EF 50% to 55%. There is E/A reversible, suspicious for diastolic dysfunction, mild MR , trace TR. MEDICATIONS ON DISCHARGE: Include: 1. Clopidogrel 75 mg daily. 2. Aspirin 81 mg daily. 3. AREDS 1 tab twice daily. 4. Norvasc 5 mg daily. 5. Metoprolol succinate 25 mg at bedtime. 6. Prednisone 40 mg daily for 5 additional days. 7. Spiriva 1 cap inhaled daily. 8. Tamiflu 75 mg twice daily for 5 more doses. 9. Advair 250/50 1 puff twice daily. PERTINENT LABORATORY DATA: Influenza A positive. Troponin I 0.37 on presentation, decreased to 0.21 on consecutive checks. HISTORY OF PRESENT ILLNESS AND HOSPITAL COURSE: This is an 82-year-old female with past medical history as outlined in the history of present illness. On the day of admission, presented to the hospital with sore throat, shortness of breath, cough, and chills, found to be in hypoxic respiratory failure, requiring oxygen during the course of the hospital stay in the setting of influenza A. The patient has a 65- year-pack history of smoking, continues to smoke except for a while in the hospital. It is highly likely that the patient has COPD given her decompensation in the setting of influenza A. The patient was ambulated on the day of discharge, did not desat less than 89%. Her hypoxic respiratory failure was resolved prior to her discharge. She felt greatly improved prior to discharge. She had no fevers during the course of her hospital stay. There were no complications during the course of the hospital stay. At followup, please; 1. Consider PFTs for further evaluation of COPD. 2. Prolonged prednisone taper if not necessary based on respiratory status, although improved greatly at the time of discharge. 3. Can consider stress test and elevated troponins in the setting of demand ischemia if symptoms should develop. 4. No other specific labs or vitals that need followup here. Reasons to return to the hospital including, but not limited to recurrent or worsening symptoms, shortness of breath, chest pain, chest discomfort, lightheadedness, loss of consciousness or near loss of consciousness, bleeding from any source, inability to obtain or tolerate medications were discussed with the patient. She acknowledged understanding. TIME SPENT: Greater than 60 minutes was spent on discharge of this patient, greater than half was spent [id number] with the patient. [id number]/[facility] #: [id number] IDALMIS
== END 2018-09-26 15:00 | disposition home or self-care (01) | DRG 193 ==
LOC: ED 16:06 → MEDTELE 19:14 → OBSVTOIN 09-24 20:11
PROVIDERS: ADMIT Hospitalist; ATTEND Internal Medicine
DX: J10.1 Influenza due to other identified influenza virus with other respiratory manifestations (principal); J96.01 Acute respiratory failure with hypoxia; I24.8 Other forms of acute ischemic heart disease; I10 Essential (primary) hypertension; E78.5 Hyperlipidemia, unspecified; J44.9 Chronic obstructive pulmonary disease, unspecified; I25.10 Atherosclerotic heart disease of native coronary artery without angina pectoris; F17.210 Nicotine dependence, cigarettes, uncomplicated; R74.8 Abnormal levels of other serum enzymes; I95.9 Hypotension, unspecified; Z88.5 Allergy status to narcotic agent; Z82.49 Family history of ischemic heart disease and other diseases of the circulatory system; Z95.5 Presence of coronary angioplasty implant and graft; Z83.3 Family history of diabetes mellitus; Z80.0 Family history of malignant neoplasm of digestive organs; Z79.02 Long term (current) use of antithrombotics/antiplatelets; Z79.82 Long term (current) use of aspirin
CPT/HCPCS: 36415; 71046; 80053; 81003; 83605; 83735; 83880; 84484; 85025; 85610; 85730; 87040; 93005; 93306; 94640; 99285; 99406; A9270-GY; G0378; J0456; J0696; J1100; J1650; J2920; J7512

== ENCOUNTER 2018-10-24 22:04 | Emergency (ER) | payer MEDICARE, BC ==
--- NOTE | 2018-10-24 22:11 | ED ---
HPI Chest Pain - HPI Summary HPI Summary: An 82 y/o F brought in by ambulance presents to ED with c/o racing palpitations onset approx 1830 which lasted approximately an hour. At onset, pt was at home, seated and smoking. She began to feel pain radiating down her LUE. She called EMS at 2100 and was still having palpitations at that time. Pert PMHx: OR, stent approx 4-5 years ago. EMS put patient on O2 but did not give her nitro. Patient has mild, mild SOB, but she states she is getting over Influenza A. Upon arrival in ED, she says her palpitations have resolved, but she doesn't quite feel back to normal. She has smoked for 65 years, currently a 1ppd smoker. - History of Current Complaint Hx Obtained From: Patient, EMS Hx Last Menstrual Period: post Onset/Duration: Started Hours Ago, Atraumatic, Resolved Timing: Constant Chest Pain Radiates: Yes Chest Pain Radiates To:: Arm - LUE Character: Fast Alleviating Factor(s): Spontaneous Resolution Associated Signs and Symptoms: Positive: Other: - pos: LUE pain; mild SOB - Additional Pertinent History Primary Care Physician: [id number] - Allergy/Home Medications Allergies/Adverse Reactions: Allergies Allergy/AdvReac Type Severity Reaction Status Date / Time morphine AdvReac Headache Verified 09/23/18 16:24 PMH/Surg Hx/FS Hx/Imm Hx Previously Healthy: No Endocrine/Hematology History: Denies: Hx Diabetes Cardiovascular History: Reports: Hx Angina, Hx Coronary Artery Disease, Hx Hypercholesterolemia, Hx Hypertension, Other Cardiovascular Problems/Disorders - cardiac stent, CARDIAC CATH 1998 Denies: Hx Congestive Heart Failure Respiratory History: Denies: Hx Chronic Obstructive Pulmonary Disease (COPD) History: Denies: Hx Dialysis, Hx Renal Disease Sensory History: Reports: Hx Contacts or Glasses, Hx Macular Degeneration, Hx Hearing Problem - pressure in left ear Denies: Hx Cataracts - implants, Hx Hearing Aid Opthamlomology History: Reports: Hx Contacts or Glasses, Hx Macular Degeneration Denies: Hx Cataracts - implants - Surgical History Surgery Procedure, Year, and Place: 1995 ruptured fallopian tube/ovary removal. 1997-inguinal repair. endartarectomy. cardiac cath w/ stents Hx Anesthesia Reactions: Yes - becomes severly hypotensive Infectious Disease History: Denies: Hx Clostridium Difficile, Hx Hepatitis, Hx Human Immunodeficiency Virus (HIV), Hx of Known/Suspected MRSA, Hx Shingles, Hx Tuberculosis, Hx Known/ Suspected VRE, Hx Known/Suspected VRSA, History Other Infectious Disease - Family History Known Family History: Positive: Cardiac Disease - Father at 55 from CAD, Diabetes, Other - Colon cancer. Diverticulosis. - Social History Occupation: Retired Lives: With Family Alcohol Use: None Hx Substance Use: No Substance Use Type: Reports: None Hx Tobacco Use: Yes Smoking Status (MU): Heavy Every Day Tobacco Smoker Type: Cigarettes Amount Used/How Often: 1 ppd Have You Smoked in the Last Year: Yes Review of Systems Negative: Fever Positive: Palpitations Positive: Shortness Of Breath - mild Musculoskeletal: Other - LUE pain All Other Systems Reviewed And Are Negative: Yes Physical Exam - Summary Physical Exam Summary: Appearance: Well-appearing, Well-nourished, lying in bed comfortably Skin: Warm, dry, no obvious rash Eyes: sclera anicteric, no conjunctival pallor ENT: mucous membranes moist, pharynx appears normal Neck: Supple, nontender Respiratory: Clear to auscultation, no signs of respiratory distress Cardiovascular: Normal S1, S2. No murmurs. Normal distal pulses in tibial and radial bilaterally. Abdomen: Soft, nontender, normal active bowel sounds present Musculoskeletal: Normal, Strength/ROM Intact Neurological: A&Ox3, awake and alert, mentation is normal, speech is fluent and appropriate Psychiatric: affect is normal, does not appear anxious or depressed Triage Information Reviewed: Yes Vital Signs Reviewed: Yes Diagnostics - Laboratory Result Diagrams: 10/24/18 22:28 10/24/18 22:28 Lab Statement: Any lab studies that have been ordered have been reviewed, and results considered in the medical decision making process. - Radiology CXR Radiology Interpretation Completed By: ED Physician Summary of Radiographic Findings: No acute process. 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 Re-Evaluation - Re-Evaluation 1 Re-Evaluation Time: 00:10 Change: Improved Comment: Discussing results with pt. Pt has no complaints at this time. Chest Pain Course/Dx - Course Course Of Treatment: Pt is an 82 y/o F brought in by ambulance presenting with c /o racing palpitations onset approx 1830 which lasted approximately an hour. At onset, pt was at home, seated and smoking. She began to feel pain radiating down her LUE. She called EMS at 2100 and was still having palpitations at that time. Pert PMHx: OR, stent approx 4-5 years ago. EMS put patient on O2 but did not give her nitro. Patient has mild, mild SOB, but she states she is getting over Influenza A. Upon arrival in ED, she says her palpitations have resolved, but she doesn't quite feel back to normal. She has smoked for 65 years, currently a 1ppd smoker. Critical lab values include troponin: 0.09. Second trop is unchanged. EKG shows NSR at 78 bpm with atrial premature complex, old anteroseptal infarct. CXR shows no acute process. Will D/C patient home to f/u with Dr. Jeffers, cardiology. - Diagnoses Provider Diagnoses: Palpitations Discharge - Sign-Out/Discharge Documenting (check all that apply): Patient Departure - D/C Patient Received Moderate/Deep Sedation with Procedure: No - Discharge Plan Condition: Good Disposition: HOME Patient Education Materials: Heart Palpitations (ED) Referrals: Robert Jeffers DO [Medical Doctor] - Additional Instructions: Contact Dr. Jeffers's office for a visit next week. I suspect he will want to do some type of ambulatory heart rhythm monitoring. The tests we did on your heart this evening look ok. - Billing Disposition and Condition Condition: GOOD Disposition: Home - Attestation Statements Document Initiated by Dianibe: Yes Documenting Scribe: Avel Johnson Provider For Whom Antonio is Documenting (Include Credential): Dr. Michael Paul MD Scribe Attestation: I, Avel Johnson, scribed for Dr. Michael Paul MD on 10/25/18 at 0527. Scribe Documentation Reviewed: Yes Provider Attestation: The documentation as recorded by the Avel garcia accurately reflects the service I personally performed and the decisions made by me, Dr. Michael Paul MD Status of Scribe Document: Viewed
[2018-10-24 22:41] LABS: ABS Basophils 0.1 10^3/ul (0-0.2); ABS Eosinophils 0.1 10^3/ul (0-0.6); ABS Lymphocytes 1.6 10^3/ul (1.0-4.8); ABS Monocytes 0.7 10^3/ul (0-0.8); ABS Neutrophils 4.7 10^3/ul (1.5-7.7); ABS Nucleated RBC 0 10^3/ul; Hematocrit 41 % (35-47); Hemoglobin 13.7 g/dl (12.0-16.0); Lymphocyte % 22.8 %; Mean Corpuscular HGB Conc 34 g/dl (31-36); Mean Corpuscular Hemoglobin 31 pg (27-31); Mean Corpuscular Volume 92 fL (80-97); Nucleated Red Blood Cells % 0; Platelet Count 238 10^3/ul (150-450); Red Blood Count 4.42 10^6/ul (4.00-5.40); Red Cell Distribution Width 15 % (10.5-15); White Blood Count 7.1 10^3/ul (3.5-10.8)
[2018-10-24 22:51] LABS: Albumin 3.7 g/dL (3.2-5.2); Albumin/Globulin Ratio 1.4 (1-3); BUN/Creatinine Ratio 23.5 (8-20); Calcium 9.3 mg/dL (8.6-10.3); EGFR African American 100.7 (>60); EGFR Non-African American 83.3 (>60); Globulin 2.6 g/dL (2-4); Potassium 3.7 mmol/L (3.5-5.0); Total Bilirubin 0.3 mg/dL (0.2-1.0); Total Protein 6.3 g/dL (6.4-8.9)
[2018-10-24 22:55] LABS: Troponin I 0.09 ng/mL (<0.04)
--- OUTSIDE RECORDS SUMMARY | 2018-10-24 23:01 | XMS REPORT | Continuity of Care Document ---
:1935 External Reference #:[id number] Author Name Sharad Muñoz PA Address [address] [place] [address] Care Team Providers Name Role Phone Shereen Dias 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 Care Team Information Catch [place] Cleaner Unavailable Payers Type Date Identification Numbers Payment Provider Subscriber Effective: 2002 Policy Number: [id number] Medicare Fernanda Fernando Group Name: Federal [address] PayID: [id number] [facility] [place] [address] Effective: 2011 Policy Number: [id number] [facility] Commercial Fernanda Fernando PayID: [id number] [address] [address] [place] [phone] Advance Directives Description No Information Available Problems [...] Family Member(s) Problem(s) Comments Father due to [place] () - age 50 Father CHF : (age 80 Mother due to Stroke Years) First Brother [place] at 43yo First Brother CABG Social History [...] Form Strength Qnty SIG Indications Ordering Provider Prednisone 09/28/ Hx Tablets 10mg 30tabs 3 by mouth Bry, 2019 - every Anette 10/13/ morning x MD Kassy 2018 5d then 2 by mouth every morning x 5d then 1 by mouth every morning x5days Ibandronate 08/31/ Active Tablets 150mg 3tabs 1 by mouth M81.0 Macadam, Sodium 2017 every month Anette on empty MD Kassy stomach 60min before eating and do not lie down for >60min. Vitamin D3 08/19/ Active Tablets 2000Unit 90tabs 1 by mouth Bry Super Strength 2018 every day Anette Elena MD Triamcinolone 07/10/ Active Aerosol 55mcg/Act 16.500 1 sprays J01.90 Bry, Acetonide 2018 gm each Anette nostril MD Kassy twice a day Splint Wrist 04/24/ Active Misc 1units LEFT wrist M25.532 Aranza Dias/LEFT-RIGH 2016 splint any Shereen T/Reversible type C, RN MS covered, TELECOMMUNICATIONS FIELD ENGINEER want to immobilize wrist/ thumb on LEFT dx tendenitis Metoprolol 03/26/ Active Tablets 25mg 90tabs Take 1 I10 Macadam, Succinate ER 2016 ER 24HR Tablet Anette Every Night MD Kassy AT Bedtime Areds 2 OTC 01/18/ Active Eye H35.32 Larissa, 2015 Vitamins 2 Shereen Daily Cornel, 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 Clopidogrel 08/16/ Active Tablets 75mg 90tabs Take 1 I65.23 Bry Bisulfate 2013 Tablet Anette Elena MD I20.1 I25.10 Amlodipine 07/08/2014 Active Tablets 5mg [...] Capsules 100mg 14caps 1 by mouth R31. Carson Londono 11/11 twice a day 9 Anette Elena MD 04/23 06/11 18 Rosuvastatin Calcium 04/0 Hx Tablets 10mg 90tabs 1 by mouth E78. Bry 12/09 every day 2 Anette Elena MD 05/23 10/11 18 Chantix Starting Month 04/0 Hx Tablets 0.5mg 1month take as packet F17. Gurpreet Londono 11/11 X 11 & directs. 210 Anette 18 - 1 mg X MD Kassy 05/0 42 11/11 18 Chantix Continuing 04/0 Hx Tablets 1mg 60tabs 1 tablet per F17. Bry , Month Gurpreet 11/11 oral twice 210 Anette 18 - daily MD Kassy 04/23 11/11 18 Prednisone 10/0 Hx Tablets 20mg 10tabs 2 by mouth Bry, 11/11 every morning Anette Elena MD 100 04/10 17 Drisdol 2 Hx Capsules [id number] 10caps one tab weekly E55. Larissa, 06/11 nit till gone 9 Shereen C, 16 - 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 10/23 04/10 17 Pravastatin Sodium 10/0 Hx Tablets 20mg 30tabs 09/23- 1 every Zaira Samson 05/11 night at MD Isha 15 - bedtime as 10/23 tolerated 04/10 17 Zostavax Hx Solution Rec [id number] 1units 0.65cc sc x1 - Larissa, 05/11 nt/0.6 pls check cost Shereen C, 15 - 5ML with pt first 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 10/23 04/10 17 Fluticasone Propionate Hx Suspension [...] Aerosol 108(90 8.500g 2 p four times Adair44Selene Londono, 05/11 Base) m a day as needed 1 Anette 15 - mcg/Ac MD Kassy 12/22 t 06/11 16 Zostavax 08/22 Hx Solution Rec [id number] 1units 0.65cc sc x1 Zaira Samson 05/11 [...] Suspension 50mcg/ 1units 2 sprays b/l 381.81 Zaira Samson 07/14/2013 Act nostrils bid X MD Isha [...] Tablets 5mg 90tabs 1 by mouth 401.1 Chapin Zaira Besylate 07/08/2014 every day MD Isha 413.1 [...] Samples 2 sprays 388.70 Trabout, 12/03/2010 each reynold Knox qd Simvastatin 04/09/2010 - Hx Tablets 40mg [...] bid 401.1 Trabout , Besylate 08/06/2010 MD Aiblio 413.1 Vitamin D 07/10/2009 - Hx Capsules [id number] 12caps 1 po q 268.9 Trabout, 01/26/2010 week x MD Abiilo 12 Lovaza 07/10/2009 - Hx Capsules 1gm [...] CPT Code Status Date Vaccine Lot # 23671 Given 06/02/2018 Influenza Vac, Quadrivalent, Split, 0.5mL [id number] Dosage, [place] Use 63303 Given 07/28/2017 Pneumococcal 23 Immunization Adult Or [id number] Immunosuppressed Patient 60463 Given 06/11/2017 Influenza Vac, Quadrivalent, Split, 0.5mL [id number] Dosage, Im Use 22202 Given 06/22/2016 Influenza Vac, Quadrivalent, Split, 0.5mL Dosage, Im Use 89023 Given 06/28/2015 Prevnar 13 Pneumococal Conjugate Vaccine [id number] Q2038 Given 07/11/2014 Fluzone Trivalent Immunization Q2038 Given 07/11/2014 Fluzone Trivalent Immunization [id number] Q2038 Given 07/11/2014 Fluzone Trivalent Immunization Q2038 Given 07/14/2013 Fluzone Trivalent Immunization [id number] Q2038 Given 08/05/2011 Fluzone Trivalent Immunization [id number] 31517 Given 08/06/2010 Afluria Or Fluvirin Flu Vac Intramuscular [id number] 67077 Given 07/04/2009 Afluria Or Fluvirin Flu Vac Intramuscular [id number] 71136 Given 08/10/2008 Afluria Or Fluvirin Flu Vac Intramuscular 18756 Given 08/10/2008 Afluria Or Fluvirin Flu Vac Intramuscular [id number] 13178 Given 08/17/2007 Afluria Or Fluvirin Flu Vac Intramuscular [id number] 96713 Given 02/23/2007 Tetanus And Diptheria Toxoids For Adult Use-preservative free 65410 Given 05/01/2006 Pneumococcal 23 Immunization Adult Or Immunosuppressed Patient 28225 Given 05/01/2006 Pneumococcal 23 Immunization Adult Or [id number] 12/27 Immunosuppressed Patient 08879 Given 07/03/2005 Afluria Or Fluvirin Flu Vac Intramuscular [id number] 49958 Given 09/07/2004 Afluria Or Fluvirin Flu Vac Intramuscular 10954 Given 07/26/2003 Afluria Or Fluvirin Flu Vac Intramuscular 02863 Given 09/25/2000 Influenza Virus Vaccine, Whole Virus, [...] mmol/L 5-15 5 Laboratory test finding 08/17/2018 [facility] Magnesium 2.3 mg/dL 1.5-2.7 TSH 2.28 uIU/mL 0.35-4.94 Vitamin D 25 Hydroxy 23 ng/mL Low 30-100 6 Lipid 08/17/2018 [facility] Cholesterol 262 mg/dL High 50-199 Triglycerides 222 mg/dL High 30-200 HDL 38 mg/dL 35-85 7 Chol/ HDL Ratio 6.9 ratio High 3.7-5.6 VLDL 44 mg/dL High 2-29 LDL (Calc) 180 mg/dL High 20-99 8 CBC with Auto Diff-fcmg 07/10/2018 [facility] WBC 6.4 K/uL 4.1-11.0 RBC 5.10 M/uL [...] 17 finding <SEE NOTE> Comprehensive Met 12/22/2017 [facility] Sodium 143 mmol/L 135-146 18 Panel-FCMG Potassium [...] Gap 12 mmol/L 5-15 22 Lipid 12/22/2017 [facility] Cholesterol 254 mg/dL High 50-199 Triglycerides 261 [...] 0.0 K/uL 0.0-0.3 Comprehensive Metabolic (CMP) 12/12/2016 [facility] Sodium 145 mmol/L 135- 146 26 Potassium [...] High 20-99 32 Laboratory test finding 11/08/2016 [facility] Magnesium 2.3 mg/dL 1.5-2.7 Vit D,25 Hydroxy 18 ng/mL Low 31-100 CBC With Auto Diff 11/08/2016 [facility] WBC 8.0 K/uL 4.1-11.0 RBC 5.03 M/uL [...] High 20-99 37 Comprehensive Metabolic (CMP) 12/26/2015 [facility] Sodium 141 mmol/L 134- 142 Potassium 5.0 [...] 1.5-2.7 TSH 2.47 uIU/mL 0.35-4.94 Lipid 06/28/2015 [facility] Cholesterol 240 mg/dL High 50-199 Triglycerides 381 mg/dL High 30-200 HDL 32 mg/dL Low 35-85 40 Chol/ HDL Ratio 7.5 ratio High 3.7-5.6 VLDL 76 mg/dL High 2-29 LDL (Calc) 132 mg/dL High 20-99 41 Comprehensive Metabolic (CMP) 06/28/2015 [facility] Sodium 139 mmol/L 134- 142 Potassium 4.6 [...] % 4.1-5.9 CBC With Auto Diff 07/07/2012 [facility] WBC 6.4 K/uL 4.1-11.0 55 RBC 4.76 [...] Abs Basophils 0.0 K/uL 0.0-0.3 Comprehensive Metabolic ([facility]) 07/07/2012 [facility] Sodium 140 mmol/L 134- 142 [...] [facility] Lipase 39 U/L 11-82 Comprehensive Metabolic ([facility]) 02/03/2012 [facility] Sodium 140 mmol/L 134- 142 [...] Anitha Egfr >60 >60 60 Lipid 02/03/2012 [facility] Cholesterol 258 mg/dL High 50-199 Triglycerides 405 [...] 0.0 K/uL 0.0-0.3 Laboratory test finding 09/25/2011 [facility] Esr 6 mm/hr 0-20 CRP (C-Reactive) 0.61 mg/dL 0.00-0.75 Comprehensive Metabolic (CMP) 08/05/2011 [facility] Sodium 144 mmol/L 135- 144 65 Potassium [...] Anitha Egfr >60 >60 67 Lipid 08/05/2011 [facility] Cholesterol 168 mg/dL 50-199 Triglycerides 246 mg/dL High 10-150 HDL 40 mg/dL 35-85 68 Chol/ HDL Ratio 4.2 ratio 3.7-5.6 VLDL 49 mg/dL High 2-29 LDL (Calc) 79 mg/dL 20-129 69 Z#Hemoglobin A1c With Est Gluc 08/05/2011 [facility] Hemoglobin A1c 6.1 % High 4.1-5.[address] Glucose 128 71-140 Laboratory test finding 08/05/2011 [facility] Vit D,25 Hydroxy 22 ng/mL Low 31-100 TSH 3.33 uIU/mL 0.34-5.60 CBC With Auto Diff 08/05/2011 [facility] WBC 8.2 K/uL 4.1-11.0 RBC 4.84 M/uL [...] 74 Z#Hemoglobin A1c With Est Gluc 12/03/2010 [facility] Hemoglobin A1c 5.9 % 4.1-6.6 Eag 123 71-140 Lipid 12/03/2010 [facility] Cholesterol 172 mg/dL 50-199 Triglycerides 295 mg/dL High 10-150 HDL 39 mg/dL 35-85 75 Chol/HDL 4.4 ratio 3.7-5.6 VLDL 59 mg/dL High 2-29 LDL 74 mg/dL 20-129 76 Lipid Panel 08/06/2010 [facility] (Do not Use) Cholesterol 160 mg/dL 50 -199 77 [facility] [place] [address] [phone] Triglycerides 322 mg/dL High 10-150 HDL 36 mg/dL 35-85 78 Chol/HDL Ratio 4.4 Ratio 3.7-5.6 79 VLDL 64 mg/dL High 2-29 LDL (Calc) 60 mg/dL 20-129 80 CMP 08/06/2010 [facility] (Do not Use) Sodium 144 mmol/L 135-144 [facility] [place] [address] [phone] Potassium 4.7 mmol/L 3.6-5.2 81 Chloride 108 [...] not Use) Sodium 140 mmol/L 135-144 85 [facility] [place] [address] [phone] Potassium 3.8 mmol/L 3.6-5.2 86 Chloride 107 [...] not Use) Cholesterol 93 mg/dL 50- 199 [facility] [place] [address] [phone] Triglycerides 153 mg/dL High 10-150 HDL 22 mg/dL Low 35-85 90 Chol/HDL Ratio 4.2 Ratio 3.7-5.6 91 VLDL 31 mg/dL High 2-29 LDL (Calc) 40 mg/dL 20-129 92 Laboratory test 01/26/2010 [facility] (Do not Use) Vitamin D, 25 22 ng/mL Low 31-100 finding [facility] [place] [address] [phone] CBC With Auto 01/26/2010 [facility] (Do not Use) WBC 3.9 K/ul Low 4.0- 10.9 Diff [facility] [place] [address] [phone] RBC 4.80 M/ul 4.20-5.40 Hemoglobin 15.9 GM/dl [...] High 0.00- 3.00 93, 94 test finding [facility] Sensitivity mg/[place] [address] [phone] Vitamin D, 25 Hydroxy 32 ng/mL 31-100 Lipid Panel 10/09/2009 [facility] (Do not Use) Cholesterol 128 mg/dL 50 -199 [facility] [place] [address] [phone] Triglycerides 197 mg/dL High 10-150 HDL 34 mg/dL Low 35-85 95 Chol/HDL Ratio 3.8 Ratio 3.7-5.6 96 VLDL 39 mg/dL High 2-29 LDL (Calc) 55 mg/dL 20-129 97 CMP 10/09/2009 [facility] (Do not Use) Sodium 141 mmol/L 135-144 [facility] [place] [address] [phone] Potassium 4.4 mmol/L 3.6-5.2 Chloride 107 mmol/L [...] Use) WBC 7.1 K/ul 4.0- 10.9 100 [facility] [place] [address] [phone] RBC 4.73 M/ul 4.20-5.40 Hemoglobin 15.5 GM/dl [...] (Do not Use) Sodium 144 mmol/L 135-144 [facility] [place] [address] [phone] Potassium 4.5 mmol/L 3.6-5.2 101 Chloride 110 [...] not Use) Cholesterol 126 mg/dL 50 -199 [facility] [place] [address] [phone] Triglycerides 195 mg/dL High 10-150 HDL 31 mg/dL Low 35-85 104 Chol/HDL Ratio 4.1 Ratio 3.7-5.6 105 VLDL 39 mg/dL High 2-29 LDL (Calc) 56 mg/dL 20-129 106 Laboratory test 07/05/2009 [facility] (Do not Use) TSH 4.82 uIU/ml 0.34 -5.60 [place] [address] [phone] Vitamin D, 25 Hydroxy 25 ng/mL Low 31-100 Magnesium 2.2 mg/dL 1.8-2.5 Lipid Panel 06/02/2008 [facility] (Do not Use) Cholesterol 114 mg/dL 50 -199 107 [facility] [place] [address] [phone] Triglycerides 149 mg/dL 10-150 HDL 36 mg/dL Abnormal (>40) 108 Chol/HDL Ratio 3.2 Ratio 109 VLDL 30 mg/dL LDL (Calc) 48 mg/dL 20-129 110 CBC With Auto Diff 06/02/2008 [facility] (Do not Use) WBC 6.1 K/ul 4.0- 10.9 [facility] [place] [address] [phone] RBC 4.79 M/ul 4.20-5.40 Hemoglobin 15.8 GM/dl [...] Vitamin D, 25 30 ng/mL 19-58 finding [facility] [place] [address] [phone] CBC With Auto 08/17/2007 [facility] (Do not Use) WBC 8.0 K/ul 4.0-10.9 111 [place] [address] [phone] RBC 4.92 M/ul 4.20-5.40 Hemoglobin 16.1 GM/dl [...] Use) Free T4 0.72 ng/dL 0.50-1.60 finding [facility] [place] [address] [phone] TSH 3.39 uIU/ml 0.34-5.60 Lipid Panel 08/17/2007 [facility] (Do not Use) Cholesterol 140 mg/dL 50 -199 [facility] [place] [address] [phone] Triglycerides 269 mg/dL High 10-150 HDL 35 mg/dL 35-85 Chol/HDL Ratio 4.0 Ratio VLDL 54 mg/dL LDL (Calc) 51 mg/dL 20-129 CMP 08/17/2007 [facility] (Do not Use) Sodium 142 mmol/L 135-144 [facility] [place] [address] [phone] Potassium 5.3 mmol/L High 3.6-5.2 112 Chloride [...] [facility] (Do not Use) Blast N/A % [facility] [place] [address] [phone] Promyelocyte N/A % Myelocyte N/A % Metamyelocyte [...] not Use) WBC 8.6 K/ul 4.0- 10.9 [facility] [place] [address] [phone] RBC 5.05 M/ul 4.20-5.40 Hemoglobin 16.7 GM/dl [...] (Do not Use) Sodium 142 mmol/L 135-144 [facility] [place] [address] [phone] Potassium 4.5 mmol/L 3.6-5.2 Chloride 107 mmol/L [...] not Use) Cholesterol 243 mg/dL High 50-199 [facility] [place] [address] [phone] Triglycerides 310 mg/dL High 10-150 HDL 35 mg/dL 35-85 Chol/HDL Ratio 6.9 Ratio VLDL 62 mg/dL LDL (Calc) Triglyceride papo <SEE NOTE> mg/dL 117 Laboratory test 04/03/2007 [facility] (Do not Use) TSH 3.37 uIU/ml 0.34 -5.60 finding [facility] [place] [address] [phone] Direct LDL 138 mg/dL High 20-129 CBC 07/02/2005 [facility] (Do not Use) WBC 8.0 K/ul 4.1-10.9 [facility] [place] [address] [phone] RBC 4.83 M/ul 4.20-6.30 Hemoglobin 15.3 GM/dl [...] Use) TSH 3.25 uIU/ml 0.50 -6.00 finding [facility] [place] [address] [phone] CMP 07/02/2005 [facility] (Do not Use) Sodium 141 mmol/L 135-144 [facility] [place] [address] [phone] Potassium 4.2 mmol/L 3.6-5.2 Chloride 105 mmol/L [...] not Use) Cholesterol 222 mg/dL High 50-199 [facility] [place] [address] [phone] Triglycerides 310 mg/dL High 10-150 HDL 35 mg/dL 35-85 Chol/HDL Ratio 6.3 Ratio VLDL 62 mg/dL LDL (Calc) Triglyceride papo <SEE NOTE> mg/dL 119 Laboratory test 07/02/2005 [facility] (Do not Use) Direct LDL 137 mg/dL High 20-100 finding [facility] [place] [address] [phone] CBC 10/13/2003 [facility] (Do not Use) WBC 7.8 K/ul 4.1-10.9 [facility] [place] [address] [phone] RBC 5.25 M/ul 4.20-6.30 Hemoglobin 16.5 GM/dl [...] Use) TSH 4.09 uIU/ml 0.50 -6.00 finding [facility] [place] [address] [phone] CMP 10/13/2003 [facility] (Do not Use) Sodium 146 mmol/L High 135-145 [facility] [place] [address] [phone] Potassium 4.8 mmol/L 3.4-5.3 Chloride 109 mmol/L [...] not Use) Cholesterol 164 mg/dL 50 -199 [facility] [place] [address] [phone] Triglycerides 246 mg/dL High 30-200 HDL 33 mg/dL Low 35-85 Chol/HDL Ratio 5.0 Ratio VLDL 49 mg/dL LDL (Calc) 82 mg/dL 20-129 CBC 09/03/2002 [facility] (Do not Use) WBC 6.0 K/ul 4.1-10.9 [facility] [place] [address] [phone] RBC 5.14 M/ul 4.2-6.3 Hemoglobin 15.6 GM/dl [...] Use) TSH 2.97 uIU/ml 0.50 -6.00 finding [facility] [place] [address] [phone] CMP 09/03/2002 [facility] (Do not Use) Sodium 140 mmol/L 135-145 [facility] [place] [address] [phone] Potassium 4.2 mmol/L 3.4-5.3 Chloride 107 mmol/L [...] not Use) Cholesterol 200 mg/dL High 50-199 [facility] [place] [address] [phone] Triglycerides 388 mg/dL High 30-200 HDL 33 mg/dL Low 35-85 Chol/HDL Ratio 6.1 Ratio VLDL 78 mg/dL LDL (Calc) Triglyceride papo <SEE NOTE> mg/dL 20-129 120 Laboratory test 09/03/2002 [facility] (Do not Use) Direct LDL 122 mg/dL 20-129 finding [facility] [employer] [place] [address] [phone] 1 Updated reference range on new analyzer [...] 130-159 High: 160-189 Very high: >189 16 LABORATORY [facility]. [address] [place] [address] CYTOLOGY REPORT Source of Specimen(s): A: LBP [...] Out By Hudson Dhillon MD [facility] [employer] Instructor: Akosua SOLANO(ASCP) [facility] ICD Code: R31.9 CPT Code: A: 03614G Unless otherwise specified, testing performed by [facility] [employer] [address] [place] [id number] 17 Microbiology results SOURCE Clean Catch Midstream [...] Unless otherwise specified, testing performed by [facility] [employer] [address] [place] [address]25 65 This sample is drawn by:MM 66 [...] result Procedures Date Code Description Status 08/26/2018 148093606 Bone Mineral Density Test Completed 08/17/2018 36108 Electrocardiogram Complete Completed 06/11/2017 75015 Inj,Trigger Point(S) Single Or Multiple PTS, 1 Or 2 Completed Muscle Group( 11/08/2016 28626 Electrocardiogram Complete Completed 02/20/2015 71972 Airway Inhalation Treatment Completed 03/29/2014 31801253 Mammogram Completed 03/10/2014 91793 Electrocardiogram Complete Completed 03/10/2014 74232 Destruction Benign Lesions Other Than Skin Tags Up To Completed 14 Lesions 09/07/2012 99217 Destruc Any Method 2-14 Lesions,Each Pre Malig Completed 09/07/2012 51729 Destruction Lesion/Any Method Premalignant Lesions Completed 07/04/2009 34137 Admin Of Inj (Therapeutic Phrophylactic Or Diagnostic Completed Subq Inj 10/12/2008 41536 Destruction Benign Lesions Other Than Skin Tags Up To Completed 14 Lesions 10/12/2008 45103 Destruction Lesion/Any Method Premalignant Lesions Completed 10/12/2008 29775 Destruc Any Method 2-14 Lesions,Each Pre Malig Completed 10/09/2007 55063 Destruction Benign Lesions Other Than Skin Tags Up To Completed 14 Lesions 10/09/2007 44759 Destruc Any Method 2-14 Lesions,Each Pre Malig Completed 10/09/2007 78803 Destruction Lesion/Any Method Premalignant Lesions Completed 10/09/2007 50080 Remove Skin Tags Up To 15 Completed 08/24/2007 18986 Destruction Benign Lesions Other Than Skin Tags Up To Completed 14 Lesions 08/24/2007 53963 Remove Skin Tags Up To 15 Completed 04/03/2007 27117 Duplex Scan Extracranial Arteries, Complete Bilateral Completed Study 02/23/2007 63371 Electrocardiogram Complete Completed 07/03/2005 36485 Electrocardiogram Interpretation & Report Only Completed 07/03/2005 64089 Electrocardiogram Tracing Completed 04/10/2005 77650 Inject/Drain Joint/Bursa Major W/Out Ultrasound Completed Guidance 10/17/2003 54465 Shave Skin Lesion .6-1CM Trunk/Arm/Leg Completed 09/03/2002 26493 Electrocardiogram Complete Completed 05/22/2001 98650 Electrocardiogram Complete Completed Encounters Type Date Location Provider Dx Diagnosis Office Visit 09/01/2018 11:00a Sharad Espino PA I10 Essential ( primary) hypertension E78.2 Mixed hyperlipidemia I25.10 [facility] heart disease of [place] coronary artery w/o ang pctrs M81.0 Age-related osteoporosis w/o current pathological fracture Office Visit 08/17/2018 9:00a Sharad Espino PA Z00.01 Encounter for general adult medical exam w abnormal findings I25.10 Aths[facility] heart disease of [place] coronary artery w/o ang pctrs I10 Essential (primary) hypertension E78.2 Mixed hyperlipidemia J44.9 Chronic obstructive pulmonary disease, unspecified F17.210 Nicotine dependence, cigarettes, uncomplicated I65.29 Occlusion and stenosis of unspecified carotid artery E55.9 Vitamin D deficiency, unspecified 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812 LEFT upper quadrant abdominal tenderness J44.9 Chronic obstructive pulmonary disease, unspecified F17.210 Nicotine dependence, cigarettes, uncomplicated I25.10 Athscl heart disease of [place] coronary artery w/o ang pctrs I10 Essential (primary) hypertension E78.2 Mixed hyperlipidemia I65.29 Occlusion and stenosis of unspecified carotid artery Z23 Encounter for immunization Z68.25 Body mass index (BMI) 25.0-25.9, adult Office Visit 05/13/2018 3:40p Sharad Espino PA I25.10 Athscl heart disease of [place] coronary artery w/o ang pctrs I10 Essential [...] Espino PA I25.10 Athscl heart disease of [place] coronary artery w/o ang pctrs J44.9 Chronic obstructive pulmonary disease, unspecified F17.210 Nicotine dependence, cigarettes, uncomplicated I10 Essential (primary) hypertension E78.2 Mixed hyperlipidemia M54.42 Lumbago with sciatica, LEFT side M65.332 Trigger finger, LEFT middle finger 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, bilateral, stage unspecified Z68.26 Body mass index (BMI) 26.0-26.9, adult Office Visit 12/22/2017 9:40a Sharad Espino PA I25.10 Athscl heart disease of [place] coronary artery w/o ang pctrs J44.9 Chronic obstructive pulmonary disease, unspecified F17.210 Nicotine dependence, cigarettes, uncomplicated I10 Essential (primary) hypertension E78.2 Mixed hyperlipidemia M54.42 Lumbago with sciatica, LEFT side M65.332 Trigger finger, LEFT middle finger Z68.25 Body mass index (BMI) 25.0-25.9, adult Office Visit 07/28/2017 11:00a Sharad Espino PA I25.10 Athscl heart disease of [place] coronary artery w/o ang pctrs M54.42 Lumbago with sciatica, LEFT side F17.210 Nicotine dependence, cigarettes, uncomplicated I10 Essential (primary) hypertension M65.332 Trigger finger, LEFT middle finger Z23 Encounter for immunization Office Visit 07/02/2017 1:00p Sharad Espino PA M54.42 Lumbago with sciatica, LEFT side Office Visit 06/11/2017 1:00p Sharad Espino PA I25.10 Athscl heart disease of [place] coronary artery w/o ang pctrs I10 Essential (primary) hypertension E78.2 Mixed hyperlipidemia J44.9 Chronic obstructive pulmonary disease, unspecified F17.210 Nicotine dependence, cigarettes, uncomplicated 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, bilateral, stage unspecified M54.32 Sciatica, LEFT side M60.9 Myositis, unspecified Z23 Encounter for immunization Office Visit 03/18/2017 10:40a Sharad Espino PA I25.10 Athscl heart disease of [place] coronary artery w/o ang pctrs I10 Essential (primary) hypertension E78.2 Mixed hyperlipidemia F17.210 Nicotine dependence, cigarettes, uncomplicated L82.1 Other seborrheic keratosis 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, bilateral, stage unspecified Office Visit 12/12/2016 10:40a Anny Fleming PA M25.532 Pain in LEFT wrist E78.2 Mixed hyperlipidemia I10 Essential (primary) hypertension E55.9 Vitamin D deficiency, unspecified I25.10 Athscl heart disease of [place] coronary artery w/o ang pctrs F17.210 Nicotine dependence, cigarettes, uncomplicated Office Visit 11/08/2016 9:20a Anny Fleming PA Z00.00 Encntr for general adult medical exam w/o abnormal findings M25.532 Pain in LEFT wrist E78.2 Mixed hyperlipidemia I10 Essential (primary) hypertension E55.9 Vitamin D deficiency, unspecified I25.10 Athscl heart disease of [place] coronary artery w/o ang pctrs F17.210 Nicotine dependence, cigarettes, uncomplicated I95.9 Hypotension, unspecified I49.1 Atrial premature depolarization Office Visit 06/26/2016 3:20p Anny Fleming PA M25.532 Pain in LEFT wrist Office Visit 04/24/2016 2:00p Shereen Brian, M25.532 Pain in LEFT wrist 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 Office Visit 01/19/2016 9:40a Shereen Brian, I25.10 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 w/o ang pctrs I10 Essential (primary) hypertension E78.2 Mixed hyperlipidemia E55.9 Vitamin D deficiency, unspecified R21 Rash and other nonspecific skin eruption F17.210 Nicotine dependence, cigarettes, uncomplicated Office Visit 06/28/2015 10:20a Zaira Sanchez MD 268.9 Vitamin D Deficiency Unspec I78.1 Nevus, non-neoplastic Z00.01 Encounter for general adult medical exam w abnormal findings Z23 Encounter for immunization I25.10 Athscl heart disease of [place] coronary artery w/o ang pctrs I10 Essential (primary) hypertension E78.2 Mixed hyperlipidemia E55.9 Vitamin D deficiency, unspecified I65.29 Occlusion and stenosis of unspecified carotid artery Z72.0 Tobacco use Office Visit 02/20/2015 2:00p Zaira Sanchez MD 478.9 Upper Resp Tract Disease Other & Unspec 305.1 Tobacco Use Disorder Office Visit 02/06/2015 2:15p Anette Grubbs 461.0 Sinusitis Acute MD Kassy Maxillary 491.21 Bronchitis Obstructive Chronic W/Acute Exacerbation Office Visit 09/08/2014 11:00a Zaira Sanchez MD 401.1 Hypertension Benign 414.01 Coronary Atherosclerosis [place] 272.2 Hyperlipidemia Mixed 305.1 Tobacco Use Disorder 433.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 268.9 Vitamin D Deficiency Unspec Office Visit 03/10/2014 11:20a Zaira Sanchez MD V70.0 Exam (Adult ) General Medical Routine AT Health Care Facility 414.01 Coronary Atherosclerosis [place] 401.1 Hypertension Benign 272.2 Hyperlipidemia Mixed 268.9 Vitamin D Deficiency Unspec 305.1 Tobacco Use Disorder 433.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 702.11 Seborrheic Keratosis Inflamed 702.19 Seborrheic Keratosis Other V77.1 Screening Diabetes Mellitus Office Visit 11/11/2013 8:40a Zaira Sanchez MD 433.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 414.01 Coronary Atherosclerosis [place] 401.1 Hypertension Benign 272.2 Hyperlipidemia Mixed 305.1 Tobacco Use Disorder 268.9 Vitamin D Deficiency Unspec Office Visit 08/11/2013 5:15p Meagan Osorio 414.01 Levy Knox MD Atherosclerosis [place] 433.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 401.1 Hypertension Benign 272.2 Hyperlipidemia Mixed 305.1 Tobacco Use Disorder Office Visit 07/14/2013 3:15p Meagan Osorio 414.01 Coronary MD Abilio Atherosclerosis [place] 433.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 Artery W/O [...] Brian, 789.02 Pain Abdominal LEFT 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 [place] Office Visit 04/08/2012 3:30p Abilio Ernandez, 719.41 Pain Joint Shoulder MD Region 401.1 Hypertension Benign 272.2 Hyperlipidemia Mixed 305.1 Tobacco Use Disorder Office Visit 02/03/2012 10:30a Abilio Ernandez MD 719.41 Pain Joint Shoulder Region 401.1 Hypertension Benign 272.2 Hyperlipidemia Mixed 790.21 Impaired Fasting Glucose Office Visit 10/25/2011 10:45a Abilio Ernandez 719.41 Pain Joint Shoulder MD Region Office Visit 09/25/2011 2:00p Abilio Ernandez 719.41 Pain Joint Shoulder MD Region Office [...] Tobacco Use Disorder Office Visit 12/03/2010 9:15a Meagan Trabout, Abilio, 789.00 Pain Abdominal MD Unspec Site 401.1 [...] 1:00p Abilio Ernandez, 719.67 Joint Symptoms Other Ankle & Foot Office Visit 08/24/2008 2:50p Abilio Ernandez, 780.4 Dizziness & MD Giddiness 724.3 Sciatica 272.2 Hyperlipidemia Mixed 305.1 Tobacco Use Disorder 433.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 Office Visit 06/03/2008 12:30p Abilio Ernandez MD 724.2 Lumbago 724.3 Sciatica 272.2 Hyperlipidemia Mixed Office Visit 02/03/2008 1:15p Shereen Brian, 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2 Blood Pressure Reading Elevated W/O Hypertension Office Visit 02/23/2007 1:00p Anette Grubbs V72.81 Jareth Elena MD Preoperative Cardiovascular 272.0 Hypercholesterolemia Pure 305.1 Tobacco Use Disorder V76.10 Screening For Malignant Neoplasm Breast 785.9 Cardiovascular Symptoms Other V06.5 Tetanus Diphtheria (DT) 702.11 Seborrheic Keratosis Inflamed Office Visit 07/03/2005 Meagna Osorio V04.81 Need For Prophylactic 1:30p MD Abilio Vaccination & Inoculation/Influenza 447.9 Arteries And Arterioles Unspec Disorders 496 COPD Airway Obstruction Chronic Not Class Elsewhere 786.2 Cough 272.2 Hyperlipidemia Mixed V72.84 Examination Preoperative Unspec Office Visit 04/10/2005 4:10p Abilio Ernandez, 719.41 Pain Joint Shoulder MD Region Office Visit 01/27/2004 12:50p Abilio Ernandez, 780.4 Dizziness & Giddiness 388.30 Tinnitus Unspecified Office Visit 10/14/2003 1:10p Abilio Ernandez, 272.2 Hyperlipidemia Mixed 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 724.3 Sciatica 443.9 Peripheral Vascular Disease Unspec Office Visit 06/24/2003 3:20p Abilio Ernandez MD 496 COPD Airway Obstruction Chronic Not Class Elsewhere 786.2 Cough Office Visit 06/16/2003 2:30p Shereen Brian 493.90 Asthma Unspec W/O C, 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 Office Visit 08/18/2000 10:40a Cathy Lopez, RN 110.3 Dermatophytosis Groin & A.N.P. Perianal Area Office Visit 05/12/2000 9:30a Abilio Ernandez, V76.9 Screening Malignant MD Neoplasm Unspec Plan of Treatment Future Appointment(s):02/16/2019 9:00 am - Sharad Muñoz PA at [id number] - Sharad Muñoz PAI10 Essential (primary) hypertensionComments:Well [...] lipids.A/P:to consider treatment.I25.10 Atherosclerotic heart disease of [place] coronary artery withComments:stable and sees kwtnkhX80.0 Age-related osteoporosis without current pathological fractuComments:DEXA with -2.4. recommend start bisphos. Rx'd Boniva monthly. A /P:to consider treatment. Rx sent to Pharmacy.
[2018-10-24 23:13] LABS: TSH (Thyroid Stimulating Horm) 4.11 mcIU/mL (0.34-5.60)
[2018-10-25 02:10] VITALS: BP 142/63
== END 2018-10-25 02:11 | disposition home or self-care (01) ==
LOC: ED 22:04
DX: R00.2 Palpitations (principal); M79.602 Pain in left arm; R06.02 Shortness of breath; I25.119 Atherosclerotic heart disease of native coronary artery with unspecified angina pectoris; I10 Essential (primary) hypertension; Z95.5 Presence of coronary angioplasty implant and graft; Z88.5 Allergy status to narcotic agent; F17.210 Nicotine dependence, cigarettes, uncomplicated
CPT/HCPCS: 36415; 71045; 80053; 83605; 84443; 84484; 85025; 93005; 99283

== ENCOUNTER 2018-12-15 07:57 | Observation (INO) | payer MEDICARE, BC ==
[2018-12-15] MEDS ORDERED: Midazolam* 1 MG/ML 5 ML VIAL (5 MG) ONE (09:25)
[2018-12-15] MEDS ORDERED: fentaNYL* 50 MCG/ML 2 ML VIAL (100 MCG VIAL) ONE (09:25)
[2018-12-15] MEDS ORDERED: VERAPAMIL 2.5 MG/ML 2 ML VIAL ** 5 mg/2 ml ONE (09:26)
[2018-12-15] MEDS ORDERED: Heparin 2 UNITS/ML IVPREMIX* 2,000 UNIT/1,000 ML BAG IV ONE (09:26)
[2018-12-15] MEDS ORDERED: Heparin(*) 1000 UNIT/ML 10 ML VIAL CATH LAB IV ONE (09:26)
[2018-12-15] MEDS ORDERED: Iohexol 350 (CONTRAST) 200 ML MDV IV ONE ×2 (09:27→10:16)
[2018-12-15] MEDS ORDERED: nitroGLYCERIN DRIP* 25,000 MCG/250 ML BTL ONE (09:27)
[2018-12-15] MEDS ORDERED: Lidocaine 1% INJ* 10 MG/ML 30 ML SDV ONE (09:27)
[2018-12-15] MEDS ORDERED: Nitroglycerin TAB 0.4 MG* 0.4 MG TAB SL PRN (11:08)
[2018-12-15] MEDS ORDERED: NS 0.9% 1000 ML** 1,000 ML IV SCH (11:15)
[2018-12-15] MEDS ORDERED: amLODIPine TAB* 5 MG PO SCH ×2 (12:00→17:00)
[2018-12-15] MEDS ORDERED: Metoprolol Succinate XL TAB* 50 MG PO SCH (17:00)
[2018-12-15] MEDS ORDERED: Aspirin EC TAB* 81 MG TAB.EC PO SCH (17:00)
[2018-12-15] MEDS ORDERED: Clopidogrel TAB* 75 MG PO SCH (17:00)
[2018-12-15] MEDS ORDERED: Polyethylene Glycol 3350* 17 GM PACKET PO PRN (17:40)
[2018-12-15] MEDS ORDERED: Mouth Piece, Nicotine* 1 EACH CARTRIDGE INH ONE (18:00)
[2018-12-15] MEDS: Nicotine Inhaler* 10 MG AMP Q2H PRN CRAVING INH (18:32)
--- NOTE | 2018-12-15 21:11 | CATH ---
CC: Dr. Robert Jeffers; Dr. Anette Londono CARDIAC CATHETERIZATION AND INTERVENTIONAL REPORT: DATE OF PROCEDURE: 12/15/18 INDICATION FOR PROCEDURE: The patient with recurrent episodes of shortness of breath and fatigue with exertion with new findings on stress echo showing significant inferior and low posterolateral wall hypokinesis with reduced EF into the 40% to 45% range from normal back 2 months ago; assessed for the presence of significant coronary artery disease with history of prior stents placed in right coronary artery. PROCEDURES: Coronary arteriography, primary stenting of the distal right coronary artery prior to the PDA with a 2.75 x 12 mm long Xience Vee stent overlap just a little more proximally with a 2.75 x 12 mm long Synergy drug- eluting stent with a placement of a 3.0 x 24 mm Synergy stent in the mid portion of the right coronary artery. CONSENT: The patient was interviewed and examined in the holding area, where the risks and benefits were explained. She understood and wished to proceed. APPROACH UTILIZED: The right radial artery was assessed under ultrasound guidance and found to be acceptable, and as such, this was the approach utilized. EQUIPMENT UTILIZED: 1. Right radial artery sheath with a 6-[place] Glidesheath. 2. The diagnostic guidewire was a Wholey exchange/guidewire. 3. Diagnostic coronary arteriography was performed utilizing a 5-[place] TIG-4 curved catheter. 4. Interventional guiding catheter was a 6-[place] IR 1.0 Heartrail III guide catheter. 5. Interventional wire was a All Star guidewire. 6. Stents utilized were: A 2.75 x 12 mm long Xience Vee, a 2.75 x 12 mm long Synergy drug-eluting stent, a 3.0 x 24 mm long Synergy drug eluting stent. 7. The closure device utilized was a radial artery band. 8. Post stent deployment balloon catheters - a 2.75 x 8 mm long NC Emerge balloon, and a 3.0 x 12 long NC Emerge balloon. PRE-CARDIAC CATHETERIZATION LABORATORY RESULTS: Hemoglobin and hematocrit of 15.6 and 46 with a platelet count of 154,000. BUN and creatinine of 13 and 0.6. Sodium 142, potassium 3.9, chloride 105, bicarb 28, INR was 0.97. MEDICATIONS GIVEN: The patient had already taken her aspirin and Plavix, which she takes in the evening and has not missed any doses of this. The patient received Versed 0.5 mg in addition to a radial artery cocktail with 300 mcg of nitroglycerin, 3000 units of heparin, and 3 mg of verapamil, an additional 1000 units of heparin was given to perform the interventional procedure with ACT checked. DESCRIPTION OF PROCEDURE: The patient was brought to the cardiovascular laboratory, where a formal time-out was performed. She was prepped and draped in a sterile fashion and under ultrasound guidance, the right radial artery was entered and sheath was placed, diagnostic coronary arteriography was performed. The decision was made to intervene into the right coronary artery. Guiding views were obtained with a guide catheter. The patient received an additional anticoagulation and ACT was monitored. The 2.75 x 12 mm long stent was deployed into the distal lesion followed by stenting of the mid lesion. Following this, high-pressure balloon inflations were made throughout the area that was stented. Following this, the decision was made to place one more stent into the most distal portion of the right coronary artery prior to the PDA. The 2.75 x 12 mm long Xience stent was deployed. It was deployed to high pressure. Following this, the artery was assessed. The wire was removed and the sheath was removed and hemostasis was obtained with a Vasc Band. The total contrast utilized was 220 cc of Omnipaque dye. The radiation exposure included a 16.2 minutes of fluoro time. The air kerma radiation was 2105 mGy. The DAP radiation was 12,994 mcg per m2. RESULTS: CORONARY ARTERIOGRAPHY: A. Left coronary artery: 1. Left main - the left main had heavy calcification seen. There was no significant luminal reduction noted with a mild area of distal narrowing of 10% to 15%. 2. Left anterior descending artery - the left anterior descending artery had calcification seen in its proximal and mid area. The mid area of the left anterior descending artery had a mild 35% to 40% narrowing seen. The LAD supplied a high small caliber first and second diagonal branch followed by a larger sized mid diagonal branch. The LAD traversed to the apical region and just slightly on to the distal inferior wall. Of note, septal perforators supplied collateral blood flow to the posterior descending artery of the right coronary artery. 3. Circumflex artery - a nondominant vessel supplying a high first obtuse marginal/trifurcation marginal branch, which was thin like in nature. The mid portion of the circumflex had a mid diagonal branch, which had an 85% narrowing seen in its proximal to osteal portion. The continuation of circumflex supplied one more low-lying obtuse marginal branch. B. Right coronary artery - a dominant vessel supplying the PDA and multiple posterior left ventricular branches, they climbed the posterior lateral wall. There was proximal narrowing of the right coronary artery within the proximal to mid stent with a narrowing of in-stent restenosis approximately 35% to 40%. The midsegment of the right coronary artery had more significant 65% to 70% followed by a critical 90% stenosis just prior to turning on to the inferior surface of the heart. Past this point was an another 85% to 90% stenosis seen and just prior to the posterior descending artery was a 65% to 70%. The rest of the right coronary artery had mild luminal regularities, but did not appear to have significant stenosis. INTERVENTION INTO RIGHT CORONARY ARTERY: A. Distal 65% to 70% lesion (appeared worse after interventional wire had been advanced with some haze noted) - reduction of 70% stenosis with primary stenting utilizing a 2.75 x 12 mm long Xience Vee stent with less than 10% residual stenosis NITO-3 flow, no dissection seen. B. Distal right coronary artery lesion - successful reduction of critical 85 % to 90% stenosis with primary stenting and a high-pressure balloon dilatation. Post deployment with residual stenosis of less than 10% NITO-3 flow, no dissection seen. C. Mid right coronary artery lesion - successful reduction critical 90% to 95% stenosis and area rounded with residual stenosis of 10% NITO-3 flow, no dissection seen. OVERALL ASSESSMENT: Successful intervention into mid to distal right coronary artery as described. The patient apparently has been significantly intolerant of statins documented in the past. As such Dr. Jeffers had discussed with her the idea of injectable agents and she was to think this over. I echoed his sentiments and strongly recommended that she proceed to get on them as soon as possible. She was instructed to call Dr. Jeffers's office to set that up as soon as possible to get placed on them. Further primary cardiology management will be under the guidance of Dr. Robert Jeffers, her primary rehabilitation services director. Dual antiplatelet therapy should continue for at least 6 months, but consideration could be made toward 1 year given her diffuse disease and significant number of stents having been placed.Aggressive control of her diabetes is also paramount to continued cardiac management. [id number]/[facility] #: [id number] MTDD
[2018-12-16 05:47] LABS: ABS Basophils 0 10^3/ul (0-0.2); ABS Eosinophils 0.1 10^3/ul (0-0.6); ABS Lymphocytes 1.8 10^3/ul (1.0-4.8); ABS Monocytes 0.7 10^3/ul (0-0.8); ABS Neutrophils 4.1 10^3/ul (1.5-7.7); ABS Nucleated RBC 0 10^3/ul; Eosinophil % 1.3 %; Hematocrit 39 % (33-41); Hemoglobin 12.9 g/dL (12.0-16.0); Mean Corpuscular HGB Conc 34 g/dL (31-36); Mean Corpuscular Hemoglobin 31 pg (27-31); Mean Corpuscular Volume 93 fL (80-97); Mean Platelet Volume 9.3 fL (7.4-10.4); Nucleated Red Blood Cells % 0; Platelet Count 124 10^3/uL (150-450); Red Blood Count 4.17 10^6 /uL (3.70-4.87); Red Cell Distribution Width 16 % (10.5-15); White Blood Count 6.6 10^3/uL (3.5-10.8)
[2018-12-16 06:03] LABS: Albumin 3.6 g/dL (3.2-5.2); BUN/Creatinine Ratio 29.3 (8-20); Calcium 8.5 mg/dL (8.6-10.3); EGFR African American 120.7 (>60); EGFR Non-African American 99.8 (>60); Globulin 1.8 g/dL (2-4); HDL Cholesterol 27.8 mg/dL; Potassium 4.4 mmol/L (3.5-5.0); Total Bilirubin 0.4 mg/dL (0.2-1.0); Total Protein 5.4 g/dL (6.4-8.9)
[2018-12-16] MEDS: Nicotine Inhaler* 10 MG AMP Q2H PRN CRAVING INH (08:55)
[2018-12-16] MEDS ORDERED: Multivitamins/Minerals TAB PO SCH (09:00)
--- NOTE | 2018-12-16 10:13 | DS ---
DISCHARGE SUMMARY: DATE OF ADMISSION: 12/15/18 DATE OF DISCHARGE: 12/16/18 FINAL DIAGNOSES: Ischemic cardiomyopathy with progressive coronary artery disease. SECONDARY DIAGNOSES: Include: 1. Hyperlipidemia. 2. Chronic obstructive lung disease. 3. Coronary artery disease with a history of prior stent to the right coronary artery. 4. Tobacco abuse. HISTORY OF PRESENT ILLNESS: The patient is a pleasant 83-year-old female who was referred for cardiac catheterization by Dr. Jeffers, her primary director software development , for new findings of inferior lobe posterolateral wall hypokinesis with EF of 40% to 45% on a recent stress echo. She also had shortness of breath and perhaps mild chest tightness with symptoms. She underwent cardiac catheterization yesterday on 12/15/18, which revealed progressive disease in her right coronary artery in the mid segment and the distal segment and underwent successful stenting of these areas with drug- eluting stents as described in the cardiac catheterization report (please refer to the cardiac catheterization for complete details). She has residual disease involving a circumflex obtuse marginal branch(proximal to ostial 85-90%) which although long, was narrowed in caliper. Overnight, she has done well with no significant sequelae. She denies any recurrent chest, jaw, or arm discomfort. Her cardiac enzymes were negative. EKG today reveals sinus rhythm with PVC, which she is known to have with a mild sinus arrhythmia. There is T-wave inversion subtly in aVF and lead 2. One PVC is noted. PHYSICAL EXAMINATION: At the time of discharge revealed the patient to be stable, in no acute distress. Blood pressure 131/67, pulse 67, respirations 20 , O2 saturation 98%. Neck was supple. No increased JVP. Carotids with a bruit on the left. Conjunctivae were pink. Sclerae were clear. Lungs revealed no accessory muscle usage. There was good excursion. Lungs had a question of minimal wheeze on the left side. No active rales or rhonchi. Heart revealed a regular rate and rhythm with PVCs. No significant systolic or diastolic murmur. Abdomen was soft, nontender. Extremities: Without edema. The right radial artery was well healed. There was excellent antegrade flow. Neuro: The patient was alert, oriented with normal mentation. Musculoskeletal : The patient moves all extremities appropriately. Psychological: The patient with normal affect. DIAGNOSTIC STUDIES/LAB DATA: Laboratory results reveal hemoglobin and hematocrit of 12.9 and 39 with a white count of 6600, platelet count of 124, 000. Sodium 138, potassium 4.4, chloride 107, bicarb 25, BUN and creatinine are 17 and 0.5 with a glucose of 92. Total cholesterol was 179, LDL of 105, HDL of 27.8. MEDICATIONS AT THE TIME OF DISCHARGE: Include: 1. Amlodipine 5 mg a day. 2. Aspirin 81 mg a day. 3. Clopidogrel 75 mg a day. 4. Metoprolol succinate 25 mg a day. 5. Vitamin tablet. PLAN: Of note, she has been intolerant to all the statins in the past and Dr. Jeffers has discussed with her the equation of the injectable agents which she clearly needs. Of note, she is on Vascepa 1 g 2 tablets twice a day with meals according to his note. On further querying the patient, she actually never started this medicine. She was too scared because she was afraid of getting a side effect. I have now told her to get started on the Vascepa when she gets home and told her it is not a statin drug. Ideally, however, she needs to the injectable agents and she needs to discuss that with Dr. Jeffers. She has a followup scheduled with him and we reviewed that as well. [id number]/[facility] #: [id number] [facility]
[2018-12-16 11:56] VITALS: BP 121/66
== END 2018-12-16 12:15 | disposition home or self-care (01) ==
LOC: CHICATH 07:57 → ICU 11:08
PROVIDERS: ADMIT Internal Medicine Cardiovascular Disease; ATTEND Internal Medicine Cardiovascular Disease
DX: I25.5 Ischemic cardiomyopathy (principal); I25.10 Atherosclerotic heart disease of native coronary artery without angina pectoris; F17.200 Nicotine dependence, unspecified, uncomplicated; E78.5 Hyperlipidemia, unspecified; J44.9 Chronic obstructive pulmonary disease, unspecified; Z95.5 Presence of coronary angioplasty implant and graft
CPT/HCPCS: 36415; 76937; 80053; 80061; 85025; 85347; 87641; 93005; 93454; 96372; A9270-GY; C1725; C1769; C1876; C1887; C9600-RC; G0378; J1644; J2250; J3010

== ENCOUNTER 2019-06-02 14:36 | Emergency (ER) | payer MEDICARE, BC ==
[2019-06-02] MEDS ORDERED: Acetaminophen TAB* 325 MG PO ONE (16:01)
--- NOTE | 2019-06-02 16:02 | ED ---
Back Pain - HPI Summary HPI Summary: This patient is a 83 year old F presenting to [facility] accompanied by her niece with a chief complaint of constant lower back pain 4 days ago. Pt states she was at a retreat 4 days ago where she sat on a wooden chair. She developed constant lower back pain since then. Pt denies any trauma. She notes she lost 50 pounds from her L5 S1. The patient rates the pain 8/10 in severity. Symptoms aggravated by nothing. Symptoms alleviated by nothing. Patient reports right ankle swelling, numbness/tingling of her toes. Patient denies problems urinating or defecating, fever, chills. Medications reviewed. Allergies noted. PMHx of stents. Pt denies hx of diabetes. Pt is a smoker. Pt is not able to ambulate well Pt took Tylenol for the pain. - History of Current Complaint Chief Complaint: EDBackInjuryPain Stated Complaint: SEVERE BACK PAIN PER PT Time Seen by Provider: 06/02/19 15:38 Hx Obtained From: Patient Hx Last Menstrual Period: post Onset/Duration: Sudden Onset, Lasting Days - 4, Still Present Onset/Duration: Started Days Ago - 4, Still Present Timing: Constant Severity Initially: Severe Severity Currently: Severe Pain Intensity: 8 Pain Scale Used: 0-10 Numeric Aggravating Symptom(s): Nothing Alleviating Symptom(s): Nothing Associated Signs And Symptoms: Positive: Numbness - toes, Other - positive - right ankle swelling. negative - problems urinating or defecating, chills. Negative: Fever - Allergies/Home Medications Allergies/Adverse Reactions: Allergies Allergy/AdvReac Type Severity Reaction Status Date / Time morphine AdvReac Headache Verified 06/02/19 14:41 Home Medications: Home Medications Evolocumab [Repatha Syringe] 1 dose INJ SEE INSTRUCTIONS 06/02/19 [History Confirmed 06/02/19] Icosapent Ethyl [Vascepa] 1 dose PO SEE INSTRUCTIONS 06/02/19 [History Confirmed 06/02/19] amLODIPine TAB* [Norvasc 5 mg TAB*] 10 mg PO DAILY 06/02/19 [History Confirmed 06/02/19] PMH/Surg Hx/FS Hx/Imm Hx Previously Healthy: No Endocrine/Hematology History: Denies: Hx Diabetes Cardiovascular History: Reports: Hx Angina, Hx Coronary Artery Disease, Hx Hypercholesterolemia, Hx Hypertension, Other Cardiovascular Problems/Disorders - cardiac stent, CARDIAC CATH 1998 Denies: Hx Congestive Heart Failure Respiratory History: Reports: Hx Chronic Obstructive Pulmonary Disease (COPD), Other Respiratory Problems/Disorders - smoker History: Denies: Hx Dialysis, Hx Renal Disease Sensory History: Reports: Hx Contacts or Glasses, Hx Macular Degeneration, Hx Hearing Problem - pressure in left ear Denies: Hx Cataracts - implants, Hx Hearing Aid Opthamlomology History: Reports: Hx Contacts or Glasses, Hx Macular Degeneration Denies: Hx Cataracts - implants - Surgical History Surgical History: Yes Surgery Procedure, Year, and Place: 1995 ruptured fallopian tube/ovary removal. 1997-inguinal repair. endartarectomy. cardiac cath w/ stents Hx Anesthesia Reactions: Yes - becomes severly hypotensive Infectious Disease History: No Infectious Disease History: Denies: Hx Clostridium Difficile, Hx Hepatitis, Hx Human Immunodeficiency Virus (HIV), Hx of Known/Suspected MRSA, Hx Shingles, Hx Tuberculosis, Hx Known/ Suspected VRE, Hx Known/Suspected VRSA, History Other Infectious Disease, Traveled Outside the [place] in Last 30 Days - Family History Known Family History: Positive: Cardiac Disease - Father at 55 from CAD, Diabetes, Other - Colon cancer. Diverticulosis. - Social History Alcohol Use: None Hx Substance Use: No Substance Use Type: Reports: None Hx Tobacco Use: Yes Smoking Status (MU): Heavy Every Day Tobacco Smoker Type: Cigarettes Amount Used/How Often: 1 ppd Have You Smoked in the Last Year: Yes Review of Systems Negative: Fever, Chills Genitourinary: Other - negative - problems urinating or defecating Musculoskeletal: Other - positive - lower back pain Positive: Edema - right ankle Positive: Numbness - toes All Other Systems Reviewed And Are Negative: Yes Physical Exam - Summary Physical Exam Summary: Constitutional: Well-developed, Well-nourished, Alert. (-) Distressed Skin: Warm, Dry HENT: Normocephalic; Atraumatic Eyes: Conjunctiva normal Neck: Musculoskeletal ROM normal neck. (-) JVD, (-) Stridor, (-) Tracheal deviation Cardio: Rhythm regular, rate normal, Heart sounds normal; Intact distal pulses; The pedal pulses are 2+ and symmetric. Radial pulses are 2+ and symmetric. (-) Murmur Pulmonary/Chest wall: Effort normal. (-) Respiratory distress, (-) Wheezes, (-) Rales Abd: Soft, (-) tenderness, (-) Distension, (-) Guarding, (-) Rebound Musculoskeletal: (-) Edema. Midline back tenderness. Limited ROM and flexion. Able to ambulate with shuffling gait Lymph: (-) Cervical adenopathy Neuro: Alert, Oriented x3 Psych: Mood and affect Normal Triage Information Reviewed: Yes Vital Signs On Initial Exam: Initial Vitals Temp Pulse Resp BP Pulse Ox 98.1 F 76 16 163/92 97 06/02/19 14:37 06/02/19 14:37 06/02/19 14:37 06/02/19 14:37 06/02/19 14:37 Vital Signs Reviewed: Yes Diagnostics - Vital Signs Vital Signs Temp Pulse Resp BP Pulse Ox 06/02/19 14:37 98.1 F 76 16 163/92 97 - Laboratory Lab Statement: Any lab studies that have been ordered have been reviewed, and results considered in the medical decision making process. - CT Lumbar Spine CT Interpretation Completed By: Radiologist Summary of CT Findings: IMPRESSION: 1. NO EVIDENCE FOR FRACTURE. 2. 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 3. NONOBSTRUCTING LEFT RENAL CALCULUS. These findings were reviewed by Dr. Mullen. Back Pain Course/Dx - Course Course Of Treatment: Patient has a history of lower back pain that has been controlled over the past year after a injection her spine. Patient had worsening her pain actually on an uncomfortable bench. Patient had negative CT scan of her lower spine for any compression fracture. Patient was given Tylenol here. Patient has no red flag symptoms necessitating emergent MRI today. - Diagnoses Provider Diagnoses: Lower back pain Discharge ED - Sign-Out/Discharge Documenting (check all that apply): Patient Departure - discharge Patient Received Moderate/Deep Sedation with Procedure: No - Discharge Plan Condition: Stable Disposition: HOME Prescriptions: Lidocaine PATCH 5%* [Lidoderm 5% Patch*] 1 patch TRANSDERM DAILY 7 Days #7 patch Patient Education Materials: Back Pain (ED) Referrals: Sharad Muñoz [Primary Care Provider] - 2 Days Additional Instructions: Take 1000mg Tylenol every 6 hours as needed for pain. Use your lidocaine patches. Follow up with your primary care provider within 1-3 days. Come back to the ED if you develop an inability to use bathroom, numbness around your buttocks or for worsening symptoms. - Billing Disposition and Condition Condition: STABLE Disposition: Home - Attestation Statements Document Initiated by Scribe: Yes Documenting Scribe: Jorge Mendez Provider For Whom Antonio is Documenting (Include Credential): Dr. Aric Mullen MD Scribe Attestation: Jorge Pena, scribed for Dr. Aric Mullen MD on 06/02/19 at 1735. Scribe Documentation Reviewed: Yes Provider Attestation: The documentation as recorded by the Jorge garcia accurately reflects the service I personally performed and the decisions made by me, Dr. Aric Mullen MD Status of Scribe Document: Viewed
[2019-06-02 17:19] VITALS: BP 158/89
== END 2019-06-02 17:10 | disposition home or self-care (01) ==
LOC: ED 14:36
DX: M54.5 Low back pain (principal); M47.896 Other spondylosis, lumbar region; N20.0 Calculus of kidney; F17.210 Nicotine dependence, cigarettes, uncomplicated; I25.119 Atherosclerotic heart disease of native coronary artery with unspecified angina pectoris; E78.00 Pure hypercholesterolemia, unspecified; I10 Essential (primary) hypertension; Z95.5 Presence of coronary angioplasty implant and graft; J44.9 Chronic obstructive pulmonary disease, unspecified
CPT/HCPCS: 72131; 99282; A9270-GY

== ENCOUNTER 2020-06-10 19:12 | Observation (INO) ==
[2020-06-10 21:16] LABS: ABS Basophils 0.1 10^3/ul (0-0.2); ABS Eosinophils 0.1 10^3/ul (0-0.6); ABS Lymphocytes 1.9 10^3/ul (1.0-4.8); ABS Monocytes 0.6 10^3/ul (0-0.8); ABS Neutrophils 4.8 10^3/ul (1.5-7.7); Eosinophil % 0.8 %; Hematocrit 42 % (35-47); Hemoglobin 14.7 g/dL (12.0-16.0); Lymphocyte % 25.8 %; Mean Corpuscular HGB Conc 35 g/dL (31-36); Mean Corpuscular Hemoglobin 33 pg (27-31); Mean Corpuscular Volume 92 fL (80-97); Mean Platelet Volume 8.4 fL (7.4-10.4); Nucleated Red Blood Cells % 0.1; Platelet Count 173 10^3/uL (150-450); Red Blood Count 4.52 10^6 /uL (3.70-4.87); Red Cell Distribution Width 15 % (10-15); White Blood Count 7.6 10^3/uL (3.5-10.8)
[2020-06-10 21:32] LABS: Albumin 4.1 g/dL (3.2-5.2); Albumin/Globulin Ratio 1.9 (1-3); BUN/Creatinine Ratio 27.1 (8-20); C Reactive Protein 4.36 mg/L (<8.01); Calcium 9.4 mg/dL (8.6-10.3); EGFR African American 96.9 (>60); EGFR Non-African American 80.1 (>60); Globulin 2.2 g/dL (2-4); Potassium 3.4 mmol/L (3.5-5.0); Total Bilirubin 0.3 mg/dL (0.2-1.0); Total Protein 6.3 g/dL (6.4-8.9)
[2020-06-10 21:34] LABS: Troponin I 0.01 ng/mL (<0.03)
[2020-06-10 21:47] LABS: TSH Ultra Thyroid Stim Horm 2.97 mcIU/mL (0.34-5.60)
[2020-06-11 01:16] LABS: Magnesium 2.1 mg/dL (1.9-2.7)
[2020-06-11] MEDS ORDERED: Potassium Chloride LIQUID 20 MEQ/15 ML LIQUID PO ONE (01:28)
[2020-06-11 04:36] LABS: ABS Eosinophils 0.1 10^3/ul (0-0.6); ABS Lymphocytes 2.3 10^3/ul (1.0-4.8); ABS Monocytes 0.7 10^3/ul (0-0.8); ABS Neutrophils 4.7 10^3/ul (1.5-7.7); Eosinophil % 1.3 %; Hematocrit 43 % (35-47); Hemoglobin 14.7 g/dL (12.0-16.0); Lymphocyte % 29.7 %; Mean Corpuscular HGB Conc 34 g/dL (31-36); Mean Corpuscular Hemoglobin 32 pg (27-31); Mean Corpuscular Volume 93 fL (80-97); Mean Platelet Volume 8.8 fL (7.4-10.4); Platelet Count 181 10^3/uL (150-450); Red Blood Count 4.63 10^6 /uL (3.70-4.87); Red Cell Distribution Width 15 % (10-15); White Blood Count 7.8 10^3/uL (3.5-10.8)
[2020-06-11 04:39] LABS: BUN/Creatinine Ratio 24.6 (8-20); Calcium 9.4 mg/dL (8.6-10.3); EGFR African American 113.6 (>60); EGFR Non-African American 93.9 (>60); Potassium 3.6 mmol/L (3.5-5.0)
[2020-06-11] MEDS ORDERED: Potassium Chlor 20 meq TAB.ER PO ONE ×2 (05:23→09:20)
[2020-06-11] MEDS ORDERED: KCL 20 MEQ/100 ML IVPREMIX 20 MEQ/100 ML BAG IV ONE (05:23)
[2020-06-11] MEDS: Heparin 5000 UNITS/ML 1 mL VIAL SUBCUT SCH ×3 (05:23→20:39)
[2020-06-11 05:50] LABS: Urine Appearance Clear; Urine Bilirubin Negative (Negative); Urine Blood Negative (Negative); Urine Color Straw; Urine Glucose Negative (Negative); Urine Ketones Negative (Negative); Urine Nitrite Negative (Negative); Urine Protein Negative (Negative); Urine Specific Gravity 1.004 (1.010-1.030); Urine Urobilinogen Negative (Negative)
[2020-06-11] MEDS: Cholecalciferol (VIT D3) 1,000 unit TAB PO SCH (09:03)
[2020-06-11] MEDS: Aspirin EC 81 mg TAB.EC (enteric coated) PO SCH (09:03)
[2020-06-11] MEDS: Multivitamins/Minerals TAB PO SCH (09:03)
[2020-06-12] MEDS: Heparin 5000 UNITS/ML 1 mL VIAL SUBCUT SCH ×2 (05:42→13:51)
[2020-06-12 06:37] LABS: BUN/Creatinine Ratio 28.6 (8-20); Calcium 8.9 mg/dL (8.6-10.3); EGFR African American 96.9 (>60); EGFR Non-African American 80.1 (>60); Magnesium 2.3 mg/dL (1.9-2.7); Potassium 4.1 mmol/L (3.5-5.0)
[2020-06-12] MEDS: Cholecalciferol (VIT D3) 1,000 unit TAB PO SCH (08:46)
[2020-06-12] MEDS: Aspirin EC 81 mg TAB.EC (enteric coated) PO SCH (08:47)
[2020-06-12] MEDS: Multivitamins/Minerals TAB PO SCH (08:47)
[2020-06-12] MEDS ORDERED: Regadenoson 0.4 MG/5 ML SYRINGE ONE (12:34)
[2020-06-12 16:00] VITALS: BP 157/66
== END 2020-06-12 16:30 | disposition home or self-care (01) ==
LOC: ED 19:12 → MEDTELE 19:12
PROVIDERS: ADMIT Internal Medicine; ATTEND Internal Medicine